=== PATIENT | female | born 1950 | race Caucasian/White ===

== ENCOUNTER 2023-10-15 13:21 | Emergency (ER) | payer OTHER, SELFPAY ==
[2023-10-15 13:29] VITALS: BP 194/97
[2023-10-15 14:02] LABS: % Basophils 0.8 % (0-2); % Eosinophils 2.6 % (0-6); % Immature Granulocytes 0.4 % (0-0.5); % Lymphocytes 21.4 % (20.5-51.1); % Monocytes 10.2 % (1.7-9.3); % Neutrophils 64.6 % (42.2-75.2); Absolute Basophils 0.1 10^3/uL (0-0.2); Absolute Eosinophils 0.2 10^3/uL (0-0.7); Absolute Lymphocytes 1.7 10^3/uL (1.2-3.4); Absolute Monocytes 0.8 10^3/uL (0.1-0.6); Absolute Neutrophils 5.2 10^3/uL (1.4-6.5); Hematocrit 39.4 % (37.0-47.0); Hemoglobin 13.4 g/dL (12.0-16.0); Mean Corpuscular Hgb 29.8 pg (27.0-31.0); Mean Corpuscular Volume 87.8 fL (81.0-99.0); Mean Platelet Volume 9.3 fL (7.4-10.4); Nucleated Red Blood Cells % 0 %; Platelet Count 324 10^3/uL (130-400); Red Blood Cell Count 4.49 10^6/uL (4.20-5.40); Red Cell Dist. Width 13.5 % (11.5-14.5)
[2023-10-15 14:18] LABS: ALT (SGPT) 27 U/L (0-35); AST (SGOT) 27 U/L (14-36); Albumin 4.3 g/dl (3.5-5.0); Alkaline Phosphatase 105 U/L (38-126); Blood Urea Nitrogen 22 mg/dl (7-17); Calcium 9.8 mg/dl (8.4-10.2); Carbon Dioxide 24 mmol/L (22-30); Chloride 103 mmol/L (98-107); Glucose 133 mg/dl (70-99); Potassium 4.2 mmol/L (3.5-5.1); Sodium 137 mmol/L (135-145); Total Bilirubin 0.7 mg/dl (0.2-1.3); Total Protein 7.3 g/dl (6.3-8.2); eGFR > 60.00
[2023-10-15 14:26] LABS: Troponin I < 0.012 ng/ml
--- NOTE | 2023-10-15 16:43 | ED.GENMED ---
History of Present Illness
General
Chief Complaint: Blood Pressure Problem
Source: patient
Exam Limitations: none
Time Seen by Provider: 10/15/23 16:16
Nursing documentation reviewed up to this point in time: agreed with
Travel History
Have you had any contact with someone who has COVID-19?: No
Do you have any symptoms of coronavirus? Fever > 100 degrees, chills, cough, shortness of breath, sore throat, loss of taste or smell, muscle aches, or headache?: No
History of Present Illness
History of Present Illness:
73-year-old female past history of hypertension hiatal hernia reflux presents to the ER for evaluation. She reports her hiatal hernia has been acting up in the past several days has had pain in epigastric area after eating. She feels like she
needs to sit up for a while after eating and that her pain does resolve. Time she feels that her back but this is typical of her reflux pain. She has not seen GI for this. She takes imbv-gds-rndctij Mylanta. In addition she is also has had some
right shoulder pain and right scapular pain which radiates to her right upper arm. She reports this is only worse with moving her right arm or laying on her right shoulder. She denies any actual injury. She has taken occasional Advil. She does
not currently either pain.
She had no associated shortness of breath. She came to the ER today because she was worried about her symptoms and the blood pressure was going up.
Past History
Past History
ED Past Medical History: GERD, HTN and Hypothyroidism
ED Past Surgical History: Cholecystectomy and Orthopedic
Social History
Tobacco: Non-smoker
Alcohol: None
Drug: None
Personal:
Living: with family
Review of Systems
Review of Systems
Allergies reviewed?: Yes
All Other Systems: ROS reviewed and negative except as documented in HPI and ROS
Constitutional: Reports no symptoms; Denies fever, fatigue or chills
EENT: Reports no symptoms
Respiratory: Denies trouble breathing
Cardiac: Denies chest pain, diaphoresis or syncope
ABD/GI: Reports other (Patient has had intermittent epigastric pain after eating which radiates to her back)
: Reports no symptoms
Musculoskeletal: Reports other (Intermittent pain from right shoulder blade to right upper arm)
Phy Exam
General Physical Exam
General Presentation: no apparent distress
General age: appears stated age
General Skin: warm and dry
General Habitus: normal
General Mental: alert
General Hydration: appears well hydrated
Cardiovascular Exam
Cardiovascular Exam: regular rate/rhythm, no murmur and normal peripheral pulses
Gastrointestinal Exam
Gastrointestinal Exam: normal bowel sounds, non tender and soft
Neurological Exam
Neurological Exam: alert and oriented x3
Musculoskeletal Exam
Musculoskeletal Exam: other (Normal inspection to right upper extremity no obvious swelling or redness very mild discomfort with full range of motion to right shoulder)
Skin Exam
Skin Exam: normal color and warm/dry
Psychiatric Exam
Psychiatric Exam: normal mood/affect
Course
Orders/Labs/Results
Orders:
Orders
10/15/23 13:31
Electrocardiogram (*1) Urgent
Reason for Study: Hypertension, Benign
EKG- Treatment ONCE
10/15/23 13:39
Complete Blood Count/With Diff Urgent
Comprehensive Metabolic Panel Urgent
Troponin I Urgent
10/15/23 17:03
Chest [CR Chest - 2 Views ] Urgent
Comment:
Reason For Exam: pain
Abnormal Lab Results
10/15/23
13:39
Absolute Monos (auto) 0.8 H 10^3/uL
(0.1-0.6)
Monocytes % 10.2 H %
(1.7-9.3)
BUN 22 H mg/dl
(7-17)
Glucose 133 H mg/dl
(70-99)
10/15/23 13:39
10/15/23 13:39
Vital Signs
Initial and Last Documented VS:
Initial Vital Signs
Temp Pulse Resp BP Pulse Ox
98.6 F 85 18 194/97 96
10/15/23 13:29 10/15/23 13:29 10/15/23 13:29 10/15/23 13:29 10/15/23 13:29
Last Documented Vital Signs
Temp Pulse Resp BP Pulse Ox
98.6 F 82 23 145/101 94
10/15/23 13:29 10/15/23 17:00 10/15/23 17:00 10/15/23 17:00 10/15/23 17:00
MDM/Problems Addressed
Differential Diagnosis Includes:
not limited to: reflux, known hiatal hernia , right shoulder tendonitis, radicular pain
MDM/Problems Addressed:
Patient is a 73-year-old female with no cardiac history she has a history of hypertension a known hiatal hernia and reflux. She has had issues with her hiatal hernia over the past several days and feels discomfort after eating feels the need to sit
up after eating and feels pain in her back with this. She denies any actual chest pain. She however has also had pain to the right shoulder and back which shoots down her right arm. She was concerned about both of the symptoms and because of this
reports her blood pressure was elevated which prompted her to come to the ER. She presents awake alert no acute distress. Patient has had issues over the past several days, negative cardiac troponin, no acute findings on EKG. Patient is awake
alert no acute distress. No abdominal discomfort normal LFTs normal unremarkable labs patient no acute distress here in the ER. no shoulder pain presenty
Will DC with follow-up with GI will have patient take [id number]-chpnkrv Pepcid and will also refer to Ortho for possible radicular type pain/possible tendinitis
Chronic conditions affecting care:
known hiatial hernia feels similar s/s now. known htn
*Critical Care Note
Total Time (30-74mins, 75-104mins- exclusive of procedures): Not Applicable
ED Attending Note
-
Portions of this chart may have been created with voice recognition software.� Occasional wrong word or��sound alike� substitutions may have occurred due to the inherent limitations of voice recognition software.
Discharge Plan
Departure
Patient Disposition: Home (Routine Discharge)
Date of Disposition: 10/15/23
Time of Disposition: 18:31
Patient with high blood pressure during this ER visit?: Yes
Condition: Fair
Covid-19: Not Applicable
Discharge Problem:
epigastric pain
Instructions: High Blood Pressure (DC), Shoulder Pain (DC), Abdominal Pain, Adult ED, BLOOD PRESSURE
Prescriptions:
No Action
ondansetron [Zofran ODT] 8 MG tablet,disintegrating
8 mg PO TIDPRN PRN (Reason: vomiting) Qty: 15 0RF
bisoprolol-hydrochlorothiazide 1 EACH tablet
1 ea PO DAILY
cyclobenzaprine 10 MG tablet
5 mg PO TID Qty: 15 0RF
liothyronine 5 MICROGRAM tablet
15 mcg PO DAILY 0RF
ibuprofen 800 MG tablet
800 mg PO TID Qty: 15 0RF
cephalexin 500 mg capsule
500 mg PO Q12H 7 Days Qty: 14 0RF
phenazopyridine [Pyridium] 100 mg tablet
100 mg PO TID PRN (Reason: Pain with urination) Qty: 6 0RF
Referrals:
Praneeth Campoverde MD [Family Provider] -
Gabe Moreira MD [Active] -
Josephine Olivo DO [Active] -
Activity Restrictions/Additional Instructions:
As discussed you may try ihzd-rgn-qhmeroc Pepcid but follow-up with family doctor as well as GI for further evaluation of your hiatal hernia and symptoms. Follow-up with orthopedics for further evaluation of your right arm/shoulder pain. He may
need more imaging to further evaluate this. Return if any worsening of symptoms
Interventions
Interventions:
*Risk Screen - Suicide Last Done: 10/15/23 13:29
*General Assessment Last Done: 10/15/23 13:29
*Neglect/Abuse Screening Last Done: 10/15/23 13:29
ED- Fall Risk Assessment Last Done: 10/15/23 16:48
*ED COVID-19 Vaccine History Last Done: 10/15/23 13:29
ED- Cardiac Assessment Last Done: 10/15/23 16:52
ED- Neurological Assessment Last Done: 10/15/23 16:48
ED- Pulmonary Assessment Last Done: 10/15/23 16:48
[2023-10-15 16:48] VITALS: BMI 38.5
[2023-10-15 16:56] VITALS: BP 139/101
[2023-10-15 17:00] VITALS: BP 145/101
== END 2023-10-15 18:45 | disposition home or self-care (01) ==
LOC: EMR 13:21
PROVIDERS: Emergency Medicine; EMERGENCY PHYSICIAN Emergency Medicine; FAMILY PHYSICIAN Internal Medicine
DX: R10.13 Epigastric pain (principal); I10 Essential (primary) hypertension; K21.9 Gastro-esophageal reflux disease without esophagitis; K44.9 Diaphragmatic hernia without obstruction or gangrene
CPT/HCPCS: 99285; 71046; 80053; 84484; 85025; 93005

== ENCOUNTER 2024-05-27 13:06 | Outpatient (RCR) | payer OTHER, SELFPAY | END 2024-05-27 23:59 | disposition home or self-care (01) | LOC: RPT 13:06 | PROVIDERS: ATTENDING PHYSICIAN Physician Assistant Medical; FAMILY PHYSICIAN Internal Medicine | DX: M62.838 Other muscle spasm (principal); M25.511 Pain in right shoulder; Z73.6 Limitation of activities due to disability | CPT/HCPCS: 97010; 97110; 97140; 97162 ==

== ENCOUNTER 2024-06-24 12:54 | Outpatient (RCR) | payer OTHER, SELFPAY | END 2024-06-24 23:59 | disposition home or self-care (01) | LOC: RPT 12:54 | PROVIDERS: ATTENDING PHYSICIAN Physician Assistant Medical; FAMILY PHYSICIAN Internal Medicine | DX: M62.838 Other muscle spasm (principal); M25.511 Pain in right shoulder; Z73.6 Limitation of activities due to disability; M54.2 Cervicalgia | CPT/HCPCS: 97010; 97110; 97140 ==

== ENCOUNTER 2024-08-11 06:22 | Day surgery (SDC) | payer OTHER, SELFPAY | END 2024-08-11 12:27 | disposition home or self-care (01) | LOC: GI 06:22 | PROVIDERS: ATTENDING PHYSICIAN Internal Medicine Gastroenterology | DX: R10.84 Generalized abdominal pain (principal); K57.30 Diverticulosis of large intestine without perforation or abscess without bleeding; K64.0 First degree hemorrhoids; R13.10 Dysphagia, unspecified; K22.89 Other specified disease of esophagus; K31.7 Polyp of stomach and duodenum; K63.5 Polyp of colon; D12.2 Benign neoplasm of ascending colon | CPT/HCPCS: 45385; 45380; 43239; 88305; 88342 ==

== ENCOUNTER 2024-12-10 16:48 | Inpatient (IN) | payer OTHER, SELFPAY ==
[2024-12-10] VITALS (35 sets, daily range): BP systolic 70–133; BP diastolic 20–119; BMI 38.6
[2024-12-10 12:41] LABS: % Basophils 0.2 % (0-2); % Eosinophils 0.1 % (0-6); % Immature Granulocytes 0.6 % (0-0.5); % Lymphocytes 10.6 % (20.5-51.1); % Neutrophils 80.5 % (42.2-75.2); Absolute Immature Granulocytes 0.1 10^3/uL (0-0.05); Absolute Lymphocytes 1.3 10^3/uL (1.2-3.4); Absolute Neutrophils 9.8 10^3/uL (1.4-6.5); Hematocrit 34.6 % (37.0-47.0); Hemoglobin 11.4 g/dL (12.0-16.0); Mean Corp Hgb Conc. 32.9 g/dL (33.0-37.0); Mean Corpuscular Hgb 29.7 pg (27.0-31.0); Mean Corpuscular Volume 90.1 fL (81.0-99.0); Mean Platelet Volume 10.7 fL (7.4-10.4); Nucleated Red Blood Cells % 0.2 %; Platelet Count 424 10^3/uL (130-400); Red Blood Cell Count 3.84 10^6/uL (4.20-5.40); White Blood Cell Count 12.1 10^3/uL (4.8-10.8)
[2024-12-10 12:54] LABS: Lactic Acid 2.5 mmol/L (0.7-2.0)
[2024-12-10 12:56] LABS: ALT (SGPT) 48 U/L (0-35); AST (SGOT) 50 U/L (14-36); Albumin 3.7 g/dl (3.5-5.0); Alkaline Phosphatase 110 U/L (38-126); Blood Urea Nitrogen 58 mg/dl (7-17); Calcium 9.4 mg/dl (8.4-10.2); Carbon Dioxide 21 mmol/L (22-30); Chloride 103 mmol/L (98-107); Estimated Creatinine Clearance 36 ml/min; Glucose 167 mg/dl (70-99); Lipase 71 U/L (23-300); Potassium 5.3 mmol/L (3.5-5.1); Sodium 135 mmol/L (135-145); Total Protein 6.6 g/dl (6.3-8.2); eGFR 31.47
[2024-12-10 13:14] LABS: NT-proBNP > 27000 pg/ml
--- NOTE | 2024-12-10 13:17 | ED.GENMED ---
History of Present Illness
<Mckenzie Ortiz PA-C - Last Filed: 12/10/24 15:22>
General
Chief Complaint: Cold/Flu/URI Symptoms
Source: patient
Exam Limitations: none
Time Seen by Provider: 12/10/24 11:07
Nursing documentation reviewed up to this point in time: agreed with
History of Present Illness
History of Present Illness:
74 y/o F with h/o HTN, IBS
here with gen fatigue, low bp, cough
cough started 2 weeks ago and is mostly dry but occ productive
she has felt fevers come and go, t max 100.5
she finally went to her PCP 2 days ago who noted her BP was low 90/50s which is unusual for her. he adalberto dher to stop her BP med
ordered labs and cxr but pt was too eweak to get it done yesterday
then last night was getting woken feelin ganxious and abdomianl pain
she apparently has had abdomina pain for months, related to suspected IBS but since being sick she has had more abdominal pain
she never had chest pain, pleuritic pain, significant SOB
she denies vomiting, diarrhea
has some constpation sometimes
has bentyl for her abdomianl pain to take from GI doctor from time to time
she was given tessalon for her cogh yesterday but it didn't help and hse felt sluggish so she didn't take any more doses
Past History
<Mckenzie Ortiz PA-C - Last Filed: 12/10/24 15:22>
Past History
ED Past Medical History: GERD, HTN and Hypothyroidism
ED Past Surgical History: Cholecystectomy and Orthopedic
Social History
Tobacco: Non-smoker
Alcohol: None
Drug: None
Personal:
Living: with family
Review of Systems
<Mckenzie Ortiz PA-C - Last Filed: 12/10/24 15:22>
Review of Systems
Allergies reviewed?: Yes
All Other Systems: Not applicable
Phy Exam
<Mckenzie Ortiz PA-C - Last Filed: 12/10/24 15:22>
Physical Exam
Physical Exam:
GENERAL: Alert , in no apparent distress, nonotixc, no distress
EYE: pupils equal and reactive
NECK: Supple
ENT: o/p clr, mmm.
CARDIAC: Regular rate and rhythm .no edema
LUNGS: occ cough, no tachypnea, sligh trales L base; no obvious murmur
ABDOMEN: Soft, without focal tenderness, no r/g, no cvat, normal bowel sounds
NEUROLOGICAL: Alert and oriented, no focal neuro deficits
SKIN: Warm and dry, skin intact.
MUSCULOSKELETAL: No edema, well perfused. neg estefanía's sign
PSYCH: Normal and appropriate interaction.
Course
<Mckenzie Ortiz PA-C - Last Filed: 12/10/24 15:22>
Orders/Labs/Results
Orders:
Orders
12/10/24 11:59
CR Abdomen - 2 Views Urgent
Reason For Exam: abd pain, constpation
CR Chest - 2 Views Urgent
Comment:
Reason For Exam: fever, cough x 2 weeks
12/10/24 12:33
Complete Blood Count/With Diff Urgent
Comprehensive Metabolic Panel Urgent
Lactic Acid Urgent
Lipase Urgent
NT-proBNP Urgent
Troponin I Urgent
12/10/24 13:17
Electrocardiogram (*1) Urgent
Reason for Study: Fatigue / Weakness
EKG- Treatment ONCE
12/10/24 13:34
Azithromycin 500 mg/250 ml [Zithromax Infusion] 500 mg in 250 ml IV NOW
CefTRIAXone [Rocephin] 2,000 mg IV NOW STA
12/10/24 13:40
Echo 2D MMode Color/Doppler Urgent
Reason for Study: elevated troponin, pneumonia
12/10/24 13:41
Sterile Water [Sterile Water For Injection] 20 ml .ROUTE .STK-MED
12/10/24 13:51
Aspirin Chewable [Low Strength Aspirin] 324 mg PO NOW STA
12/10/24 14:26
Ondansetron Injectable [Zofran] 4 mg IV NOW STA
12/10/24 14:55
Admit Patient As Directed
Co-Sign Provider:
Level of Care: Inpatient admission
Assign to:: IMU- Intermediate Care
Physician / Group: Dr. Cole
Diagnosis: Acute heart failure , HFrEF
Patient Condition: Serious
Reason for Hospitalization: Acute heart failure
Expected length of stay greater than two midnights?: Yes
ELOS- Estimated Length of Stay in days: 2
I certify the patient meets the requirements for IP care: Yes
Code Status As Directed
Resuscitation Status: Full Code
Activity As Directed
Activity Level: With Assistance
Notify MD As Directed
Notify physician if: Bridge Admission orders placed.
Notify attending physician:
-- upon arrival to unit
OR
-- when patient is identified as an ED hold
Vital Signs As Directed
Frequency: Per unit guidelines
O2 Therapy [RESP] Routine
Titrate/Wean O2 to maintain O2 sat greater than (%): 92
12/10/24 14:58
Morphine Sulfate 2 mg .ROUTE .STK-MED ONE
12/10/24 14:59
PRN Pain Medication Management As Directed
May give lesser potent ordered pain med per pt: Yes
preference::
Protocol:: Medication orders for pain may be administered in a
manner that supports deferring to patient preference
when the pt is:
- Requesting an ordered lesser potent pain medication.
Least to most potent pain medications are defined
as: acetaminophen < NSAID < tramadol < opioids
(morphine, oxycodone, hydromorphone).
- Requesting a lesser dose of the same medication IF
ORDERED.
- Requesting a less intrusive route of administration
if both routes are prescribed by the provider (PO <
IV).
12/10/24 Dinner
Cholesterol Lowering
Fluid Restriction: 1500 mL/day (50 oz)
Cholesterol Lowering: Sodium, 2 Gram
0.9% Sodium Chloride 1000 ml [Nss] 1,000 ml IV BOLUS
12/10/24 15:01
Morphine Sulfate 2 mg IV NOW STA
12/10/24 15:03
DX Deep Vein Thrombosis Video Routine
12/10/24 15:12
0.9% Sodium Chloride 500 ml [Nss] 500 ml IV BOLUS
12/10/24 16:00
Flush (0.9% Sodium Chloride) [Flush (Nss)] See Dose Instructions IV PER PROTOCOL
12/10/24 20:00
Heparin 5,000 units SC Q12
Abnormal Lab Results
12/10/24
12:33
WBC 12.1 H 10^3/uL
(4.8-10.8)
RBC 3.84 L 10^6/uL
(4.20-5.40)
Hgb 11.4 L g/dL
(12.0-16.0)
Hct 34.6 L %
(37.0-47.0)
MCHC 32.9 L g/dL
(33.0-37.0)
Plt Count 424 H 10^3/uL
(130-400)
MPV 10.7 H fL
(7.4-10.4)
Abs Immat Gran (auto) 0.1 H 10^3/uL
(0-0.05)
Absolute Neuts (auto) 9.8 H 10^3/uL
(1.4-6.5)
Absolute Monos (auto) 1.0 H 10^3/uL
(0.1-0.6)
Immature Gran % 0.6 H %
(0-0.5)
Neutrophils % 80.5 H %
(42.2-75.2)
Lymphocytes % 10.6 L %
(20.5-51.1)
Potassium 5.3 H mmol/L
(3.5-5.1)
Carbon Dioxide 21 L mmol/L
(22-30)
BUN 58 H mg/dl
(7-17)
Creatinine 1.7 H mg/dL
(0.6-1.0)
Glucose 167 H mg/dl
(70-99)
Lactic Acid 2.5 H mmol/L
(0.7-2.0)
AST 50 H U/L
(14-36)
ALT 48 H U/L
(0-35)
Troponin I 12.500 H* ng/ml
12/10/24 12:33
12/10/24 12:33
Vital Signs
Initial and Last Documented VS:
Initial Vital Signs
Temp Pulse Resp BP Pulse Ox
36.7 C 99 18 110/83 99
12/10/24 10:39 12/10/24 10:39 12/10/24 10:39 12/10/24 10:39 12/10/24 10:39
Last Documented Vital Signs
Temp Pulse Resp BP Pulse Ox
36.8 C 69 27 105/80 98
12/10/24 14:31 12/10/24 14:15 12/10/24 14:15 12/10/24 14:00 12/10/24 14:15
<Kevin Cason MD - Last Filed: 12/10/24 13:42>
Orders/Labs/Results
Orders:
Orders
12/10/24 11:59
CR Abdomen - 2 Views Urgent
Reason For Exam: abd pain, constpation
CR Chest - 2 Views Urgent
Comment:
Reason For Exam: fever, cough x 2 weeks
12/10/24 12:33
Complete Blood Count/With Diff Urgent
Comprehensive Metabolic Panel Urgent
Lactic Acid Urgent
Lipase Urgent
NT-proBNP Urgent
Troponin I Urgent
12/10/24 13:17
Electrocardiogram (*1) Urgent
Reason for Study: Fatigue / Weakness
EKG- Treatment ONCE
12/10/24 13:34
Azithromycin 500 mg/250 ml [Zithromax Infusion] 500 mg in 250 ml IV NOW
CefTRIAXone [Rocephin] 2,000 mg IV NOW STA
12/10/24 13:40
Echo 2D MMode Color/Doppler Urgent
Reason for Study: elevated troponin, pneumonia
12/10/24 13:41
Sterile Water [Sterile Water For Injection] 20 ml .ROUTE .STK-MED
12/10/24 13:51
Aspirin Chewable [Low Strength Aspirin] 324 mg PO NOW STA
12/10/24 14:26
Ondansetron Injectable [Zofran] 4 mg IV NOW STA
12/10/24 14:55
Admit Patient As Directed
Co-Sign Provider:
Level of Care: Inpatient admission
Assign to:: IMU- Intermediate Care
Physician / Group: Dr. Cole
Diagnosis: Acute heart failure , HFrEF
Patient Condition: Serious
Reason for Hospitalization: Acute heart failure
Expected length of stay greater than two midnights?: Yes
ELOS- Estimated Length of Stay in days: 2
I certify the patient meets the requirements for IP care: Yes
Code Status As Directed
Resuscitation Status: Full Code
Activity As Directed
Activity Level: With Assistance
Notify MD As Directed
Notify physician if: Bridge Admission orders placed.
Notify attending physician:
-- upon arrival to unit
OR
-- when patient is identified as an ED hold
Vital Signs As Directed
Frequency: Per unit guidelines
O2 Therapy [RESP] Routine
Titrate/Wean O2 to maintain O2 sat greater than (%): 92
12/10/24 14:58
Morphine Sulfate 2 mg .ROUTE .STK-MED ONE
12/10/24 14:59
PRN Pain Medication Management As Directed
May give lesser potent ordered pain med per pt: Yes
preference::
Protocol:: Medication orders for pain may be administered in a
manner that supports deferring to patient preference
when the pt is:
- Requesting an ordered lesser potent pain medication.
Least to most potent pain medications are defined
as: acetaminophen < NSAID < tramadol < opioids
(morphine, oxycodone, hydromorphone).
- Requesting a lesser dose of the same medication IF
ORDERED.
- Requesting a less intrusive route of administration
if both routes are prescribed by the provider (PO <
IV).
12/10/24 Dinner
Cholesterol Lowering
Fluid Restriction: 1500 mL/day (50 oz)
Cholesterol Lowering: Sodium, 2 Gram
0.9% Sodium Chloride 1000 ml [Nss] 1,000 ml IV BOLUS
12/10/24 15:01
Morphine Sulfate 2 mg IV NOW STA
12/10/24 15:03
DX Deep Vein Thrombosis Video Routine
12/10/24 15:12
0.9% Sodium Chloride 500 ml [Nss] 500 ml IV BOLUS
12/10/24 16:00
Flush (0.9% Sodium Chloride) [Flush (Nss)] See Dose Instructions IV PER PROTOCOL
12/10/24 20:00
Heparin 5,000 units SC Q12
Abnormal Lab Results
12/10/24
12:33
WBC 12.1 H 10^3/uL
(4.8-10.8)
RBC 3.84 L 10^6/uL
(4.20-5.40)
Hgb 11.4 L g/dL
(12.0-16.0)
Hct 34.6 L %
(37.0-47.0)
MCHC 32.9 L g/dL
(33.0-37.0)
Plt Count 424 H 10^3/uL
(130-400)
MPV 10.7 H fL
(7.4-10.4)
Abs Immat Gran (auto) 0.1 H 10^3/uL
(0-0.05)
Absolute Neuts (auto) 9.8 H 10^3/uL
(1.4-6.5)
Absolute Monos (auto) 1.0 H 10^3/uL
(0.1-0.6)
Immature Gran % 0.6 H %
(0-0.5)
Neutrophils % 80.5 H %
(42.2-75.2)
Lymphocytes % 10.6 L %
(20.5-51.1)
Potassium 5.3 H mmol/L
(3.5-5.1)
Carbon Dioxide 21 L mmol/L
(22-30)
BUN 58 H mg/dl
(7-17)
Creatinine 1.7 H mg/dL
(0.6-1.0)
Glucose 167 H mg/dl
(70-99)
Lactic Acid 2.5 H mmol/L
(0.7-2.0)
AST 50 H U/L
(14-36)
ALT 48 H U/L
(0-35)
Troponin I 12.500 H* ng/ml
12/10/24 12:33
12/10/24 12:33
Vital Signs
Initial and Last Documented VS:
Initial Vital Signs
Temp Pulse Resp BP Pulse Ox
36.7 C 99 18 110/83 99
12/10/24 10:39 12/10/24 10:39 12/10/24 10:39 12/10/24 10:39 12/10/24 10:39
Last Documented Vital Signs
Temp Pulse Resp BP Pulse Ox
36.8 C 69 27 105/80 98
12/10/24 14:31 12/10/24 14:15 12/10/24 14:15 12/10/24 14:00 12/10/24 14:15
<Mckenzie Ortiz PA-C - Last Filed: 12/10/24 15:22>
MDM/Problems Addressed
Differential Diagnosis Includes:
pnemonita, myocarditis, pericarditis, pericardial effusion, nstemi
MDM/Problems Addressed:
74 y/o F
from home for 2 weeks of cough and gradual worsening gen weakness/fatigue bx 2 days
she went to PCP who noted pt's BP to be low 90s/50s and told her to stop her BP meds for now
pt didn't have any labs or imaging done becuase she was too weak to get there
no cp, sob
pt says she has had intermittent abd pain, mostly lower abd sometimes upper abd for a year and has had w/u and takes bentyl for it
that was bothering her last night as well but thisis not new, just worse
pt has been seen here for this abdomianl pain before and had neg imaging;
pt says this is similar to previou epsidoes that are chornic
pt appears pale, but is awake and alert and occ coughs but otherwise was in no distress
abd nontender
lungs mostly clear, sublte crackles base
troponin resultted 12, with bnp > [id number], wbc 12, lactate 2.5, MIKI,
ekg is low voltage and q waves septally
d/w ed attending dr cason who saw her
she was wlel appearing during this inital eval, and with no CP
he recommended ASA, holding heparin and consult cards; echo ordered
pt refused the aspirin became nauseaed and was dry heaving
and then developed her typical lower abd pain
i ordered morphine but after her ehco and before she could be given the morphine, pt dropped her BP to 70s/50s;
iinitally was not clear this was sepsis and thus held on IVF but pt was then seen by ed attending
feels that her hypotension is less likely infectious/sepsis but more likely hypoperfusion and recommends IVf
cards to see pt now ([id number]) and hospitalist updated on her condition
<Mckenzie Ortiz PA-C - Last Filed: 12/10/24 15:22>
*Critical Care Note
Total Time (30-74mins, 75-104mins- exclusive of procedures): Not Applicable
ED Attending Note
<Mckenzie Ortiz PA-C - Last Filed: 12/10/24 15:22>
-
Portions of this chart may have been created with voice recognition software.� Occasional wrong word or��sound alike� substitutions may have occurred due to the inherent limitations of voice recognition software.
<Kevin Cason MD - Last Filed: 12/10/24 13:42>
ED Attending Note
Patient seen and examined by attending physician: Yes
I performed the substantive portion of visit, reviewed & personally made and approve the management plan that is documented in note by myself or LENY.: Yes
ED Attending Note:
74-year-old female with vague symptoms for a weeks cough congestion flulike symptoms general fatigue and weakness. No fever. Lightheadedness at times.
On exam patient is nontoxic in no distress. Normocephalic atraumatic. Lungs clear and equal. Heart sounds distant. Abdomen soft nontender. Warm and dry. Perfusing well. Grossly nonfocal.
EKG shows low voltage and nonspecific changes. Nonspecific elevated white count. Positive troponin. EKG renal insufficiency. Significant proBNP elevated
Will admit to hospitalist. Get cardiology involvement. Ordered bedside echo to evaluate for pericardial effusion and possible right heart strain issues.
Discharge Plan
Departure
Patient Disposition: Admit
Date of Disposition: 12/10/24
Time of Disposition: 13:51
Admit to: Telemetry
Presentation/result/management discussed w/ accepting MD/DO: Hospitalist
Condition: Fair
Covid-19: Not Applicable
Discharge Problem:
Pneumonia, Non-STEMI (non-ST elevated myocardial infarction)
Prescriptions:
No Action
No Current Medications
0
Referrals:
Praneeth Campoverde MD [Family Provider] -
Interventions
Interventions:
*Risk Screen - Suicide Last Done: 12/10/24 10:39
*General Assessment Last Done: 12/10/24 10:39
*Neglect/Abuse Screening Last Done: 12/10/24 10:39
*ED COVID-19 Vaccine History Last Done: 12/10/24 10:39
ED- Pulmonary Assessment Last Done: 12/10/24 14:30
Discharge Date and Time
Print Language: BULGARIAN
[2024-12-10] MEDS: ROCEPHIN 2000 MG IV (13:46)
[2024-12-10] MEDS: ZITHROMAX INFUSION 250 IV (13:58)
--- NOTE | 2024-12-10 14:38 | CON.CAR ---
Addendum entered and electronically signed by John Valderrama MD 12/10/24 16:16:
74 yo female with PMH of HTN admitted with malaise, low grade fever, diffuse pain. Symptoms started with cough about 2.5 weeks ago. Then continued to worsen and presented to ED. There is no chest pain. Exam with RRR, III/ systolic murmur at apex,
no edema. Cr 1.7. lac 2.5. TnI 12. Echo: severely reduced biventricular function, severe MR and TR, RV thrombus.
Presentation seems consistent with cardiogenic shock. She has had about 2.5 weeks of symptoms consistent with viral syndrome, so this may likely be secondary to myocarditis. Overall she looks better than one would expect based on echo and lab
finding. BP is low. We will start milrinone, and also levophed for BP support.
Based on Cr trend, will decide on cath tomorrow for ischemic eval. Will eventually add on GDMT.
RV thrombus. Start heparin drip.
Original Note:
Consultation
Consultation Request
Date/Time Consultation Requested: 12/10/24 1340
Date/Time Consultation Performed: 12/10/24 1439
Requesting Provider: Mckenzie EDDY
Performing Provider: Mary WINN for Dr. Valderrama
Reason for Consultation: abnormal troponin
Medical History
-
Chief Complaint: fatigue, fever, cough, hypotension
History of Present Illness:
74 y/o female with hypertension is here for evaluation of fatigue, fever, cough, back/neck, and abdominal pain, and low BP- symptoms started about 2 weeks ago. We are consulted since troponin is 12.5. She is specifically having no CP or SOB. EKG
shows SR with low voltage QRS. Echo in ER showed EF 20%, severe MR, severe TR, and RV thrombus. She is in no distress at the time of my assessment. BP is low and this is concerning for cardiogenic shock and we will begin milrinone and Levophed and
patient for ICU.
Past Medical History
Past Medical History: HTN
Social History
Tobacco: Non-Smoker
Alcohol: None
Drug: None
Family History
Family History: Reviewed & Not Pertinent
Allergies / Home Medications
Allergy/AdvReac Type Severity Reaction Status Date / Time
codeine Allergy VOMITING Verified 04/24/23 12:46
�Medication �Instructions �Recorded �Confirmed �Type
No Meds [No Current Medications] 12/10/24 12/10/24 History
Review of Systems
-
History Source: Patient
All other systems: Negative unless noted
Constitutional: Fever
Respiratory: Cough
Abdomen/GI: Abdominal Pain
Musculoskeletal: Other (back and neck pain)
Physical Exam
Vital Signs
Temp Pulse Resp BP Pulse Ox
98.2 F 69 27 105/80 98
12/10/24 14:31 12/10/24 14:15 12/10/24 14:15 12/10/24 14:00 12/10/24 14:15
Lab Results
12/10/24 12:33
12/10/24 12:33
Troponin I 12.500 ng/ml H* 12/10/24 12:33
Jbi-N-Uaxreiclitb Pept > 31798 pg/ml 12/10/24 12:33
Physical Exam
General: Well Developed, Well Nourished and No Apparent Distress
HEENT: Normocephalic and Anicteric
Respiratory: Clear and Non Labored Respirations
Cardiac: Regular Rhythm
Musculoskeletal: No Edema
Skin: Warm and Dry
Neuro: AO x 3
Psych: Calm
Impression / Plan
-
Myocarditis (sounds like patient with recent viral illness), cardiogenic shock:
-this condition is threat to life
-initiate milrinone and Levophed- these both require intensive monitoring
-ICU care
RV thrombus:
-IV heparin, which requires intensive monitoring
Abnormal troponin:
-acute, non ischemic myocardial injury in setting of above
-trend to peak
-may cath tomorrow if renal function better and patient stable for cath- keep NPO after MN and would need full dose ASA prior if she is going to be cathed.
MIKI:
-repeat in AM
Data:
Echo 12/10/24: Left ventricle is mildly dilated. Severely reduced left ventricular systolic function. Left ventricular ejection fraction is 20%. Severe mitral regurgitation. Enlarged right ventricular size. Reduced right ventricular systolic function.
Severe tricuspid regurgitation. Echodensity seen in right ventricular apex, measuring 2.0 x 1.1 cm. Suspected thrombus.
Data Reviewed
-
EKG: Tracing Personally Visualized and interpreted (SR with PVC's, low voltage QRS)
Radiology: Report Reviewed by me (CXR: There is patchy airspace disease in the lower lobes which could be atelectasis but early pneumonia cannot be excluded.)
Medical Tests (Nuc Med, Echo etc): Report Reviewed by me (echo as noted)
Labs: Labs Reviewed by me
[2024-12-10] MEDS: ZOFRAN 4 MG IV (14:48)
--- NOTE | 2024-12-10 15:11 | HPS.HSE ---
Addendum entered and electronically signed by Garo Cole MD 12/10/24 21:30:
Attending Addendum-
I performed a history and physical exam of the patient and discussed his management with the resident. I reviewed the resident's note and agree with the documented findings and plan of care CC/HPI- Patient present to ED with SOB fever fatigue and
cold like sxs x 2 weeks. PCP ordered labs and cxr but patient was too sick to get them done and came to ed instead. Does admit to PND and orthopnea x a few months.Deneis CP, palps, swelling in LE. Seen with . Full 12 point ROS reviewed and
negative except as documented Exam- vitals reviewed in EMR GEN-NAd Heart RRR 10/09 SM @ apex lungs CTA B/L abd obese soft mildly ttp epigastric area LE no edema
Plan:
# Acute Cardiomyopathy with reduced LV systolic function/Cardiogenic Shock
- admit to ICU
- BNP >36603
- possibly due to recent vial illness and myocarditis
- check COVID
- stat echo done in ED-
Left ventricle is mildly dilated. Severely reduced left ventricular systolic function. Left ventricular ejection fraction is 20%.
Severe mitral regurgitation.
Severe tricuspid regurgitation.
Echodensity seen in right ventricular apex, measuring 2.0 x 1.1 cm. Suspected thrombus.
- start milrinone
- cards c/s- appreciate inout
- strict I and O fluid strict daily weights
# Suspected RV thrombus
- underlying PE vs hypercoag state?
- patient with h/o COVID in 2022, check covid
- check CT with contrast when kidney function improved
- start heparin gtt follow cm closely
# NIMI
- likely from myocarditis
- trend trop until peak, initial 12.5
- cont to monitor closely
# Septic Shock from CAP
- start rocephin/doxy
- start levophed
- maintain MAP > 65
- trend LA
- check stat blood cx (not done)
# Transaminitis
- mild
- trend
# MIKI
- prerenal from cardiogenic shock
- trend BMP
# Hyperkalemia
- from MIKI
- monitor
- trend
# HTN- hold losartan
# H/O Hypothyroidism- per patietn 'resolved' check TSH
DVTp- heparin gtt
CODE- FULL
ACP
Patient consented to discuss, was with , time spent explanation of advance directives, changes in health status, patient�s health care wishes if the patient becomes unable to make health decisions, goals of care, code status, and prognosis-
16 minutes
CC Note
Due to a high probability of clinically significant, life-threatening deterioration, the patient required a high level of preparedness to intervene emergently. I personally spent this critical care time directly and personally managing the patient.
This critical care time included obtaining a history; examining the patient; ordering and review of studies and STAT labs; arranging urgent treatment with development of a management plan; evaluation of patient's response to treatment; reassessment;
and, discussions with other providers.
This critical care time was performed to assess and manage the high probability of imminent, life-threatening deterioration that could result in multi-organ failure. It was exclusive of separately billable procedures and treating other patients and
teaching time. Total time documented is also exclusive of any additional time listed that was spent in advance care planning discussion
Total critical care time: Approximately 37 minutes
Original Note:
Family Physician
-
Family Physician: Praneeth Campoverde
Chief Complaint
-
Dyspnea, cough
History of Present Illness
74-year-old female with past medical history of hypertension presented to the ER reporting cough, fever, fatigue and shortness of breath that started 2-1/2 weeks ago. Patient has been producing purulent sputum when she coughs, tried Mucinex and
Tessalon Perles without much help. She also reports having low-grade fevers with Tmax of 100.5. Patient has a history of IBS with chronic abdominal pain and it has worsened over the past 2 weeks. She had PND and orthopnea. No recent history of
travel, sick contacts. Presentation in the ER EKG showed NSR with low voltage QRS. Echo showed ejection fraction of 20% with severe MR/TR and right ventricle thrombus. Was hypotensive in 80s/50s. Drops elevated at 12.5, proBNP > 27,000, elevated
lactate�2.5, cardiology was consulted and she was started on milrinone and Levophed for cardiogenic shock.
Medical History
Past Medical History
Past Medical History: Reports HTN and Hypothyroidism (Patient reported, but does not take any medications)
Past Surgical History: Reports Cholecystectomy
Social History
Tobacco: Non-smoker
Alcohol: None
Drug: None
Personal:
Living: With Family
Employment: Not Employed
Family History
Family History: Not pertinent
Allergies / Home Medications
Allergies reflects when Allergies were last updated in [facility].
Home Medications with original date entered in [facility]
Allergy/Medication List:
Allergies
Allergy/AdvReac Type Severity Reaction Status Date / Time
codeine Allergy VOMITING Verified 04/24/23 12:46
Home Medications
No Meds [No Current Medications] 12/10/24
Review of Systems
-
A 12 point ROS was completed and negative except as noted: Yes
Physical Exam
Vital Signs
Vital Signs
Temp Pulse Resp BP Pulse Ox
98.2 F 69 27 105/80 98
12/10/24 14:31 12/10/24 14:15 12/10/24 14:15 12/10/24 14:00 12/10/24 14:15
Physical Exam
General: Well Developed and Well Nourished
HEENT: NormoCephalic, Anicteric and Moist mucous membranes
Respiratory: Clear
Cardiac: S1/S2 and Regular Rhythm
GI: Soft and Tender (Diffusely tender)
Skin: Other (Cold lower extremities)
Neuro: Awake, Alert, Oriented and AO x 3
Laboratory Results
-
12/10/24 12:33
12/10/24 12:33
Laboratory Results
Lactic Acid 2.5 mmol/L (0.7-2.0) H 12/10/24 12:33
Total Bilirubin 1.0 mg/dl (0.2-1.3) 12/10/24 12:
AST 50 U/L (14-36) H 12/10/24 12:
ALT 48 U/L (0-35) H 12/10/24 12:
Alkaline Phosphatase 110 U/L (38-126) 12/10/24 12:33
Troponin I 12.500 ng/ml H* 12/10/24 12:33
Lipase 71 U/L (23-300) 12/10/24 12:33
Impression/Plan
-
IMPRESSION:
74-year-old female presenting with dyspnea, cough, abdominal pain admitted in the ICU for management of cardiogenic shock.
PLAN:
1. Acute onset dyspnea
Differentials might be heart failure, pneumonia, PE, MA
EKG�NSR with low voltage QRS
Echo�20% ejection fraction, severe MR, severe TR, right ventricular thrombus.
Patient on room air saturating at 96%
Patient has history of hypertension, last losartan dose on Sunday.
Cardiology consulted
Patient hypotensive, elevated lactate at 2.5
Cardiogenic shock�2/2 to myocarditis, recent viral infection
Started on pressors�Levophed, milrinone
Monitor I/os
Transfer to ICU
2. Pneumonia
Chest x-ray evidence of patchy airspace disease in the lower lobes
Elevated white count and tachypneic.
Continue ceftriaxone
DC azithromycin, will start doxycycline
Monitor O2 sats
3. Elevated troponins
12.5, likely due to nonischemic cardiomyopathy
EKG low voltage QRS complexes, negative for MA., x-ray showed evidence of cardiomegaly
No pericardial rub
Trend troponins X2
Cardiology on board
Possible cath tomorrow if patient is stable to rule out ischemia
4. Right ventricular thrombus
Started on heparin drip
5. MIKI
No known kidney injury from labs on 10/15/2023
Baseline serum creatinine at 0.9.
Serum creatinine today at 1.7, BUN at 58.
Likely prerenal.
trend serum creatinine.
6. Mild hyperkalemia-
Likely secondary to MIKI and losartan.
Hold losartan.
7. Elevated blood glucose levels-
Check HbA1c in the a.m.
DVT prophylaxis-
Heparin GTT
CODE STATUS-
Full code
[2024-12-10] MEDS: NSS 500 IV (15:24)
[2024-12-10] MEDS: HEPARIN 8400 UNITS IV (15:56)
[2024-12-10] MEDS: HEPARIN 25000 UNITS/250 ML IV (16:00)
[2024-12-10] MEDS: LEVOPHED 250 IV (16:01)
[2024-12-10] MEDS: PRIMACOR 20 MG 100 IV (17:04)
[2024-12-10 17:36] LABS: APTT > 200 Sec (23.4-35.0)
--- NOTE | 2024-12-10 18:10 | PTCARENOTE ---
Received pt from the ED with RN, monitored w/IV Milrinone, heparin and Norepinephrine. She is awake and alert. Conversant and stated she feels so much better. Right wrist #20g protective catheter and Left wrist #18g protective catheter flushed and
patent. Breath sounds CTA posteriorly. RA pulse ox 95%. +BSX4. CHG bath provided on admission. Safe environment maintained. Informed on the plan of care and the importance of daily weights for early intervention of Heart failure. Will continue to
monitor,
[2024-12-10 19:31] LABS: Magnesium 2.3 mg/dl (1.6-2.3); Phosphorus 6.6 mg/dl (2.5-4.5)
--- NOTE | 2024-12-10 20:30 | PTCARENOTE ---
Pt received start of shift, HR SR/ST w/ PVCs. Milrinone, heparin, and levo gtts infusing as ordered. Pt AAOx4. Pt c/o 9/10 foot cramp in R foot. Pt states she sometimes gets it at home and heat helps - heating pack placed on foot - pain resolved.
B/l DP pulse present, weak on palpation. Educated pt on plan of care, pt states understanding. Call weber within reach.
[2024-12-10] MEDS: DESENEX/MITRAZOL/ZEASORB 1 APPLIC TOPICAL (22:07)
[2024-12-10] MEDS: VIBRAMYCIN 100 MG PO (22:07)
[2024-12-10 22:20] LABS: Lactic Acid 2.8 mmol/L (0.7-2.0)
[2024-12-10 22:25] LABS: COVID-19 Antigen Negative (Negative)
[2024-12-10 22:35] LABS: APTT > 200 Sec (23.4-35.0)
[2024-12-11] VITALS (57 sets, daily range): BP systolic 69–130; BP diastolic 49–116; PULSE 90–99; O2SAT 96; BMI 38.8
[2024-12-11] MEDS: DILAUDID 0.25 MG IV (00:03)
--- NOTE | 2024-12-11 00:46 | PTCARENOTE ---
Pt w/ another episode of cramping in foot. Pt states it feels as if the cramps are intensifying. More PVCs noted on telemetry. Labs drawn and sent. Mi for pain - see OCT. Pt SpO2 86% while asleep, 2L NC placed on pt. No further changes in
assessment.
[2024-12-11 01:09] LABS: ALT (SGPT) 53 U/L (0-35); AST (SGOT) 56 U/L (14-36); Albumin 3.9 g/dl (3.5-5.0); Alkaline Phosphatase 125 U/L (38-126); Blood Urea Nitrogen 62 mg/dl (7-17); Calcium 8.8 mg/dl (8.4-10.2); Carbon Dioxide 13 mmol/L (22-30); Chloride 103 mmol/L (98-107); Estimated Creatinine Clearance 30 ml/min; Glucose 207 mg/dl (70-99); Magnesium 2.3 mg/dl (1.6-2.3); Phosphorus 6.9 mg/dl (2.5-4.5); Potassium 4.5 mmol/L (3.5-5.1); Sodium 133 mmol/L (135-145); Total Bilirubin 0.9 mg/dl (0.2-1.3); Total Protein 6.6 g/dl (6.3-8.2); eGFR 25.89
--- NOTE | 2024-12-11 04:00 | SUR.PHASEI ---
Pt w/o void overnight. Pt states she feels as if there is nothing to come out. Bladder scan 151. bicarb low on AM labs. Amp of bicarb ordered and administered - see MAR. Continuing to titrate levo down.
[2024-12-11 04:10] LABS: Lactic Acid 1.7 mmol/L (0.7-2.0)
[2024-12-11 04:29] LABS: Procalcitonin 0.18 ng/ml (0.0-0.25)
[2024-12-11 04:48] LABS: ALT (SGPT) 61 U/L (0-35); AST (SGOT) 64 U/L (14-36); Albumin 3.9 g/dl (3.5-5.0); Alkaline Phosphatase 126 U/L (38-126); Blood Urea Nitrogen 63 mg/dl (7-17); Calcium 8.7 mg/dl (8.4-10.2); Carbon Dioxide 15 mmol/L (22-30); Chloride 102 mmol/L (98-107); Estimated Creatinine Clearance 30 ml/min; Glucose 192 mg/dl (70-99); Potassium 4.6 mmol/L (3.5-5.1); Sodium 133 mmol/L (135-145); Total Bilirubin 0.9 mg/dl (0.2-1.3); Total Protein 6.6 g/dl (6.3-8.2); eGFR 25.89
[2024-12-11] MEDS: SODIUM BICARBONATE 50 MEQ IV (04:50)
[2024-12-11 05:18] LABS: TSH Reflex To Free T4 2.81 uIU/ml (0.47-4.68)
--- NOTE | 2024-12-11 06:23 | W.PN.HOSP.TC ---
Addendum entered and electronically signed by Garo Cole MD 12/11/24 21:06:
Attending Addendum-
I saw and evaluated the patient. I reviewed the resident�s note and agree with findings and plan as documented in the resident�s note. Sub: Feels improved today. Urinating as usual. Denies CP, palps, SOB fatigue, swelling in LE. Seen with
and daughter. Full 12 point ROS reviewed and negative except as documented Exam- vitals reviewed in EMR GEN-NAD Heart RRR 10/09 SM @ apex lungs CTA B/L abd obese soft NT ND pos BS LE no edema
Plan:
# Acute Cardiomyopathy with reduced LV systolic function/Cardiogenic Shock
- cont care in ICU
- BNP >46509
- possibly due to recent vial illness/myocarditis
- Covid-neg
- stat echo done in ED-
Left ventricle is mildly dilated. Severely reduced left ventricular systolic function. Left ventricular ejection fraction is 20%.
Severe mitral regurgitation.
Severe tricuspid regurgitation.
Echodensity seen in right ventricular apex, measuring 2.0 x 1.1 cm. Suspected thrombus.
- increase milrinone
- cards c/s- appreciate input
- strict I and O fluid strict daily weights
- start lasix gtt
- cont Levophed
- maintain MAP > 65
- eventual cath
- would benefit from afterload reduction unable to use ABDULLAHI/ARB possible hydral+nitrates when able
- avoid bblockers
# RV thrombus
- underlying PE vs hypercoag state?
- patient with h/o COVID in 2022, now covid neg
- check CT PE study when IMKI resolves
- cont heparin gtt follow aptt closely
# NIMI
- likely from myocarditis
- peaked @ 13
- cont to monitor closely
# Hyponatremia
- hypervolemic
- lasix gtt
- CTM
# Metabolic Acidosis
- from MIKI
- CTM
# Hyperphosphatemia
- from MIKI
- CTM
# Transaminitis
- mild
- trend
# MIKI
- worsening
- cardiorenal
- nephro on board
- monitor UO closely check UA P/C ratio
# Hyperkalemia
- from MIKI
- resolved
- CTM
# HTN- hold losartan
# H/O Hypothyroidism- per patient 'resolved' check TSH
DVTp- heparin gtt
CODE- FULL
CC Note
Due to a high probability of clinically significant, life-threatening deterioration, the patient required a high level of preparedness to intervene emergently. I personally spent this critical care time directly and personally managing the patient.
This critical care time included obtaining a history; examining the patient; ordering and review of studies and STAT labs; arranging urgent treatment with development of a management plan; evaluation of patient's response to treatment; reassessment;
and, discussions with other providers.
This critical care time was performed to assess and manage the high probability of imminent, life-threatening deterioration that could result in multi-organ failure. It was exclusive of separately billable procedures and treating other patients and
teaching time.
Total critical care time: Approximately 35 minutes
Original Note:
Today's Communication/Plan
-
Adjust pressors with maintaining MAP> 60.
IV Lasix 80 mg stat
Assessment / Plan
Assessment / Plan
Assessment
74-year-old female with history of hypertension admitted to ICU in critically ill condition for the management of cardiogenic shock
Plan
1. Cardiogenic shock
HFrEF secondary to myocarditis (recent viral infection)
COVID-negative
Patient on Levophed 2, milrinone 0.125
Will wean off Levophed, increase milrinone to 0.25 with MAP> 60
Echo�ejection fraction 20%, right ventricular thrombus
Cannot do right heart catheterization due to thrombus, possibly [place]
If patient is stable, CT chest PE study
Cardiology on board
Strict I/os, daily weights
BNP> 27,000
Trend trops
Eventually will start GDMT, cannot give a beta-michelle, can go with hydralazine.
2. Pneumonia
Chest x-ray�evidence of patchy airspace disease
Continue ceftriaxone/doxycycline
Blood cultures, sputum cultures, urine cultures pending
Lactate trended down from 2.5> 1.7
COVID-negative
Monitor O2 sats
3. Right ventricular thrombus
Continue heparin GTT
Patient in MIKI
CT chest PE study when patient is stable
4. MIKI
No known kidney injury from labs on 10/15/2023
Baseline serum creatinine at 0.9.
Serum creatinine today at 2.0, BUN at 63
Likely prerenal.
trend serum creatinine.
No urine output, bladder scan�200 cc
Will do IV Lasix 80 mg stat
Monitor, may require IV Lasix, if no output.
Losartan on hold
5. Transaminitis
Trending up
Monitor for now
6. History of hypothyroidism
TSH�2.81
DVT prophylaxis
Heparin GTT
CODE STATUS full code
Anticipated Discharge: > 48 hours
Subjective/Interval History
-
Date of Service: December 11, 2024
Patient reports having right foot pain which self resolved. Was not able to sleep properly due to cough, she is orthopneic.
Objective Data
-
Labs:
Laboratory Results
12/10/24 12/11/24 12/11/24
22:00 00:20 03:39
WBC
Hgb
Hct
Plt Count
APTT > 200 H*
Sodium 133 L 133 L
Potassium 4.5 4.6
Chloride 103 102
Carbon Dioxide 13 L* 15 L
BUN 62 H 63 H
Creatinine 2.0 H 2.0 H
Glucose 207 H 192 H
Calcium 8.8 8.7
Total Bilirubin 0.9 0.9
AST 56 H 64 H
ALT 53 H 61 H
Alkaline Phosphatase 125 126
12/11/24 12/11/24
06:00 06:45
WBC Cancelled
Hgb Cancelled
Hct Cancelled
Plt Count Cancelled
APTT Pending
Sodium
Potassium
Chloride
Carbon Dioxide
BUN
Creatinine
Glucose
Calcium
Total Bilirubin
AST
ALT
Alkaline Phosphatase
Vital Signs:
Vital Signs
Temp Pulse Resp BP Pulse Ox
97.3 F 93 0 103/74 94
12/11/24 03:05 12/11/24 04:15 12/11/24 04:00 12/11/24 04:00 12/11/24 04:15
I&O
12/09/24 12/10/24 12/11/24
06:59 06:59 06:59
Intake Total 723.1 / 723.1
Balance 723.1 / 723.1
Review of Systems
-
All other systems: Reviewed and negative (Except as mentioned above)
Physical Exam
-
General: Well Developed, Well Nourished and No Apparent Distress
HEENT: Normocephalic and Atraumatic
Respiratory: Clear to Auscultation
Cardiac: Regular Rhythm, S1/S2 and Murmur
GI: Soft, Nontender, Nondistended and Normal Bowel Sounds
Skin: Dry
Neuro: Awake, Alert, Oriented and AO x 3
Psych: Calm
[2024-12-11 07:03] LABS: APTT 157.9 Sec (23.4-35.0)
[2024-12-11 07:35] LABS: % Basophils 0.5 % (0-2); % Eosinophils 0.2 % (0-6); % Immature Granulocytes 1.2 % (0-0.5); % Lymphocytes 17.4 % (20.5-51.1); % Monocytes 11.5 % (1.7-9.3); % Neutrophils 69.2 % (42.2-75.2); Absolute Basophils 0.1 10^3/uL (0-0.2); Absolute Immature Granulocytes 0.2 10^3/uL (0-0.05); Absolute Lymphocytes 2.2 10^3/uL (1.2-3.4); Absolute Monocytes 1.5 10^3/uL (0.1-0.6); Absolute Neutrophils 8.9 10^3/uL (1.4-6.5); Hematocrit 30.2 % (37.0-47.0); Hemoglobin 10.2 g/dL (12.0-16.0); Mean Corp Hgb Conc. 33.8 g/dL (33.0-37.0); Mean Corpuscular Hgb 29.7 pg (27.0-31.0); Mean Corpuscular Volume 87.8 fL (81.0-99.0); Mean Platelet Volume 10.5 fL (7.4-10.4); Nucleated Red Blood Cells % 0.9 %; Platelet Count 365 10^3/uL (130-400); Red Blood Cell Count 3.44 10^6/uL (4.20-5.40); Red Cell Dist. Width 13.5 % (11.5-14.5); White Blood Cell Count 12.9 10^3/uL (4.8-10.8)
--- NOTE | 2024-12-11 07:50 | PTCARENOTE ---
Received pt awake and alert. She appears tired. Norepinephrine 2mcg/min, Heparin currently off for PTT 157.9, to be restarted shortly. Milrinone @ 0.125mcg/kg/min. Weak peripheral pulses. Skin warm and dry. Left wrist #18g protective catheter
flushed and patent. Lungs CTA. She coughs harshly when placed supine for repositioning, that she gags. No urinary output since arrival to ICU yesterday evening. Bladder scanned for 208ml's. I informed her of my concern given her heart failure and
lack of forward flow of blood pumping from her heart to her kidneys. Again I reinforced the importance of weighing herself every day the same way and calling doctor for 2-3 pound weight gain overnight. Lungs CTA & dim in the bases. Hyperactive BSX4.
Am care given. Safe environment maintained. Will continue to monitor.
[2024-12-11] MEDS: DESENEX/MITRAZOL/ZEASORB 1 APPLIC TOPICAL ×2 (07:52→23:16)
[2024-12-11] MEDS: VIBRAMYCIN 100 MG PO (07:52)
[2024-12-11] MEDS: LEVOPHED 250 IV (07:53)
[2024-12-11] MEDS: PEPCID 40 MG IV (09:41)
[2024-12-11] MEDS: LASIX 80 MG IV (09:42)
--- NOTE | 2024-12-11 09:48 | W.PN.CD ---
Today's Communication / Plan
-
increase milrinone to 0.25, and add lasix 80mg IV x1
may need lasix drip if limited urine output
Impression / Plan
-
Cardiogenic shock
-diagnosis is a threat to life
-increase milrinone to 0.25, and add lasix 80mg IV x1
-requires monitoring of labs/tele
-may need lasix drip if limited urine output
Cardiomyopathy, new, severe
-echo 12/10: EF 20%, severe MR, decreased RV fx, severe TR, +RV thrombus
-etiology may be viral myocarditis: with viral syndrome 2-3 weeks ago
-eventual cath for ischemic eval
-no beta michelle yet
-assess for oral afterload reduction this afternoon vs tomorrow
RV thrombus:
-IV heparin, with eventual transition to eliquis once cath performed
Abnormal troponin:
-acute, non ischemic myocardial injury in setting of above
MIKI:
-trend with diuresis
Severe MR, TR, pulm HTN
-diuresis as above
CCT 35 minutes
Physical Exam
Vital Signs/Labs
Vital Signs
Temp Pulse Resp BP Pulse Ox
97.7 F 90 16 98/62 94
12/11/24 07:23 12/11/24 09:42 12/11/24 08:32 12/11/24 09:42 12/11/24 08:32
12/10/24 12/11/24 12/12/24
06:59 06:59 06:59
Actual Weight 105.8 kg
12/11/24 07:22
12/11/24 03:39
APTT 157.9 Sec (23.4-35.0) H* 12/11/24 06:38
Magnesium 2.3 mg/dl (1.6-2.3) 12/11/24 00:20
12/10/24
12:33
Mvv-Y-Jlwaakafqds Pept > 36440
LAB Results
12/10/24 12/10/24 12/11/24
12:33 22:00 03:39
Troponin I 12.500 H* 13.400 H* 11.600 H*
Physical Exam
Constitutional: No acute distress
EENT: Moist mucous membranes
Cardiovascular: Rhythm & rate is regular, Pedal edema is absent, JVD present and Systolic murmur present
Respiratory: Respiratory effort normal and Lungs clear to auscul.
Neuro/Psych: AO x 3
Data Reviewed
-
Date of Service: December 11, 2024
EKG: Other (Tele: SR PVC's)
Labs: Labs Reviewed by me
Critical Care Time (in minutes): 35
[2024-12-11 10:11] LABS: Urine Albumin 3+ (Neg - Trace); Urine Bilirubin Negative (Negative); Urine Character Clear (Clear); Urine Color Yellow; Urine Glucose 1+ (Negative); Urine Ketone Negative (Negative); Urine Leukocyte Negative (Negative); Urine Nitrite Negative (Negative); Urine Occult Blood 1+ (Negative); Urine Urobilinogen 1+ (Neg - 1+)
[2024-12-11] MEDS: HEPARIN 25000 UNITS/250 ML IV (10:53)
[2024-12-11] MEDS: PRIMACOR 20 MG 100 IV ×2 (10:56→22:11)
[2024-12-11 10:59] LABS: Urine Sodium < 5 mmol/L (30-90)
--- NOTE | 2024-12-11 10:59 | CON.INTV ---
Consultation
Consultation Request
Date/Time Consultation Requested: 12/11/2024
Date/Time Consultation Performed: 12/11/2024
Medical History
-
Chief Complaint: SOB, Cough, Fatigue, Fever
History of Present Illness:
Patient is a 74 year old female with a past medical history significant for hypertension. She reports a 2.5 week history of nonproductive cough, shortness of breath, and a fever of 100.5F. She reports no recent sick contacts, but notes traveling
back and forth to doctor's appointments with her who has had multiple surgeries. She has not noticed any chest pain or dyspnea on exertion, no lower extremity swelling. She has no prior history of heart failure or arrhythmia. She has not
noticed any palpitations, lightheadedness or dizziness. She had seen her primary care doctor for these symptoms a few days ago during which time her blood pressure was low and she was told to stop taking her blood pressure medication Losartan. She
was to be sent for CXR and Blood work but was too weak to pursue these tests and came to the ED instead.
Workup in the ED revealed cardiomyopathy with nsr, low voltage QRS on ECG, elevated troponins. Echo showed EF of 20% with severe MR/TR and a RV thrombus. Her blood pressure was in the 80/50s. She had an MIKI with lining baster of 1.7. [place] [address]403. CXR
showed BL atelectasis vs. PNA. Abd XR was unremarkable. She was put on pressors, milrinone ggt, started on ceftriaxone and doxy, and sent to the ICU.
Past Medical History
Past Medical History: HTN
Past Surgical History: Cholecystectomy and Orthopedic (R knee arthroplasty)
Social History
Tobacco: Non-smoker
Alcohol: None
Drug: None
Personal:
Living: With Family
Family History
Family History: Reviewed & Not Pertinent
Allergies / Home Medications
Allergies
Allergy/AdvReac Type Severity Reaction Status Date / Time
codeine Allergy VOMITING Verified 04/24/23 12:46
Home Medications
�Medication �Instructions �Recorded �Confirmed �Last Taken �Type
No Meds [No Current Medications] 12/10/24 12/10/24 Unknown History
Review of Systems
-
History Source: Patient
Constitutional: Fatigue
Respiratory: Cough and Trouble Breathing
Abdomen/GI: Nausea
Vitals / Labs / Diagnostic Testing
Vital Signs
Temp Pulse Resp BP Pulse Ox
97.7 F 90 18 98/62 87
12/11/24 07:23 12/11/24 09:45 12/11/24 09:30 12/11/24 09:42 12/11/24 09:51
Lab Data
12/11/24 07:22
12/11/24 03:39
Laboratory Results
12/10/24 12/10/24 12/11/24
16:59 22:00 06:38
APTT > 200 H* > 200 H* 157.9 H*
Diagnostic Testing:
Physical Exam
-
HEENT: Normocephalic and Moist Mucous Membranes
Cardiovascular: S1/S2 and Regular Rhythm
Respiratory: Clear and Non-Labored Respirations
GI: Soft, Non Distended, Non Tender and Normal Bowel Sounds
Neurology: AO x 3
Skin: Warm and Dry
General: Comfortable
Assessment
-
ASSESSMENT:
74 year old female with 2.5 weeks of cough, shortness of breath, fatigue and fever
Shock (more likely cardiogenic vs. septic)
Cardiomyopathy (viral vs. ischemic)
Acute Heart Failure with Reduced EF
RV Thrombus
MIKI (likely pre-renal)
Metabolic Acidosis
URI, likely viral
Transaminitis (likely shock related)
GERD/Nausea
PLAN:
Currently weaned off pressure support with MAPs 70-80s, will c/t monitor for MAP >65
C/w Milrinone ggt. Given 80mg IV Lasix.
Requiring 1-2L NC intermittently, worse at night with desaturation into the 80s, will wean as able.
Strict I&Os.
Eventual cath for ischemic workup given acuity and severity.
On Heparin ggt for RV Thrombus w/ eventual transition to OAC.
COVID (-), will send for Flu swab.
No leukocytosis, negative procal, severe GERD sx -- will stop Abx as suspicion for superimposed bacterial infection minimal at this time -- stop Doxy for sx of Gastritis -- C/t monitor CBC/temp curve
MIKI/Acidosis worsening, will monitor with improvement s/p lasix as CO should improve s/p diuresis -- nephro consulted for further input as patient is also oliguric/anuric with bladder scan showing 200cc
Will check VBG and CK.
Patient with transaminitis and no GI/Abd sx. Likely a consequence of shock/poor perfusion. Will c/t monitor clinically.
Will give IV pepcid for nausea as suspected related to chronic GERD sx and erosive gastritis from Doxy. Given 40mg IV now, will keep 20mg PO BID moving forward
DVT PPx: on heparin ggt
Code Status: full code
--- NOTE | 2024-12-11 11:24 | PTCARENOTE ---
Multiple labs ordered. Pt stuck several times. Phlebotomy paged x2 awaiting call back. in the room. Discussed need for central access with ICU care team.
--- NOTE | 2024-12-11 11:25 | PTCARENOTE ---
Dr. Valderrama TT's regarding no urinary output from Lasix administration @ [id number].
[2024-12-11 11:44] LABS: Urine Squamous Cell >30 /LPF (Few)
[2024-12-11 11:45] LABS: Urine Amorphous Seen; Urine Urothelial Cell >30 /LPF (FEW)
--- NOTE | 2024-12-11 11:49 | PTCARENOTE ---
s/p 80mg IVP lasix. No urinary output at this time.
[2024-12-11 11:50] LABS: Urine Bacteria Few (Negative)
[2024-12-11 12:05] LABS: Venous Blood Gas B.E. -7.8 mmol/L (-4 to +4); Venous Blood Gas HCO3 17.5 mmol/L (22-27); Venous Blood Gas pCO2 34 mmHg (35-48); Venous Blood Gas pH 7.32 (7.32-7.43); Venous Blood Gas pO2 158 mmHg (30-50)
--- NOTE | 2024-12-11 12:40 | W.CON.NEPH ---
Consultation
-
Date/Time Consultation Requested: December 11, 2024 at 12 PM
Date/Time Consultation Performed: December 2024 at 12:40 PM
Requesting Provider: Dr. Valderrama
Performing Provider: Dr. Padilla
Reason for Consultation: Acute kidney injury and cardiorenal syndrome
Medical History
-
Chief Complaint: Acute kidney injury and cardiorenal syndrome
History of Present Illness:
74-year-old female with past medical history of hypertension presented to the ER reporting cough, fever, fatigue and shortness of breath that started 2-1/2 weeks ago. Presentation in the ER EKG showed NSR with low voltage QRS. Echo showed
ejection fraction of 20% with severe MR/TR and right ventricle thrombus. Was hypotensive in 70s/50s. proBNP > 27,000, elevated lactate�2.5,
Renal consult for acute kidney injury with a creatinine of 2
Patient denies any alcohol use. She takes antihypertensive medication for many years well-controlled.
COVID-19 and flu test done earlier in the week was negative
Family was present: Her daughter and her help provide history. Patient is alert on milrinone and Levophed for blood pressure support
Past Medical History
Hypertension, IBS, obesity
Social History
Tobacco: Non-Smoker
Alcohol: None
Drug: None
Family History
No renal disease
Allergies / Home Medications
Allergy/AdvReac Type Severity Reaction Status Date / Time
codeine Allergy VOMITING Verified 04/24/23 12:46
�Medication �Instructions �Recorded �Confirmed �Type
No Meds [No Current Medications] 12/10/24 12/10/24 History
Review of Systems
-
Cough
Decreased urine output
No chest pain or shortness of breath
All other systems: Negative unless noted
Physical Exam
Vital Signs
Vital Signs
Temp Pulse Resp BP Pulse Ox
97.5 F 92 23 84/62 90
12/11/24 12:07 12/11/24 11:45 12/11/24 11:45 12/11/24 11:30 12/11/24 11:45
Lab Results
WBC 12.9 10^3/uL (4.8-10.8) H 12/11/24 07:22
RBC 3.44 10^6/uL (4.20-5.40) L 12/11/24 07:22
Hgb 10.2 g/dL (12.0-16.0) L 12/11/24 07:22
Hct 30.2 % (37.0-47.0) L 12/11/24 07:22
Plt Count 365 10^3/uL (130-400) 12/11/24 07:22
Sodium 133 mmol/L (135-145) L 12/11/24 03:39
Potassium 4.6 mmol/L (3.5-5.1) 12/11/24 03:39
Chloride 102 mmol/L (98-107) 12/11/24 03:39
Carbon Dioxide 15 mmol/L (22-30) L 12/11/24 03:39
BUN 63 mg/dl (7-17) H 12/11/24 03:39
Creatinine 2.0 mg/dL (0.6-1.0) H 12/11/24 03:39
eGFR 25.89 12/11/24 03:39
Glucose 192 mg/dl (70-99) H 12/11/24 03:39
Calcium 8.7 mg/dl (8.4-10.2) 12/11/24 03:39
Phosphorus 6.9 mg/dl (2.5-4.5) H 12/11/24 00:20
Exd-W-Hvgznizqqpm Pept > 36785 pg/ml 12/10/24 12:33
Albumin 3.9 g/dl (3.5-5.0) 12/11/24 03:39
Physical Exam
General no acute distress
HEENT no cephalic atraumatic extraocular muscle intact no scleral icterus no JVD neck supple
lungs rhonchi bilateral with fine crackle
heart regular S1-S2 positive
abdomen soft nontender positive bowel sounds
extremities no edema pulses present bilateral
Neurologically nonfocal alert and oriented x 3
Skin no lesions no abrasions no petechiae
Psych normal affect no bizarre behavior
Data Reviewed
-
Radiology: Image Personally Visualized and interpreted (Mild cephalization)
Assessment/Plan
-
74-year-old female with past medical history of hypertension presented to the ER reporting cough, Echo showed ejection fraction of 20% with severe MR/TR and right ventricle thrombus. Was hypotensive in 70s/50s. proBNP > 27,000, elevated
lactate�2.5,
Renal consult for acute kidney injury with a creatinine of 2
Patient denies any alcohol use. She takes antihypertensive medication for many years well-controlled.
COVID-19 and flu test done earlier in the week was negative
Impression.
Acute kidney injury with creatinine of 2 with admission creatinine 1.7 etiology cardiorenal syndrome as likely etiology
Hematuria 7-10 red blood cells with 3+ albumin on urinalysis
New cardiomyopathy with ejection fraction 20% severe valve disorder MR and TR with right throb
Cardiogenic shock/NSTEMI
Mild transaminitis
Recent viral infection
Hypertension history
Plan.
Inotropic support
Lasix 80 mg IV x 1 with a Lasix drip pending
Mild metabolic acidosis attributed to decreased perfusion in the setting of hypotension and elevated lactate which has improved = no indication for alkaline therapy at this time
Monitor urine output
Daily weight
Ischemic workup pending once more stable
Heparin drip
Will check protein creatinine ratio and will need follow-up on the hematuria
There is no acute need for dialysis at this time
Discussed with family at bedside including her and her daughter

35 minutes critical care time
[2024-12-11] MEDS: LASIX 50 IV (13:23)
--- NOTE | 2024-12-11 13:42 | PTCARENOTE ---
Clarified furosemide drip dose with Dr. Valderrama. He is also aware that Norepinephrine was restarted.
[2024-12-11 14:44] LABS: Creatine Phosphokinase 136 U/L (30-135)
[2024-12-11 14:48] LABS: INR 1.27; PT 16.4 Sec (11.4-14.6)
[2024-12-11 14:49] LABS: APTT 83.4 Sec (23.4-35.0)
--- NOTE | 2024-12-11 15:14 | PTCARENOTE ---
TT'd VAT regarding INR result for PICC placement.
--- NOTE | 2024-12-11 15:23 | PTCARENOTE ---
Updated regarding VAT inserting PICC soon. Explained the procedure to her and that a CXR will be obtained afterwards to verify placement.
[2024-12-11 15:26] LABS: Protein/creatinine Ratio 0.2; Urine Protein 69 mg/dl
--- NOTE | 2024-12-11 16:50 | PTCARENOTE ---
Repositioned. Awaiting official read on chest x-ray for use of left upper arm DL PICC. Bladder scanned for 301ml's. She verbalized that her is not grasping the gravity of his 's health crisis. She is afraid he will not understand
decisions for her. She requested her daughter be the primary contact.
--- NOTE | 2024-12-11 18:15 | PTCARENOTE ---
New IV tubing for all drips and now infusing via left upper arm DL PICC. 1 assist to the bedside commode after. Voided 400ml dark yellow urine. Principal Statistical Programmer in color compared to this morning.
[2024-12-11 18:40] LABS: Glucose - Point of Care 154 mg/dl (70-99)
[2024-12-11 18:51] LABS: ALT (SGPT) 57 U/L (0-35); AST (SGOT) 51 U/L (14-36); Albumin 3.2 g/dl (3.5-5.0); Alkaline Phosphatase 119 U/L (38-126); Blood Urea Nitrogen 67 mg/dl (7-17); Calcium 8.7 mg/dl (8.4-10.2); Carbon Dioxide 22 mmol/L (22-30); Chloride 100 mmol/L (98-107); Estimated Creatinine Clearance 32 ml/min; Glucose 173 mg/dl (70-99); Potassium 3.9 mmol/L (3.5-5.1); Sodium 132 mmol/L (135-145); Total Bilirubin 0.7 mg/dl (0.2-1.3); Total Protein 5.8 g/dl (6.3-8.2); eGFR 27.54
--- NOTE | 2024-12-11 19:06 | PTCARENOTE ---
Pt remained in the chair at handoff. He is sleeping at this time. Mother remains right next to him.
--- NOTE | 2024-12-11 20:45 | PTCARENOTE ---
Pt received start of shift, HR SR/ST w/ PVCs on telemetry. Pt w/ run of multiple PVCs in a row at 20:24:55 - alarmed for VT. Pt asymptomatic. Denied lightheadedness/dizziness or fluttering in chest. Milrinone, heparin, levo, and lasix infusing as
ordered. Reinforced heart failure education w pt.
[2024-12-11 22:06] LABS: Glucose - Point of Care 176 mg/dl (70-99)
[2024-12-11 23:40] LABS: APTT 44.6 Sec (23.4-35.0)
[2024-12-12] VITALS (35 sets, daily range): BP systolic 75–127; BP diastolic 40–106; BMI 39.0
[2024-12-12] MEDS: HEPARIN 8400 UNITS IV
--- NOTE | 2024-12-12 01:09 | PTCARENOTE ---
Pt ambulated to bedside commode, voided moderate amount yellow urine. No further change in assessment
[2024-12-12] MEDS: LASIX 50 IV ×2 (02:12→21:06)
[2024-12-12 04:45] LABS: % Basophils 0.4 % (0-2); % Eosinophils 0.9 % (0-6); % Immature Granulocytes 1.3 % (0-0.5); % Monocytes 9.9 % (1.7-9.3); % Neutrophils 72.5 % (42.2-75.2); Absolute Basophils 0.1 10^3/uL (0-0.2); Absolute Eosinophils 0.1 10^3/uL (0-0.7); Absolute Immature Granulocytes 0.2 10^3/uL (0-0.05); Absolute Monocytes 1.3 10^3/uL (0.1-0.6); Absolute Neutrophils 9.8 10^3/uL (1.4-6.5); Hematocrit 29.8 % (37.0-47.0); Hemoglobin 9.9 g/dL (12.0-16.0); Mean Corp Hgb Conc. 33.2 g/dL (33.0-37.0); Mean Corpuscular Hgb 29.9 pg (27.0-31.0); Mean Platelet Volume 10.8 fL (7.4-10.4); Platelet Count 359 10^3/uL (130-400); Red Blood Cell Count 3.31 10^6/uL (4.20-5.40); Red Cell Dist. Width 13.8 % (11.5-14.5); White Blood Cell Count 13.5 10^3/uL (4.8-10.8)
[2024-12-12] MEDS: HEPARIN 25000 UNITS/250 ML IV (05:00)
[2024-12-12 05:17] LABS: ALT (SGPT) 55 U/L (0-35); AST (SGOT) 45 U/L (14-36); Albumin 3.5 g/dl (3.5-5.0); Alkaline Phosphatase 117 U/L (38-126); Blood Urea Nitrogen 66 mg/dl (7-17); Calcium 8.2 mg/dl (8.4-10.2); Carbon Dioxide 22 mmol/L (22-30); Chloride 98 mmol/L (98-107); Estimated Creatinine Clearance 30 ml/min; Glucose 222 mg/dl (70-99); Magnesium 2.1 mg/dl (1.6-2.3); Phosphorus 4.8 mg/dl (2.5-4.5); Potassium 3.5 mmol/L (3.5-5.1); Sodium 130 mmol/L (135-145); Total Bilirubin 0.7 mg/dl (0.2-1.3); Total Protein 6.2 g/dl (6.3-8.2); eGFR 25.89
--- NOTE | 2024-12-12 06:39 | PTCARENOTE ---
Pt w/ c/o nausea, pain in belly. States this is how she felt when she first came to ED. EKG completed. Pt then stated she does not actually have to have a BM at this time, but it feels like her bowels are hyperactive. Pt just on commode with loose
stool and x1 episode of small amount incontinence bowels prior. light brown. warm compress provided for belly. Pt states repositioning helps a little.
--- NOTE | 2024-12-12 06:57 | W.PN.HOSP.TC ---
Addendum entered and electronically signed by Garo Cole MD 12/12/24 19:35:
Attending Addendum-
I saw and evaluated the patient. I reviewed the resident�s note and agree with findings and plan as documented in the resident�s note. Sub: Feels fatigued and nauseous with episode of vomiting. Complains of mild generalized abd pain. Urinating more
frequently.. Denies CP, palps, SOB fatigue, swelling in LE. Seen with . Full 12 point ROS reviewed and negative except as documented Exam- vitals reviewed in EMR GEN-NAD Heart RRR 10/09 SM @ apex lungs CTA B/L abd obese soft mild ttp
epigastric area ND pos BS LE no edema
Plan:
# Cardiogenic Shock/New Onset Cardiomyopathy
- cont care in ICU
- fulminant myocarditis-autoimmune vs post viral?
- Covid-neg
- stat echo done in ED-
Left ventricle is mildly dilated. Severely reduced left ventricular systolic function. Left ventricular ejection fraction is 20%.
Severe mitral regurgitation.
Severe tricuspid regurgitation.
Echodensity seen in right ventricular apex, measuring 2.0 x 1.1 cm. Suspected thrombus.
- titrate milrinone and levophed for MAP > 65
- cards c/s- appreciate input
- strict I and O fluid strict daily weights
- cont lasix gtt
- add metolazone
- eventual cath
# RV thrombus
- underlying PE vs hypercoag state?
- patient with h/o COVID in 2022, now covid neg
- check CT PE study when MIKI resolves
- cont heparin gtt follow aptt closely
# Hyperglycemia
- lantus started
- hba1c 6.4
# Leukocytosis
- inflammatory etiology vs infectious - procal neg
- increasing
- cont to trend
# NIMI
- likely from myocarditis
- peaked @ 13
- cont to monitor closely
- eventual cath
# Hyponatremia
- likely hypervolemic
- cont lasix gtt add metolazone
- CTM
# Metabolic Acidosis
- resolved
- CTM
# Hyperphosphatemia
- from MIKI - improved
- CTM
# Transaminitis
- mild
- trend
# MIKI
- worsening
- cardiorenal
- nephro on board
- monitor UO closely check UA P/C ratio
- cont aggressive diuresis
- patient is amenable to HD if required
# Hyperkalemia
- from MIKI
- resolved
- CTM
# HTN- hold losartan
# H/O Hypothyroidism- per patient 'resolved' - TSH WNL
DVTp- heparin gtt
CODE- FULL
CC Note
Due to a high probability of clinically significant, life-threatening deterioration, the patient required a high level of preparedness to intervene emergently. I personally spent this critical care time directly and personally managing the patient.
This critical care time included obtaining a history; examining the patient; ordering and review of studies and STAT labs; arranging urgent treatment with development of a management plan; evaluation of patient's response to treatment; reassessment;
and, discussions with other providers.
This critical care time was performed to assess and manage the high probability of imminent, life-threatening deterioration that could result in multi-organ failure. It was exclusive of separately billable procedures and treating other patients and
teaching time.
Total critical care time: Approximately 36 minutes
Original Note:
Today's Communication/Plan
-
.
Assessment / Plan
Assessment / Plan
Assessment
74-year-old female with history of hypertension admitted to ICU in critically ill condition for the management of cardiogenic shock
Plan
1. Cardiogenic shock
HFrEF secondary to myocarditis (recent viral infection)
COVID-negative
Patient on Levophed 2, milrinone 0.125
Continue Levophed, milrinone with MAP >65
Wean off of Levophed, would start hydralazine (MIKI) for afterload reduction
Echo�ejection fraction 20%, right ventricular thrombus
Eventual left heart catheterization for ischemic evaluation
If patient is stable, CT chest PE study
Cardiology on board
Strict I/os, daily weights
BNP> 27,000
Trend trops
Eventually will start GDMT, cannot give a beta-michelle.
2. Right ventricular thrombus
Continue heparin GTT
Transition to Eliquis after cath
Patient in MIKI
3. MIKI
No known kidney injury from labs on 10/15/2023
Baseline serum creatinine at 0.9.
Serum creatinine today at 2.0, BUN at 66
Likely prerenal.
trend serum creatinine.
Mild metabolic acidosis
Patient diuresing well with IV Lasix
Losartan on hold
4. Transaminitis
Trending up
Monitor for now
Likely from hepatic congestion
5. History of hypothyroidism
TSH�2.81
DVT prophylaxis
Heparin GTT
CODE STATUS full code
Anticipated Discharge: > 48 hours
Subjective/Interval History
-
Date of Service: December 12, 2024
Patient reports having some nausea, cramping the abdomen. Cough is improved
Objective Data
-
Labs:
Laboratory Results
12/11/24 12/12/24 12/12/24
23:21 04:33 06:53
WBC 13.5 H
Hgb 9.9 L
Hct 29.8 L
Plt Count 359
APTT 44.6 H Pending
Sodium 130 L
Potassium 3.5
Chloride 98
Carbon Dioxide 22
BUN 66 H
Creatinine 2.0 H
Glucose 222 H
Calcium 8.2 L
Total Bilirubin 0.7
AST 45 H
ALT 55 H
Alkaline Phosphatase 117
Vital Signs:
Vital Signs
Temp Pulse Resp BP Pulse Ox
97.7 F 101 24 99/64 96
12/12/24 03:12 12/12/24 06:30 12/12/24 06:30 12/12/24 06:00 12/11/24 19:32
I&O
12/10/24 12/11/24 12/12/24
06:59 06:59 06:59
Intake Total 783.4 / 809.8 1021.1 / 1021.1
Output Total 950 / 950
Balance 783.4 / 809.8 71.1 / 71.1
Review of Systems
-
All other systems: Reviewed and negative (Except as mentioned above)
Physical Exam
-
General: Well Developed, Well Nourished and No Apparent Distress
HEENT: Normocephalic, Atraumatic and Oxygen (On 2 L nasal cannula)
Respiratory: Clear to Auscultation and Other
Cardiac: Regular Rhythm, S1/S2 and Murmur
GI: Soft, Normal Bowel Sounds and Tender
Musculoskeletal: Other (No pedal edema)
Skin: Warm and Dry
Neuro: Awake, Alert, Oriented and AO x 3
[2024-12-12 07:20] LABS: APTT 182.7 Sec (23.4-35.0)
[2024-12-12 08:08] LABS: Glucose - Point of Care 183 mg/dl (70-99)
--- NOTE | 2024-12-12 08:44 | W.PN.CD ---
Today's Communication / Plan
-
continue milrinone 0.25, and lasix drip at 20mg/hr
starting to make urine
Impression / Plan
-
Cardiogenic shock
-diagnosis is a threat to life
-continue milrinone 0.25, and lasix drip at 20mg/hr
-requires monitoring of labs/tele
Cardiomyopathy, new, severe
-echo 12/10: EF 20%, severe MR, decreased RV fx, severe TR, +RV thrombus
-etiology may be viral myocarditis: with viral syndrome 2-3 weeks ago
-eventual cath for ischemic eval
-no beta michelle yet
-assess for oral afterload reduction once off of levophed
-will start with hydralazine given MIKI
RV thrombus:
-IV heparin, with eventual transition to eliquis once cath performed
Abnormal troponin:
-acute, non ischemic myocardial injury in setting of above
MIKI:
-trend with diuresis
Severe MR, TR, pulm HTN
-diuresis as above
CCT 30 minutes
Physical Exam
Vital Signs/Labs
Vital Signs
Temp Pulse Resp BP Pulse Ox
97.5 F 101 24 99/64 96
12/12/24 08:02 12/12/24 06:30 12/12/24 06:30 12/12/24 06:00 12/11/24 19:32
12/11/24 12/12/24 12/13/24
06:59 06:59 06:59
Actual Weight 105.8 kg 106.4 kg
12/12/24 04:33
12/12/24 04:33
PT 16.4 Sec (11.4-14.6) H 12/11/24 14:12
INR 1.27 12/11/24 14:12
APTT 182.7 Sec (23.4-35.0) H* 12/12/24 06:53
Magnesium 2.1 mg/dl (1.6-2.3) 12/12/24 04:33
12/10/24
12:33
Yfh-U-Ubpssebwvgk Pept > 02821
LAB Results
12/10/24 12/10/24 12/11/24
12:33 22:00 03:39
Troponin I 12.500 H* 13.400 H* 11.600 H*
Physical Exam
Constitutional: No acute distress
EENT: Moist mucous membranes
Cardiovascular: Rhythm & rate is regular, Pedal edema is absent, Pedal edema present and JVD present
Neuro/Psych: AO x 3
Data Reviewed
-
Date of Service: December 12, 2024
EKG: Other (Tele: SR, PVC's)
Labs: Labs Reviewed by me
Critical Care Time (in minutes): 30
[2024-12-12] MEDS: NOVOLOG FLEXPEN-LOW RESISTANCE 1 UNITS SC ×2 (08:55→13:15)
[2024-12-12] MEDS: PEPCID 20 MG PO (09:00)
[2024-12-12] MEDS: DESENEX/MITRAZOL/ZEASORB 1 APPLIC TOPICAL ×2 (09:00→20:57)
[2024-12-12] MEDS: KCL 40 MEQ PO (09:25)
--- NOTE | 2024-12-12 09:30 | PTCARENOTE ---
Complete assessment done and documented. Pt received oriented x3, pleasant. Pt received with Levophed, milrinon, lasix, and heparin drip infusing via L upper arm PICC. Levophed drip was weaned to off over the last 2 hrs, keeping map > 60. Pt was
seen by Dr Valderrama and Dr Galindo.
[2024-12-12] MEDS: PRIMACOR 20 MG 100 IV ×2 (09:37→22:05)
--- NOTE | 2024-12-12 10:59 | W.PN.NEPH.PH ---
Today's Communication / Plan
-
Continue diuresing
Assessment/Plan
-
74-year-old female with past medical history of hypertension presented to the ER reporting cough, Echo showed ejection fraction of 20% with severe MR/TR and right ventricle thrombus. Was hypotensive in 70s/50s. proBNP > 27,000, elevated
lactate�2.5,
Renal consult for acute kidney injury with a creatinine of 2
Patient denies any alcohol use. She takes antihypertensive medication for many years well-controlled.
COVID-19 and flu test done earlier in the week was negative
Impression.
Acute kidney injury with creatinine of 2 with admission creatinine 1.7 etiology cardiorenal syndrome as likely etiology
Hematuria 7-10 red blood cells with 3+ albumin on urinalysis
New cardiomyopathy with ejection fraction 20% severe valve disorder MR and TR with right throb
Cardiogenic shock/NSTEMI
Mild transaminitis
Recent viral infection
Hypertension history
Plan.
Inotropic support
Mild metabolic acidosis improved with improved blood pressures
Monitor urine output
Daily weight
Ischemic workup pending once more stable
Heparin drip
Protein creatinine ratio 0.2
There is no acute need for dialysis at this time
Discussed with family at bedside including her and her daughter
Creatinine remains at 2 with improved urine output
Continue milrinone and Bumex drip with addition of Levophed

35 minutes critical care time
-
-
Date of Service: December 12, 2024
CC / HPI / ROS
-
Chief Complaint:
Presents with cough
History of Present Illness:
Presents with cough increased weight and acute cardiomyopathy acute kidney injury
Review of Systems:.
No chest pain or shortness of breath
Nonoliguric
Labs
-
Labs:
WBC 13.5 10^3/uL (4.8-10.8) H 12/12/24 04:33
RBC 3.31 10^6/uL (4.20-5.40) L 12/12/24 04:33
Hgb 9.9 g/dL (12.0-16.0) L 12/12/24 04:33
Hct 29.8 % (37.0-47.0) L 12/12/24 04:33
Plt Count 359 10^3/uL (130-400) 12/12/24 04:33
eGFR 25.89 12/12/24 04:33
Phosphorus 4.8 mg/dl (2.5-4.5) H 12/12/24 04:33
Vpl-I-Ukqfpbgnvld Pept > 15282 pg/ml 12/10/24 12:33
Albumin 3.5 g/dl (3.5-5.0) 12/12/24 04:33
Physical Exam
-
Vital Signs:
Vital Signs
Temp Pulse Resp BP Pulse Ox
97.5 F 101 24 99/64 96
12/12/24 08:02 12/12/24 06:30 12/12/24 06:30 12/12/24 06:00 12/11/24 19:32
Respiratory:: Bilateral: Rales
Lung Excursion:: Normal
Abdomen:: Soft
Bowel Sounds:: Normal
Extremity Edema:: None: Bilateral:
Gacria Catheter: No
--- NOTE | 2024-12-12 11:50 | W.PN.INTV ---
Today's Communication / Plan
Recommendations
1 dose metolazone, trend IOs, repeat bmp qpm
add 10U lantus qhs
increase to MDISS
Assessment
-
ASSESSMENT:
74 year old female with 2.5 weeks of cough, shortness of breath, fatigue and fever
Shock (more likely cardiogenic vs. septic)
Cardiomyopathy (viral vs. ischemic)
Acute Heart Failure with Reduced EF
RV Thrombus
MIKI (likely pre-renal)
Metabolic Acidosis
URI, likely viral
Transaminitis (likely shock related)
GERD/Nausea
PLAN:
Requiring minimal intermittent pressure support, will c/t wean as able
C/w Milrinone ggt
C/w Lasix ggt. Monitor and replete K prn
Requiring 1-2L NC intermittently, worse at night with desaturation into the 80s, will wean as able.
Strict I&Os -- still oliguric with ~500cc overnight and no improvement in data collection interviewer. Repeat CXR today showing mild improvement compared to yesterday. Will give one dose of metolazone and observe output w/ repeat bmp in afternoon today
Eventual cath for ischemic workup for cardiomyopathy, pending medical stabilization
On Heparin ggt for RV Thrombus w/ eventual transition to OAC. no signs of active bleeding, hgb/plts stable.
COVID (-), Flu swab negative. Blood Cultures NGTD. Concern for superimposed bacterial PNA is low. No immediate need for abx at this time. C/t monitor CBC/temp curve
MIKI/Acidosis -- nephro consulted, no immediate need for HD -- advised to c/w diuresis
Will add 10U Lantus qhs and switch to MDISS. Pending A1C%
Patient with transaminitis and no GI/Abd sx. Likely a consequence of shock/poor perfusion. Will c/t monitor clinically.
C/w PO Pepcid for GERD sx
DVT PPx: on heparin ggt
Code Status: full code
Subjective Dataa
Subjective Data
Date of Service:
Date of Service: December 12, 2024
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
Subjective:
Patient feels well this morning. No acute complaints and no acute overnight events.
Review of Systems
Cardiopulmonary: Dyspnea
GI: Nausea
Objective Data
Data Reviewed
Vital Signs / I&O / Oxygen:
Vital Signs
Temp Pulse Resp BP Pulse Ox
97.5 F 101 24 99/64 96
12/12/24 08:02 12/12/24 06:30 12/12/24 06:30 12/12/24 06:00 12/11/24 19:32
Intake and Output
12/11/24 12/12/24 12/13/24
06:59 06:59 06:59
Intake Total 783.4 / 809.8 1261.1 / 1261.1
Output Total 950 / 950
Balance 783.4 / 809.8 311.1 / 311.1
SaO2 96
Nasal Cannula flow liters per 2
minute
Physical Exam
General: Comfortable and Good Appetite
HEENT: Normocephalic, Anicteric and Moist Mucous Membranes
Cardiovascular: S1-S2 and Irregular Rhythm
Respiratory: Clear and Non-Labored Respirations
GI: Soft, Non Distended, Non Tender and Normal Bowel Sounds
Neurology: AO x 3
Skin: Warm and Dry
Labs/Micro/Reports
Lab Data
12/12/24 04:33
Laboratory Results
12/11/24 12/11/24 12/12/24
14:12 23:21 06:53
PT 16.4 H
INR 1.27
APTT 83.4 H 44.6 H 182.7 H*
Microbiology
12/11/24 10:52 Nasal Swab Influenza Types A & B (TABITHA) - Final
Negative for Influenza A & B, NAAT
Negative results must be combined with clinical observations
and patient history.
Nucleic Acid Amplification test (NAAT)performed on the
[employer] platform.
[2024-12-12] MEDS: ZAROXOLYN 5 MG PO (12:31)
[2024-12-12 13:25] LABS: Glucose - Point of Care 172 mg/dl (70-99)
--- NOTE | 2024-12-12 13:45 | PTCARENOTE ---
Pt OOB to chair for 3 hrs and tolerating well. Pt assisted to commode and voided 200 ml of dark yellow urine. Urine sent for protein/creat ratio.
[2024-12-12 14:30] LABS: Glycohemoglobin (HgbA1c) 6.4 % (4.0-5.6)
[2024-12-12 14:35] LABS: Urine Protein 27 mg/dl
[2024-12-12 14:41] LABS: Protein/creatinine Ratio 0.2
[2024-12-12 15:18] LABS: INR 1.15
[2024-12-12 15:19] LABS: APTT 49.2 Sec (23.4-35.0)
--- NOTE | 2024-12-12 16:30 | PTCARENOTE ---
Pt's last PTT was low at 49.2, b/c of pt's extreme high and low PTT levels, pharmacy and Dr Valderrama discussed change in this one time PTT/heparin treatment. PT was given bolus of 4200 units insulin, and heparin drip increased 200 units instead of 400
units/hr. Heparin drip increased to 1500 units/hr, and will recheck PTT level at [address] Galindo. Pt also assisted to bed side commode, and voided 400 ml of yellow urine and had a mod brown BM. Pt now eating dinner back in bed. Pt also remains
on lasix and milrinone iv drip.
[2024-12-12] MEDS: HEPARIN 4200 UNITS IV (16:38)
--- NOTE | 2024-12-12 16:38 | CM ---
Angelika lives with her in a 2 story home with 2 entry steps. She has a first floor set up at home, has been (I) amb and adls,no DME, drives locally.
Plan: CM to follow to coordinate all identified needs for safe discharge to home pending improvement in PT. Home care services are suggested.
[2024-12-12 17:18] LABS: Glucose - Point of Care 189 mg/dl (70-99)
[2024-12-12] MEDS: NOVOLOG FLEXPEN-MODERATE RESISTANCE 1 UNITS SC (17:36)
[2024-12-12 17:59] LABS: Blood Urea Nitrogen 72 mg/dl (7-17); Calcium 8.5 mg/dl (8.4-10.2); Carbon Dioxide 22 mmol/L (22-30); Chloride 98 mmol/L (98-107); Estimated Creatinine Clearance 30 ml/min; Glucose 202 mg/dl (70-99); Potassium 3.9 mmol/L (3.5-5.1); Sodium 132 mmol/L (135-145); eGFR 25.89
--- NOTE | 2024-12-12 20:00 | PTCARENOTE ---
Pt Aox3, VSS, c/o neck pain, requested Tylenol. NSR with multiple monomorphic PVcs. Positive pulses, no edema. Patient remains on milrinone, Heparin and Lasix gtt. Lungs diminished on 2L NC. oob to commode, rings appropriately.
[2024-12-12] MEDS: TYLENOL 650 MG PO (20:57)
[2024-12-12] MEDS: LANTUS 0.1 UNITS SC (22:09)
[2024-12-12 22:19] LABS: Glucose - Point of Care 184 mg/dl (70-99)
--- NOTE | 2024-12-12 23:50 | PTCARENOTE ---
Ptt and 1st set of blood cultures obtained.
[2024-12-13] VITALS (34 sets, daily range): BP systolic 72–113; BP diastolic 46–82; BMI 39.1
[2024-12-13] MEDS: DILAUDID 0.5 MG IV (00:15)
[2024-12-13 00:16] LABS: APTT 139.7 Sec (23.4-35.0)
[2024-12-13] MEDS: HEPARIN 25000 UNITS/250 ML IV ×2 (02:11→23:35)
[2024-12-13 04:22] LABS: % Basophils 0.4 % (0-2); % Eosinophils 0.8 % (0-6); % Immature Granulocytes 1.9 % (0-0.5); % Monocytes 10.4 % (1.7-9.3); % Neutrophils 68.5 % (42.2-75.2); Absolute Eosinophils 0.1 10^3/uL (0-0.7); Absolute Immature Granulocytes 0.2 10^3/uL (0-0.05); Absolute Lymphocytes 1.9 10^3/uL (1.2-3.4); Absolute Monocytes 1.1 10^3/uL (0.1-0.6); Absolute Neutrophils 7.4 10^3/uL (1.4-6.5); Hematocrit 28.4 % (37.0-47.0); Hemoglobin 9.6 g/dL (12.0-16.0); Mean Corp Hgb Conc. 33.8 g/dL (33.0-37.0); Mean Corpuscular Hgb 30.6 pg (27.0-31.0); Mean Corpuscular Volume 90.4 fL (81.0-99.0); Mean Platelet Volume 10.5 fL (7.4-10.4); Nucleated Red Blood Cells % 1.1 %; Platelet Count 309 10^3/uL (130-400); Red Blood Cell Count 3.14 10^6/uL (4.20-5.40); Red Cell Dist. Width 14.1 % (11.5-14.5); White Blood Cell Count 10.8 10^3/uL (4.8-10.8)
[2024-12-13 05:24] LABS: ALT (SGPT) 45 U/L (0-35); AST (SGOT) 38 U/L (14-36); Albumin 3.1 g/dl (3.5-5.0); Alkaline Phosphatase 86 U/L (38-126); Blood Urea Nitrogen 65 mg/dl (7-17); Calcium 7.8 mg/dl (8.4-10.2); Carbon Dioxide 17 mmol/L (22-30); Chloride 107 mmol/L (98-107); Estimated Creatinine Clearance 32 ml/min; Glucose 147 mg/dl (70-99); Magnesium 2.2 mg/dl (1.6-2.3); Potassium 3.6 mmol/L (3.5-5.1); Sodium 134 mmol/L (135-145); Total Bilirubin 0.5 mg/dl (0.2-1.3); Total Protein 5.2 g/dl (6.3-8.2); eGFR 27.54
--- NOTE | 2024-12-13 06:14 | PTCARENOTE ---
Pt c/o 03/15 pain in neck PRN Tylenol did not help much. One time dose Dilaudid given with relief of neck pain. patient slept through the night, bp on the soft side, maintained a MAP of 60 for the most part.
[2024-12-13 07:58] LABS: APTT > 200 Sec (23.4-35.0)
[2024-12-13 08:21] LABS: Glucose - Point of Care 164 mg/dl (70-99)
[2024-12-13] MEDS: NOVOLOG FLEXPEN-MODERATE RESISTANCE 1 UNITS SC (08:26)
[2024-12-13] MEDS: DESENEX/MITRAZOL/ZEASORB 1 APPLIC TOPICAL ×2 (08:28→19:36)
[2024-12-13] MEDS: PEPCID 20 MG PO (08:30)
[2024-12-13 08:38] LABS: APTT 45.6 Sec (23.4-35.0)
--- NOTE | 2024-12-13 08:52 | W.PN.INTV ---
Today's Communication / Plan
Recommendations
- Metolazone 5 mg repeat
- Labs in AM
Assessment
-
Patient is a very pleasant 74-year-old female who presents after cough, flulike symptoms that started about 2 weeks ago. She also had low-grade fever and presented to the ER with increasing fatigue and shortness of breath. Workup in the emergency
room showed elevated troponin, significantly elevated BNP and a low voltage EKG. Stat echocardiogram showed reduced biventricular systolic function and patient was noted to be in cardiogenic shock. She was started on milrinone infusion. RV
thrombus was also noted and heparin drip was also started. She was admitted to the ICU for further management and unit assembler consultation was requested.
12/13. Patient is afebrile.. MAP around 65. Saturating 96% on 4 L supplemental oxygen.
Current infusions. Heparin drip, Lasix 20 mg/h, milrinone at 0.25.
Fluid balance, +595 mL. Patient made 800 mL of urine last 24 hours.
#1. Shock, cardiogenic. Biventricular severe dilation, LVEF 20%. Severe mitral regurgitation as well as severe tricuspid regurgitation with RV thrombus.
- ?Viral myocarditis. Low voltage EKG noted. No changes of pericarditis noted. No pleuritic discomfort or chest pain reported
- Cardiology service on case. Patient currently on milrinone infusion, earlier required Levophed, currently off Levophed
- Minimal response to IV Lasix 80 mg, now transitioned to Lasix infusion, still oliguric. Give another dose of metolazone 5 mg p.o.
- Levophed as needed to keep MAP above 65
- Monitor electrolytes closely
#2. RV thrombus. Suspect this is in the setting of severe biventricular dilation and resultant stasis.
- Patient has been started on heparin infusion.
#3. Acute kidney injury with hyperkalemia and metabolic acidosis. Suspect this is related to cardiogenic shock and decreased cardiac output.
- Creatinine at 1.9 this morning, continues to be oligouric
- Avoid hypotension, keep MAP above 65
- Urine sodium less than 5, consistent with severe decrease in renal perfusion with underlying cardiogenic shock.
- Nephrology consultation
- Strict input/output, Lasix infusion currently, give another dose of metolazone 5 mg.
- Lactate minimally elevated, likely reflective of poor perfusion in the setting of cardiogenic shock. Follow-up lactate improved from 2.8 earlier to most recently 1.7
#4. Mildly abnormal LFTs. Suspect this is related to cardiogenic shock and probably hepatic congestion. Lactate minimally elevated.
#5. Cough with recent URI symptoms. X-ray is not suggestive of lebron consolidation or pneumonia.
- Procalcitonin unremarkable, monitor off antibiotics
- Continue volume management with aggressive diuresis
- No cough or dyspnea reported this morning, comfortably lying in bed without orthopnea
#6. DM with hyperglycemia.
- Continue Lantus 10 units nightly.
- SSI in addition
DVT prophylaxis: On heparin infusion
GERD symptoms. On Pepcid.
Critical Care time 45 mins -- The patient is admitted for acute critical illness for the treatment of vital organ failure and/or prevention of further life-threatening conditions. Total care includes time spent in review of history, physical exam,
medications, hemodynamic/ventilator parameters, laboratory data, imaging and discussion with house staff, pharmacy, respiratory therapy, voice teacher, and nursing.
Subjective Dataa
Subjective Data
Date of Service:
Date of Service: December 13, 2024
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
Subjective:
Patient comfortably lying in bed in no acute distress.
Review of Systems
Genitourinary: Other (All 14 systems reviewed and negative except as stated above in the history of present illness.)
Objective Data
Data Reviewed
Vital Signs / I&O / Oxygen:
Vital Signs
Temp Pulse Resp BP Pulse Ox
97.5 F 92 20 92/53 92
12/13/24 07:00 12/13/24 07:00 12/13/24 07:00 12/13/24 07:00 12/13/24 07:00
Intake and Output
12/12/24 12/13/24 12/14/24
06:59 06:59 06:59
Intake Total 1261.1 / 1294.5 1523.4 / 1523.4
Output Total 950 / 950 800 / 800
Balance 311.1 / 344.5 723.4 / 723.4
SaO2 92
Nasal Cannula flow liters per 2
minute
Physical Exam
General: Comfortable and Good Appetite
HEENT: Normocephalic, Anicteric and Moist Mucous Membranes
Cardiovascular: S1-S2 and Irregular Rhythm
Respiratory: Clear and Non-Labored Respirations
GI: Soft, Non Distended, Non Tender and Normal Bowel Sounds
Neurology: AO x 3
Skin: Warm and Dry
Labs/Micro/Reports
Lab Data
12/13/24 04:13
12/13/24 04:13
Laboratory Results
12/12/24 12/12/24 12/13/24
14:58 23:53 07:10
PT 15.0 H
INR 1.15
APTT 49.2 H 139.7 H > 200 H*
12/13/24
08:16
PT
INR
APTT 45.6 H
Microbiology
12/11/24 14:02 Blood/Venous Blood Culture - Preliminary
No Growth in 24 hours- Final report to follow
12/11/24 14:13 Blood/Venous Blood Culture - Preliminary
No Growth in 24 hours- Final report to follow
12/11/24 10:52 Nasal Swab Influenza Types A & B (TABITHA) - Final
Negative for Influenza A & B, NAAT
Negative results must be combined with clinical observations
and patient history.
Nucleic Acid Amplification test (NAAT)performed on the
[employer] platform.
[2024-12-13] MEDS: HEPARIN 8400 UNITS IV (09:00)
--- NOTE | 2024-12-13 09:00 | PTCARENOTE ---
Complete assessment done and documented in electronic chart. Pt states that she slept well last night. PTT was drawn at the end of the previous shift, results >200, PTT redrawn =45.6, Dr Galindo aware and heparin protocol followed, bolus given and
heparin drip was increased to 1600 units/hr. Will recheck PTT in 6 hrs.
[2024-12-13] MEDS: ZAROXOLYN 5 MG PO (09:50)
--- NOTE | 2024-12-13 11:01 | W.PN.CD ---
Today's Communication / Plan
-
continue milrinone 0.25, and lasix drip at 20mg/hr
add hydralazine 10mg tid for oral afterload reduction: if tolerates, will titrate, and start weaning off of milrinone
Impression / Plan
-
Cardiogenic shock
-diagnosis is a threat to life
-continue milrinone 0.25, and lasix drip at 20mg/hr
-requires monitoring of labs/tele
-assess for oral afterload reduction once off of levophed: off since 12/12
-add hydralazine 10mg tid: if tolerates, will titrate, and start weaning off of milrinone
Cardiomyopathy, new, severe
-echo 12/10: EF 20%, severe MR, decreased RV fx, severe TR, +RV thrombus
-etiology may be viral myocarditis: with viral syndrome 2-3 weeks ago
-eventual cath for ischemic eval
-no beta michelle yet
RV thrombus:
-IV heparin, with eventual transition to eliquis once cath performed
Abnormal troponin:
-acute, non ischemic myocardial injury in setting of above
MIKI:
-trend with diuresis
Severe MR, TR, pulm HTN
-diuresis as above
CCT 35 minutes
Physical Exam
Vital Signs/Labs
Vital Signs
Temp Pulse Resp BP Pulse Ox
97.5 F 90 18 97/64 94
12/13/24 07:00 12/13/24 10:45 12/13/24 10:45 12/13/24 10:22 12/13/24 10:58
12/12/24 12/13/24 12/14/24
06:59 06:59 06:59
Actual Weight 106.4 kg 106.5 kg
12/13/24 04:13
PT 15.0 Sec (11.4-14.6) H 12/12/24 14:58
INR 1.15 12/12/24 14:58
APTT 45.6 Sec (23.4-35.0) H 12/13/24 08:16
Magnesium 2.2 mg/dl (1.6-2.3) 12/13/24 04:13
12/10/24
12:33
Bve-Z-Oknxtgwdgzs Pept > 86183
LAB Results
12/10/24 12/10/24 12/11/24
12:33 22:00 03:39
Troponin I 12.500 H* 13.400 H* 11.600 H*
Physical Exam
Constitutional: No acute distress
EENT: Moist mucous membranes
Cardiovascular: Rhythm & rate is regular, Pedal edema is absent, JVD present and Systolic murmur present
Respiratory: Respiratory effort normal and Lungs clear to auscul.
Neuro/Psych: AO x 3
Data Reviewed
-
Date of Service: December 13, 2024
EKG: Other (Tele: SR, frequent ventricular ectopy)
Labs: Labs Reviewed by me
Critical Care Time (in minutes): 35
--- NOTE | 2024-12-13 11:17 | PTCARENOTE ---
Dr Valderrama in to see pt, aware of pt's BPs, running at times 80s systolically, which is good with Dr Valderrama, as long as pt's MAP is 60 or >. Pt also remains on lasix, milrinone iv drips. Pt brushed teeth and finishing breakfast. Family visiting.
--- NOTE | 2024-12-13 11:28 | PTCARENOTE ---
Dr Fernando in to see pt and updated. Lasix drip now increased to 30 mg/hr as per Dr Fernando.
[2024-12-13] MEDS: APRESOLINE 10 MG PO ×3 (11:35→22:10)
--- NOTE | 2024-12-13 11:54 | W.PN.HOSP.TC ---
Today's Communication/Plan
-
Continue milrinone and Lasix
Agree with hydralazine
Continue IV heparin
Plan for repeat TTE
Trend BMP and weights
Assessment / Plan
Assessment / Plan
#Cardiogenic shock
#Acute biventricular heart failure
#New onset cardiomyopathy with reduced LVEF
#Type I cardiorenal syndrome with MIKI
- Differential diagnoses include viral myocarditis versus ischemic disease; no signs of infiltrative disease, recent viral infection
- Echocardiogram here showed LVEF 20% with severely reduced RV systolic function, RV thrombus seen
- Has been started on milrinone drip, Lasix drip with as needed metolazone; status post Levophed
- I's/O's and weights are fairly stable, renal function also currently plateaued
- Cardiology following, added hydralazine for afterload reduction
- Unable to place RHC/Alexander-Colten due to RV thrombus and risk for dislodgment
Plan
- Continue with IV Lasix drip and milrinone drip
- Continue hydralazine for afterload reduction, uptitrate as needed
- Hold antihypertensives and negative inotropic agents; wean milrinone as tolerated
- Monitor on telemetry for arrhythmias and ectopy from milrinone
- Monitor strict I's/O's, daily weights, BMP
- Check coxsackie A and B viral serology
#RV echodensity concerning for thrombus
- Seen on echocardiogram, unclear if this is clot in transit versus RV fixed thrombi w/ low flow state
- No known underlying hypercoagulable diseases or known cancer history, has not had clots before
- Has not had significant hypoxemia, low concern for transit causing PE at this time
- Was started on heparin drip upon arrival, planning for CTA thorax PE when renal function improved
Plan
- Consider hypercoag workup (factor V Leiden, APS Abs, Protein C/S deficiency, ATIII deficiency)
- Planning to repeat echocardiogram on Narciso to reassess
- Monitor respiratory status
#Transaminitis
- Suspect related to congestive hepatopathy due to cardiogenic shock
- No known history of underlying liver disease
- Will trend LFTs, consider RUQ US and hep panel if worsening
#Prediabetes
- Hemoglobin A1c was 6.4; associated with hyperglycemia in the hospital
- Was started on Lantus 10 units nightly with ISS and Accu-Cheks
- Glucose currently improved and stable
#Nonischemic myocardial injury
- Likely secondary to viral myocarditis
- No chest pain or ischemic ECG findings
- Flat troponin trend not consistent with ACS
#Primary hypertension
- Home regimen reportedly included losartan, noncompliant
- No known history of hypertensive systemic disease
- Holding antihypertensives due to cardiogenic shock
#Hypothyroidism
- Unclear etiology, does not take levothyroxine replacement
- TSH on arrival was 2.81, no symptoms of abnormal thyroid function
Diet: Cholesterol-lowering, 1500 mL fluid restriction
DVT prophylaxis: IV heparin drip
CODE STATUS: Full code
Anticipated Discharge: > 48 hours
Subjective/Interval History
-
Date of Service: December 13, 2024
Seen and examined at the bedside. No acute events reported overnight. Hemodynamically stable on milrinone and Lasix drip, otherwise afebrile and on room air
Patient states she feels better today. Renal function stable without significant improvement. Leukocytosis resolved
She denies any new complaints as of this morning
Objective Data
-
Labs:
Laboratory Results
12/12/24 12/13/24 12/13/24
23:53 04:13 07:10
WBC 10.8
Hgb 9.6 L
Hct 28.4 L
Plt Count 309
APTT 139.7 H > 200 H*
Sodium 134 L
Potassium 3.6
Chloride 107
Carbon Dioxide 17 L
BUN 65 H
Creatinine 1.9 H
Glucose 147 H
Calcium 7.8 L
Total Bilirubin 0.5
AST 38 H
ALT 45 H
Alkaline Phosphatase 86
12/13/24 12/13/24 12/13/24
08:16 15:00 17:00
WBC
Hgb
Hct
Plt Count
APTT 45.6 H Pending
Sodium Pending
Potassium Pending
Chloride Pending
Carbon Dioxide Pending
BUN Pending
Creatinine Pending
Glucose Pending
Calcium Pending
Total Bilirubin
AST
ALT
Alkaline Phosphatase
Vital Signs:
Vital Signs
Temp Pulse Resp BP Pulse Ox
97.5 F 85 18 96/64 94
12/13/24 07:00 12/13/24 11:35 12/13/24 10:45 12/13/24 11:35 12/13/24 10:58
I&O
12/12/24 12/13/24 12/14/24
06:59 06:59 06:59
Intake Total 1261.1 / 1294.5 1523.4 / 1545.3 271.5 / 271.5
Output Total 950 / 950 800 / 800
Balance 311.1 / 344.5 723.4 / 745.3 271.5 / 271.5
Review of Systems
-
History Source: Patient
All other systems: Reviewed and negative
Physical Exam
-
General: Well Developed, No Apparent Distress and Obese
HEENT: Normocephalic, Atraumatic, Moist Mucous Membranes and Anicteric
Respiratory: Rales (bibasilar, mild) and Non Labored Respirations; Negative Wheezes, Rhonchi or Accessory Resp Muscle Use
Cardiac: Regular Rhythm, S1/S2 and Murmur; Negative Rub, JVD or Gallop
GI: Soft, Nontender, Nondistended and Normal Bowel Sounds
Musculoskeletal: No Clubbing, No Cyanosis and No Edema
Skin: Warm, Dry and Normal Turgor; Negative Rash
Neuro: AO x 3 and Nonfocal/Grossly Intact; Negative Tremors
Psych: Calm
Data Reviewed
-
Labs: Labs Reviewed by me, Discussed with Physician (Cardiology) and Discussed with Patient
--- NOTE | 2024-12-13 12:13 | W.PN.NEPH.PH ---
Today's Communication / Plan
-
Increase furosemide drip
Assessment/Plan
-
74-year-old female with past medical history of hypertension presented to the ER reporting cough, Echo showed ejection fraction of 20% with severe MR/TR and right ventricle thrombus. Was hypotensive in 70s/50s. proBNP > 27,000, elevated
lactate�2.5,
Renal consult for acute kidney injury with a creatinine of 2
Patient denies any alcohol use. She takes antihypertensive medication for many years well-controlled.
COVID-19 and flu test done earlier in the week was negative
Impression.
Acute kidney injury with creatinine of 2 with admission creatinine 1.7 etiology cardiorenal syndrome as likely etiology
Hematuria 7-10 red blood cells with 3+ albumin on urinalysis
New cardiomyopathy with ejection fraction 20% severe valve disorder MR and TR with right throb
Cardiogenic shock/NSTEMI
Mild transaminitis
Recent viral infection
Hypertension history
Plan.
Continue milrinone, watch ectopy this may become an issue
Continue furosemide drip, increased dose given poor urine output still
May consider the addition of Diuril if needed
Follow BMP
No emergent dialysis needs
May need pressors if systolics remain under 90
Discussed with patient and family
Critical care time spent 32 minutes
-
-
Date of Service: December 13, 2024
CC / HPI / ROS
-
Chief Complaint:
Presents with cough
History of Present Illness:
Presents with cough increased weight and acute cardiomyopathy acute kidney injury
MIKI/Cr 1.9 stable
On milrinone and Lasix drip for decompensated heart failure
Occasional ectopy on telemetry
Hemoglobin lower at 9.6
Blood pressure low
Critically ill in ICU
Review of Systems:.
No chest pain or shortness of breath
Not currently wearing supplemental O2 with oxygen saturation 93%
No Garcia catheter in place patient states that she has only urinated once today
Labs
-
Labs:
WBC 10.8 10^3/uL (4.8-10.8) 12/13/24 04:13
RBC 3.14 10^6/uL (4.20-5.40) L 12/13/24 04:13
Hgb 9.6 g/dL (12.0-16.0) L 12/13/24 04:13
Hct 28.4 % (37.0-47.0) L 12/13/24 04:13
Plt Count 309 10^3/uL (130-400) 12/13/24 04:13
eGFR 27.54 12/13/24 04:13
Phosphorus 4.8 mg/dl (2.5-4.5) H 12/12/24 04:33
Oys-L-Desrfvstgnz Pept > 88680 pg/ml 12/10/24 12:33
Albumin 3.1 g/dl (3.5-5.0) L 12/13/24 04:13
Physical Exam
-
Vital Signs:
Vital Signs
Temp Pulse Resp BP Pulse Ox
97.2 F 85 18 96/64 94
12/13/24 11:56 12/13/24 11:35 12/13/24 10:45 12/13/24 11:35 12/13/24 10:58
Cardiovascular:: Regular rate and rhythm
Respiratory:: Bilateral: Coarse
Lung Excursion:: Normal
Abdomen:: Nontender and Soft
Bowel Sounds:: Normal
Extremity Edema:: +2: Bilateral:
[2024-12-13] MEDS: PRIMACOR 20 MG 100 IV (12:50)
[2024-12-13] MEDS: NOVOLOG FLEXPEN-MODERATE RESISTANCE 3 UNITS SC ×2 (15:39→18:48)
[2024-12-13 15:48] LABS: Glucose - Point of Care 214 mg/dl (70-99)
[2024-12-13 16:14] LABS: Blood Urea Nitrogen 77 mg/dl (7-17); Calcium 8.9 mg/dl (8.4-10.2); Carbon Dioxide 22 mmol/L (22-30); Chloride 98 mmol/L (98-107); Estimated Creatinine Clearance 26 ml/min; Glucose 160 mg/dl (70-99); Sodium 132 mmol/L (135-145)
[2024-12-13 16:26] LABS: APTT > 200 Sec (23.4-35.0)
--- NOTE | 2024-12-13 17:11 | PTCARENOTE ---
Pt has had some episodes of VT runs, BP maps 66-83. Dr Valderrama shown strips. As per Dr Valderrama, Pt tolerating the new hydralazine med started today, so the milrinone can be decreased now to 0.125 mcg/kg/min now, which will help with her ectopy. Milrinone
decreased to 3.9 ml/hr (0.125 mcg/kg/min)
--- NOTE | 2024-12-13 17:20 | PTCARENOTE ---
PT's PTT level tend to alternate with too high and then too low. Dr Valderrama and Dr Galindo updated on all levels and protocol treatments. Heparin drip rate only to be reduced by 200 units this time instead of [address] Valderrama at 1800 when
restarted at 1800.
[2024-12-13] MEDS: LASIX 50 IV (18:41)
[2024-12-13 18:48] LABS: Glucose - Point of Care 228 mg/dl (70-99)
[2024-12-13] MEDS: TYLENOL 650 MG PO ×2 (19:34→23:36)
--- NOTE | 2024-12-13 20:30 | PTCARENOTE ---
Pt received start of shift, HR SR/ST with frequent PVCs (trigeminy, couplets) on telemetry. Milrinone, heparin, and Lasix gtts infusing as documented in worklist. Updated pt on plan of care, pt states understanding. Pt c/o pain in abdomen that has
been on and off for a few hours - requesting tylenol. PRN tylenol administered - see OCT. 2L NC.
[2024-12-13] MEDS: LANTUS 0.1 UNITS SC (22:09)
[2024-12-13 22:20] LABS: Glucose - Point of Care 163 mg/dl (70-99)
[2024-12-14] VITALS (34 sets, daily range): BP systolic 82–121; BP diastolic 34–88; BMI 38.7
[2024-12-14 00:24] LABS: APTT 71.3 Sec (23.4-35.0)
--- NOTE | 2024-12-14 00:30 | PTCARENOTE ---
Voiding in bedside commode. Pt states she feels as if the insulin she is receiving is giving her stomach aches as they seems to come on only after insulin administration. Pt states tylenol is effective to relieve ache - PRN tylenol (see MAR).
--- NOTE | 2024-12-14 00:53 | PTCARENOTE ---
PTT 71.3. Spoke with RAULITO Benitez about current order to rebolus based on PTT. Hold bolus, but still increase gtt +200u/hr.
[2024-12-14 04:24] LABS: % Basophils 0.3 % (0-2); % Eosinophils 1.8 % (0-6); % Immature Granulocytes 1.5 % (0-0.5); % Lymphocytes 16.4 % (20.5-51.1); % Monocytes 9.1 % (1.7-9.3); % Neutrophils 70.9 % (42.2-75.2); Absolute Eosinophils 0.2 10^3/uL (0-0.7); Absolute Immature Granulocytes 0.2 10^3/uL (0-0.05); Absolute Lymphocytes 1.9 10^3/uL (1.2-3.4); Absolute Monocytes 1.1 10^3/uL (0.1-0.6); Absolute Neutrophils 8.2 10^3/uL (1.4-6.5); Hematocrit 28.9 % (37.0-47.0); Hemoglobin 9.7 g/dL (12.0-16.0); Mean Corp Hgb Conc. 33.6 g/dL (33.0-37.0); Mean Corpuscular Hgb 29.9 pg (27.0-31.0); Mean Corpuscular Volume 89.2 fL (81.0-99.0); Mean Platelet Volume 10.6 fL (7.4-10.4); Nucleated Red Blood Cells % 1.2 %; Platelet Count 316 10^3/uL (130-400); Red Blood Cell Count 3.24 10^6/uL (4.20-5.40); Red Cell Dist. Width 14.6 % (11.5-14.5); White Blood Cell Count 11.6 10^3/uL (4.8-10.8)
[2024-12-14 05:24] LABS: ALT (SGPT) 45 U/L (0-35); AST (SGOT) 36 U/L (14-36); Albumin 3.5 g/dl (3.5-5.0); Alkaline Phosphatase 107 U/L (38-126); Blood Urea Nitrogen 80 mg/dl (7-17); Calcium 8.8 mg/dl (8.4-10.2); Carbon Dioxide 20 mmol/L (22-30); Chloride 99 mmol/L (98-107); Direct Bilirubin 0.4 mg/dl (0.0-0.4); Estimated Creatinine Clearance 23 ml/min; Glucose 157 mg/dl (70-99); Magnesium 2.3 mg/dl (1.6-2.3); Potassium 3.6 mmol/L (3.5-5.1); Sodium 132 mmol/L (135-145); Total Bilirubin 0.6 mg/dl (0.2-1.3)
[2024-12-14] MEDS: KCL 40 MEQ PO (06:26)
[2024-12-14] MEDS: NOVOLOG FLEXPEN-MODERATE RESISTANCE 1 UNITS SC ×2 (07:31→12:40)
[2024-12-14 07:35] LABS: APTT 103.5 Sec (23.4-35.0)
[2024-12-14] MEDS: TYLENOL 650 MG PO (07:45)
[2024-12-14] MEDS: APRESOLINE 10 MG PO (07:45)
[2024-12-14] MEDS: PRIMACOR 20 MG 100 IV ×3 (07:46→22:13)
[2024-12-14] MEDS: DESENEX/MITRAZOL/ZEASORB 1 APPLIC TOPICAL ×2 (07:48→21:30)
[2024-12-14 07:53] LABS: Glucose - Point of Care 166 mg/dl (70-99)
[2024-12-14] MEDS: PEPCID PO (08:23)
[2024-12-14] MEDS: PROTONIX IV 40 MG IV (09:00)
[2024-12-14] MEDS: CORDARONE 518 MG IV (09:00)
[2024-12-14] MEDS: NSS (PRESERVATIVE FREE) 10 ML IV (09:00)
--- NOTE | 2024-12-14 09:14 | W.PN.CD ---
Today's Communication / Plan
-
go back to milrinone 0.25
amiodarone for ventricular ectopy
repeat echo tomorrow
Impression / Plan
-
Cardiogenic shock
-diagnosis is a threat to life
-we tried adding hydralazine and reducing milrinone, but she looks worse today
-go back to milrinone 0.25
-requires monitoring of labs/tele
Acute HFrEF
-continue lasix drip: nephrology had increased to 30
Cardiomyopathy, new, severe
-echo 12/10: EF 20%, severe MR, decreased RV fx, severe TR, +RV thrombus
-etiology may be viral myocarditis: with viral syndrome 2-3 weeks ago
-eventual cath for ischemic eval
-no beta michelle yet
RV thrombus:
-IV heparin, with eventual transition to eliquis once cath performed
NSVT
-add amiodarone
Abnormal troponin:
-acute, non ischemic myocardial injury in setting of above
MIKI:
-trend with diuresis
Severe MR, TR, pulm HTN
-diuresis as above
CCT 30 minutes
Physical Exam
Vital Signs/Labs
Vital Signs
Temp Pulse Resp BP Pulse Ox
97.3 F 89 20 110/80 93
12/14/24 08:00 12/14/24 07:45 12/14/24 07:00 12/14/24 07:45 12/14/24 07:00
12/13/24 12/14/24 12/15/24
06:59 06:59 06:59
Actual Weight 106.5 kg 105.4 kg
12/14/24 04:12
12/14/24 04:12
PT 15.0 Sec (11.4-14.6) H 12/12/24 14:58
INR 1.15 12/12/24 14:58
APTT 103.5 Sec (23.4-35.0) H 12/14/24 06:38
Magnesium 2.3 mg/dl (1.6-2.3) 12/14/24 04:12
12/10/24
12:33
Vmk-O-Gqaviiftlym Pept > 65704
Physical Exam
Constitutional: No acute distress and Comfortable
EENT: Moist mucous membranes
Cardiovascular: Pedal edema is absent, Rhythm/rate is irregular and JVD present
Respiratory: Respiratory effort normal
Neuro/Psych: AO x 3
Data Reviewed
-
Date of Service: December 14, 2024
EKG: Other (tele: SR, PVC's, NVST)
Labs: Labs Reviewed by me
Critical Care Time (in minutes): 30
--- NOTE | 2024-12-14 09:17 | W.PN.NEPH.PH ---
Today's Communication / Plan
-
CRRT
Assessment/Plan
-
74-year-old female with past medical history of hypertension presented to the ER reporting cough, Echo showed ejection fraction of 20% with severe MR/TR and right ventricle thrombus. Was hypotensive in 70s/50s. proBNP > 27,000, elevated
lactate�2.5,
Renal consult for acute kidney injury with a creatinine of 2
Patient denies any alcohol use. She takes antihypertensive medication for many years well-controlled.
COVID-19 and flu test done earlier in the week was negative
Impression.
Acute kidney injury with creatinine of 2 with admission creatinine 1.7 etiology cardiorenal syndrome as likely etiology
Hematuria 7-10 red blood cells with 3+ albumin on urinalysis
New cardiomyopathy with ejection fraction 20% severe valve disorder MR and TR with right throb
Cardiogenic shock/NSTEMI
Mild transaminitis
Recent viral infection
Hypertension history
Plan.
cardiology managing milrinone, watch ectopy, for amiodarone
stop furosemide drip no significant UOP change with increased dose
can attempt lasix bolus with diuril in the interim
Follow BMP
No emergent dialysis needs, but she will need CRRT
keep MAP > 65
Discussed with patient
critical care time 40 minutes
-
-
Date of Service: December 14, 2024
CC / HPI / ROS
-
Chief Complaint:
Presents with cough
History of Present Illness:
Presents with cough increased weight and acute cardiomyopathy acute kidney injury
MIKI/Cr worse to 2.6
On milrinone and Lasix drip for decompensated heart failure, but only 800ml/d UOP
increasing ectopy on telemetry
Hemoglobin low stable at 9.7
Blood pressure lowm but off levophed
Critically ill in ICU
Review of Systems:.
No chest pain or shortness of breath
Garcia catheter in place
nausea and malaise
Labs
-
Labs:
WBC 11.6 10^3/uL (4.8-10.8) H 12/14/24 04:12
RBC 3.24 10^6/uL (4.20-5.40) L 12/14/24 04:12
Hgb 9.7 g/dL (12.0-16.0) L 12/14/24 04:12
Hct 28.9 % (37.0-47.0) L 12/14/24 04:12
Plt Count 316 10^3/uL (130-400) 12/14/24 04:12
Sodium 132 mmol/L (135-145) L 12/14/24 04:12
Potassium 3.6 mmol/L (3.5-5.1) 12/14/24 04:12
Chloride 99 mmol/L (98-107) 12/14/24 04:12
Carbon Dioxide 20 mmol/L (22-30) L 12/14/24 04:12
BUN 80 mg/dl (7-17) H 12/14/24 04:12
Creatinine 2.6 mg/dL (0.6-1.0) H 12/14/24 04:12
eGFR 18.90 12/14/24 04:12
Glucose 157 mg/dl (70-99) H 12/14/24 04:12
Calcium 8.8 mg/dl (8.4-10.2) 12/14/24 04:12
Phosphorus 4.8 mg/dl (2.5-4.5) H 12/12/24 04:33
Per-P-Gjntbvgsxbs Pept > 92311 pg/ml 12/10/24 12:33
Albumin 3.5 g/dl (3.5-5.0) 12/14/24 04:12
Physical Exam
-
Vital Signs:
Vital Signs
Temp Pulse Resp BP Pulse Ox
97.3 F 89 20 110/80 93
12/14/24 08:00 12/14/24 07:45 12/14/24 07:00 12/14/24 07:45 12/14/24 07:00
Cardiovascular:: Irregular rate and rhythm
Respiratory:: Bilateral: Coarse
Lung Excursion:: Normal
Abdomen:: Nontender and Soft
Bowel Sounds:: Normal
Extremity Edema:: None: Bilateral:
--- NOTE | 2024-12-14 10:18 | W.PN.INTV ---
Today's Communication / Plan
Recommendations
- Discontinue Lasix infusion
- Start amiodarone infusion
- Follow-up echocardiogram in a.m.
- Placed Trialysis for CRRT access
Assessment
-
Patient is a very pleasant 74-year-old female who presents after cough, flulike symptoms that started about 2 weeks ago. She also had low-grade fever and presented to the ER with increasing fatigue and shortness of breath. Workup in the emergency
room showed elevated troponin, significantly elevated BNP and a low voltage EKG. Stat echocardiogram showed reduced biventricular systolic function and patient was noted to be in cardiogenic shock. She was started on milrinone infusion. RV
thrombus was also noted and heparin drip was also started. She was admitted to the ICU for further management and framing mechanic consultation was requested.
Last 24 hours, 12/14. 108/50, not needing Levophed. Saturating 92 to 93% on room air.
Continues to be severely oligoanuric, total urine output 900 over last 24 hours with rising creatinine
Current infusions heparin drip, milrinone, Lasix.
Hemoglobin stable at 9.7, WBC count slightly elevated 11.6, normal platelets.
Sodium 132, creatinine up to 2.6 now. It was 1.9 yesterday. Magnesium normal at 2.3. Potassium at 3.6, patient received 40 of potassium already.
Blood cultures have stayed negative
#1. Shock, cardiogenic. Biventricular severe dilation, LVEF 20%. Severe mitral regurgitation as well as severe tricuspid regurgitation with RV thrombus.
- ?Viral myocarditis. Low voltage EKG noted. No changes of pericarditis noted. No pleuritic discomfort or chest pain reported
- Cardiology service on case. Patient currently on milrinone infusion, earlier required Levophed, currently off Levophed
- Minimal response to IV Lasix 80 mg, now transitioned to Lasix infusion, still oliguric. Received metolazone for 2 days without any significant response.
- Levophed as needed to keep MAP above 65
- Monitor electrolytes closely
- Follow-up echocardiogram 12/15. Anticipate left heart cath and possibly right heart cath also in next 24 hours. Patient might need LVAD
- Amiodarone to be started per cardiology recommendations in view of ectopy. Magnesium normal, potassium replaced with 40 mill equivalent p.o.
#2. RV thrombus. Suspect this is in the setting of severe biventricular dilation and resultant stasis.
- Patient has been started on heparin infusion.
#3. Acute kidney injury with hyperkalemia and metabolic acidosis, oliguric. Suspect this is related to cardiogenic shock and decreased cardiac output.
- Creatinine rising, 2.6 this morning. Continues to be oligoanuric. Patient developing more nausea and decreased appetite
-Nephrology service on case, CRRT recommended, will obtain HD access
- Avoid hypotension, keep MAP above 65
- Urine sodium less than 5, consistent with severe decrease in renal perfusion with underlying cardiogenic shock.
- Discontinue Lasix infusion
- Lactate minimally elevated, likely reflective of poor perfusion in the setting of cardiogenic shock. Follow-up lactate improved from 2.8 earlier to most recently 1.7
#4. Mildly abnormal LFTs. Suspect this is related to cardiogenic shock and probably hepatic congestion. Lactate minimally elevated.
#5. Cough with recent URI symptoms. X-ray is not suggestive of lebron consolidation or pneumonia.
- Procalcitonin unremarkable, monitor off antibiotics
- Continue volume management with aggressive diuresis
- No infiltrate on imaging
#6. DM with hyperglycemia.
- Continue Lantus 10 units nightly.
- SSI in addition
DVT prophylaxis: On heparin infusion
GERD symptoms. On Pepcid.
Case discussed with nephrology and cardiology service,
Critical Care time 52 mins -- The patient is admitted for acute critical illness for the treatment of vital organ failure and/or prevention of further life-threatening conditions. Total care includes time spent in review of history, physical exam,
medications, hemodynamic/ventilator parameters, laboratory data, imaging and discussion with house staff, pharmacy, respiratory therapy, health care technician, and nursing.
Subjective Dataa
Subjective Data
Date of Service:
Date of Service: December 14, 2024
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
Subjective:
Patient sitting in bed, reports feeling nauseous and mildly increased coughing.
Review of Systems
Genitourinary: Other (All 14 systems reviewed and negative except as stated above in the history of present illness.)
Objective Data
Data Reviewed
Vital Signs / I&O / Oxygen:
Vital Signs
Temp Pulse Resp BP Pulse Ox
97.3 F 89 22 108/50 96
12/14/24 08:00 12/14/24 09:42 12/14/24 09:42 12/14/24 09:42 12/14/24 09:42
Intake and Output
12/13/24 12/14/24 12/15/24
06:59 06:59 06:59
Intake Total 1523.4 / 1545.3 1100.6 / 1123.5 192.3 / 192.3
Output Total 800 / 800 975 / 975
Balance 723.4 / 745.3 125.6 / 148.5 192.3 / 192.3
SaO2 96
Nasal Cannula flow liters per 2
minute
Physical Exam
General: Comfortable and Good Appetite
HEENT: Normocephalic, Anicteric and Moist Mucous Membranes
Cardiovascular: S1-S2 and Irregular Rhythm
Respiratory: Clear and Non-Labored Respirations
GI: Soft, Non Distended, Non Tender and Normal Bowel Sounds
Neurology: AO x 3
Skin: Warm and Dry
Labs/Micro/Reports
Lab Data
12/14/24 04:12
12/14/24 04:12
Laboratory Results
12/13/24 12/14/24 12/14/24
15:30 00:03 06:38
APTT > 200 H* 71.3 H 103.5 H
Microbiology
12/12/24 23:53 Blood/Venous Blood Culture - Preliminary
No Growth in 24 hours- Final report to follow
12/11/24 14:02 Blood/Venous Blood Culture - Preliminary
No Growth in 48 hours- Final report to follow
12/11/24 14:13 Blood/Venous Blood Culture - Preliminary
No Growth in 48 hours- Final report to follow
12/11/24 10:52 Nasal Swab Influenza Types A & B (TABITHA) - Final
Negative for Influenza A & B, NAAT
Negative results must be combined with clinical observations
and patient history.
Nucleic Acid Amplification test (NAAT)performed on the
[employer] platform.
[2024-12-14] MEDS: STERILE WATER FOR INJECTION 18 ML IV ×2 (10:29→19:59)
[2024-12-14] MEDS: DIURIL 0.5 GRAM VIAL 0.5 GRAMS IV ×2 (10:30→19:59)
[2024-12-14] MEDS: LASIX 100 MG IV (10:37)
--- NOTE | 2024-12-14 11:19 | W.PN.HOSP.TC ---
Today's Communication/Plan
-
Start CRRT
Increased milrinone at 0.25
Lasix IV push + chlorthalidone
Amiodarone drip for NSVT
Heparin drip for RV thrombus
May need Impella v LVAD (relative contraindications with RV systolic dysfunction)
Assessment / Plan
Assessment / Plan
#Cardiogenic shock
#Acute biventricular heart failure
#New onset cardiomyopathy with reduced LVEF
#Type I cardiorenal syndrome with MIKI
#NSVT
- Differential diagnoses include viral myocarditis versus ischemic disease; recent viral infection
- Echocardiogram here showed LVEF 20% with severely reduced RV systolic function, RV thrombus seen
- Was started on milrinone and Lasix drip with as needed metolazone; transitioned to Lasix IV push
- Cardiology following, added hydralazine PO 10 mg 3 times daily for afterload reduction
- Unable to place RHC/[place] due to RV thrombus and risk for dislodgment
- Has developed ectopy/NSVT on milrinone infusion, cardiology started IV amiodarone
- Remains cool/wet phenotype, on room air; I/Os and weight not improving as hoped
- Creatinine increased as of morning 12/14; nephrology planning for CRRT
Plan
- Continue with IV Lasix pushes, PRN metolazone/chlorthalidone for diuresis
- Continue with milrinone drip now at 0.25 and monitor telemetry
- Continue hydralazine for afterload reduction, uptitrate as needed
- Continue IV amiodarone for NSVT/ectopy
- Hold antihypertensives and negative inotropic agents
- Starting CRRT today for MIKI and uptrending creatinine
- May need Impella device or LVAD (Both relative contraindication with RV dysfucntion)
- Monitor strict I's/O's, daily weights, BMP
- Plan for LHC and RHC
- Repeat TTE 12/15
#RV echodensity concerning for thrombus
- Seen on echocardiogram, unclear if this is clot in transit versus RV fixed thrombi w/ low flow state
- No known underlying hypercoagulable diseases or known cancer history, has not had clots before
- Has not had significant hypoxemia, low concern for transit causing PE at this time
- Was started on heparin drip upon arrival, planning for CTA thorax PE when renal function improved
Plan
- Consider hypercoag workup (factor V Leiden, APS Abs, Protein C/S deficiency, ATIII deficiency)
- Planning to repeat echocardiogram on Sunday to reassess
- Monitor respiratory status
- Continue heparin drip with plan for DOAC
#Transaminitis
- Suspect related to congestive hepatopathy due to cardiogenic shock
- No known history of underlying liver disease
- Will trend LFTs, consider RUQ US and hep panel if worsening
#Prediabetes
- Hemoglobin A1c was 6.4; associated with hyperglycemia in the hospital
- Was started on Lantus 10 units nightly with ISS and Accu-Cheks
- Glucose currently improved and stable
#Nonischemic myocardial injury
- Likely secondary to viral myocarditis
- No chest pain or ischemic ECG findings
- Flat troponin trend not consistent with ACS
#Primary hypertension
- Home regimen reportedly included losartan, noncompliant
- No known history of hypertensive systemic disease
- Holding antihypertensives due to cardiogenic shock
#Hypothyroidism
- Unclear etiology, does not take levothyroxine replacement
- TSH on arrival was 2.81, no symptoms of abnormal thyroid function
Diet: Cholesterol-lowering, 1500 mL fluid restriction
DVT prophylaxis: IV heparin drip
CODE STATUS: Full code
Anticipated Discharge: > 48 hours
Subjective/Interval History
-
Date of Service: December 14, 2024
Seen and examined at the bedside. No acute events reported overnight. AFVSS with milrinone dependency
Renal function not improving with sequential nephron blockade and milrinone. Milrinone dose increased, transitioned off Lasix drip to IV push. Planning for CRRT with nephrology.
Patient states she has some cramping pain in her belly consistent with her IBS. Denies chest pain or dyspnea. Is anxious about change to her plan today
Objective Data
-
Labs:
Laboratory Results
12/14/24 12/14/24 12/14/24
00:03 04:12 06:38
WBC 11.6 H
Hgb 9.7 L
Hct 28.9 L
Plt Count 316
APTT 71.3 H 103.5 H
Sodium 132 L
Potassium 3.6
Chloride 99
Carbon Dioxide 20 L
BUN 80 H
Creatinine 2.6 H
Glucose 157 H
Calcium 8.8
Total Bilirubin 0.6
AST 36
ALT 45 H
Alkaline Phosphatase 107
12/14/24
14:00
WBC
Hgb
Hct
Plt Count
APTT Pending
Sodium
Potassium
Chloride
Carbon Dioxide
BUN
Creatinine
Glucose
Calcium
Total Bilirubin
AST
ALT
Alkaline Phosphatase
Vital Signs:
Vital Signs
Temp Pulse Resp BP Pulse Ox
97.3 F 88 21 121/84 94
12/14/24 08:00 12/14/24 10:45 12/14/24 10:45 12/14/24 10:29 12/14/24 10:00
I&O
12/13/24 12/14/24 12/15/24
06:59 06:59 06:59
Intake Total 1523.4 / 1545.3 1100.6 / 1123.5 249.4 / 249.4
Output Total 800 / 800 975 / 975 450 / 450
Balance 723.4 / 745.3 125.6 / 148.5 -200.6 / -200.6
Review of Systems
-
History Source: Patient
All other systems: Reviewed and negative
Physical Exam
-
General: Well Developed, Well Nourished, No Apparent Distress and Comfortable
HEENT: Normocephalic, Atraumatic, Moist Mucous Membranes and Anicteric
Respiratory: Clear to Auscultation and Non Labored Respirations; Negative Accessory Resp Muscle Use
Cardiac: Regular Rhythm, S1/S2 and JVD (Mandibular angle); Negative Murmur, Rub or Gallop
GI: Soft, Nontender, Nondistended and Normal Bowel Sounds
Musculoskeletal: No Clubbing, No Cyanosis and No Edema
Skin: Warm, Dry and Normal Turgor; Negative Rash
Neuro: AO x 3 and Nonfocal/Grossly Intact; Negative Central Nerve's Intact
Psych: Calm
Data Reviewed
-
Labs: Labs Reviewed by me, Discussed with Patient and Discussed with Family
--- NOTE | 2024-12-14 11:29 | OR.RPT ---
Operative Report
Operative Report
Right IJ Trialysis Catheter placement (15 cm)
Indication: Cardiogenic shock, MIKI, access for HD/CRRT
Consent obtained from: Patient. Daughter also at bedside.
Time-out was performed and patient was placed in Trendelenburg position. Ultrasound was used to assess patency of Right IJ vein. Under sterile conditions, area was cleaned with chlorhexidine and then a full body drape was placed. 3 mL of local
anesthesia with lidocaine was injected. Under real-time ultrasound guidance, long axis view, the needle was inserted and vein was punctured, once blood was aspirated, syringe was removed and guidewire was advanced which did not meet any resistance.
Subsequently needle was withdrawn and guidewire was left in place. Ultrasound was used again to confirm presence of guidewire inside the vein lumen. A small ander was placed at the skin and a dilator was advanced to about 50% of its length.
Serial dilation was performed with 3 progressively larger dilators. Last dilator was removed and Trilalysis catheter was advanced over guidewire and subsequently guidewire was removed. All 3 ports were capped and they were easy to flush and were
withdrawing blood without any resistance. Catheter was sutured to the skin and dressing was applied.
Ultrasound of the lungs was performed and good lung sliding was obtained. Patient stayed hemodynamically stable through the procedure.
Complications: None. CXR showed appropriate positioning. No Pneumothorax.
Blood loss: 1-2 ml
Time spent: 30 min
Date of Service: 12/14/2024
[2024-12-14 11:37] LABS: Glucose - Point of Care 172 mg/dl (70-99)
--- NOTE | 2024-12-14 11:41 | PTCARENOTE ---
Updated assessment, vital signs ongoing and as documented. Follow up plan of cares with critical care team. Site Coordinator team, cardiology, nephrology and hospitalist team in and out at bedside thru am. HD line placed. Await radiology team for
placement confirmation. VSS thru procedure. Primacor titration as per cardiology, noted therapeutic PTT trend, continue protocol trends. Garcia placed for critical care i/o and robert. Site Coordinator with family at bedside to update events,
hospitalization, procedure and ongoing plan of cares. Continue ongoing critical care trends. Vital signs and CRRT orders with follow up. Continue teaching and supportive cares. Update with pharmacy, will update lab orders and trends as per
nephrology. Critical care nursing at bedside.
[2024-12-14] MEDS: RFP-401 HD Soln (K+ 4 mEq/L) 15000 ML CRRT-IRR (12:48)
--- NOTE | 2024-12-14 14:08 | PTCARENOTE ---
Updated plan of cares. Nephrology at bedside for initiation of CRRT. Update response to previous medications. Update adjustment and start of amiodarone. Will follow up labs, lyte trends as ordered. Follow up with hotel maintenance engineer team. VS as documented,
assessment unchanged, continue to follow along with critical care team. Update with patient at bedside continue teaching and supportive cares.
[2024-12-14] MEDS: HEPARIN 25000 UNITS/250 ML IV (15:24)
[2024-12-14 15:27] LABS: APTT 146.1 Sec (23.4-35.0)
[2024-12-14] MEDS: APRESOLINE PO ×2 (15:31→21:36)
--- NOTE | 2024-12-14 15:43 | CM ---
Alert awake oriented patient who lives with her Kaleb in a 2 story home with 2 steps to enter and 15steps to bed/bathroom but has first floor set up also. She is independent in activates of daily living.She does drive .No DME.
Had [facility] in past . No SNF hx
Pharmacy [facility]
PCP Dr Campoverde
PLAN Will need PT OT bill for dc planning
--- NOTE | 2024-12-14 15:48 | PTCARENOTE ---
Continue with heparin, amiodarone protocols. CRRT ongoing and hourly/bedside follow up. Updates with supervisor powdered metal thru shift. Urine output remains about 75-100ml/hrly. Continue supportive cares. Nausea continues. Continue with sips as tolerated. Will
try again with po intake for dinner. Updates with family ongoing. Teaching and supportive cares ongoing.
[2024-12-14] MEDS: OFIRMEV 100 IV (16:58)
[2024-12-14] MEDS: NOVOLOG FLEXPEN-MODERATE RESISTANCE SC (17:15)
[2024-12-14 17:25] LABS: Glucose - Point of Care 136 mg/dl (70-99)
--- NOTE | 2024-12-14 18:34 | PTCARENOTE ---
Patient vss as documented. Follow up assessment. Family home at this time. Circuit down with CRRt at this time despite intervention. Setting up second system. Heparin drip on and protocol follow up in process. Patient presently making 50-100 hrly
urine output. Will restart when ready follow up labs still ordered for 2000hrs. Will update Dr Fernando and follow up isidro labs as ordered. Patient resting comfortable 50% of dinner taken this pm.
--- NOTE | 2024-12-14 19:07 | W.PN.UPDATE ---
Update Note
Progress Note Update
RTSP. CRRT running during day, Just clotted off. Heparin gtt running. ectopy improved with amio
BP stable
remove UF from CRRT in lieu of Lasix/diuril for more reliable output in case CRRT clots overnight.
--- NOTE | 2024-12-14 19:43 | PTCARENOTE ---
Received pt at 19:00. CRRT filter change in progress, restarted treatment at 19:13. Pt with immediate increased venous and effluent pressures, attempted to switch venous and arterials lines, pressures worse. Placed back to initial venous and
arterial lines. Nephrology changed the CRRT order to no UF. Nephrology made aware of pressures with start of treatment.
Pt Ox3, pleasant. Breath sounds diminished t/o. Weak but palpable pulses, SR with frequent multifocal PVCs. Continues on milrinone, amiodarone, heparin gtts as ordered. Abdomen round, hypoactive bowel sounds. Poor appetite, attempting to eat at this
time and states that she is done as it 'doesn't feel right'. Safe environment maintained, call weber within reach, plan of care ongoing.
[2024-12-14] MEDS: LASIX 80 MG IV (19:57)
[2024-12-14 20:18] LABS: Ionized Calcium 1.13 mMOL/L (1.15-1.33)
[2024-12-14 20:41] LABS: Blood Urea Nitrogen 66 mg/dl (7-17); Calcium 8.5 mg/dl (8.4-10.2); Carbon Dioxide 23 mmol/L (22-30); Chloride 101 mmol/L (98-107); Estimated Creatinine Clearance 25 ml/min; Glucose 174 mg/dl (70-99); Magnesium 2.2 mg/dl (1.6-2.3); Phosphorus 4.7 mg/dl (2.5-4.5); Sodium 133 mmol/L (135-145)
[2024-12-14] MEDS: LANTUS 0.1 UNITS SC (21:30)
[2024-12-14] MEDS: CALCIUM GLUCONATE 130 MG IV (21:30)
[2024-12-14 23:49] LABS: APTT 113.5 Sec (23.4-35.0)
[2024-12-15] VITALS (43 sets, daily range): BP systolic 83–120; BP diastolic 47–80; PULSE 83–87; O2SAT 93–94; BMI 39.4
--- NOTE | 2024-12-15 00:23 | PTCARENOTE ---
CRRT filter with clotting and increased effluent and venous pressures. Venous pressures up to 378 for 00:00 check, immediately after check, venous pressures increased to low 400s and effluent pressures to 500. Emergency rinseback completed. Per
Kassie, not to restart CRRT at this time.
PTT = 113.5, heparin titrated as ordered, now at 1100 units/hr, repeat PTT at 06:00.
[2024-12-15 03:21] LABS: Venous Blood Gas B.E. -3.6 mmol/L (-4 to +4); Venous Blood Gas HCO3 21.5 mmol/L (22-27); Venous Blood Gas O2 Sat % 95.6 %; Venous Blood Gas pCO2 38 mmHg (35-48); Venous Blood Gas pH 7.36 (7.32-7.43); Venous Blood Gas pO2 74 mmHg (30-50)
[2024-12-15 03:36] LABS: % Basophils 0.4 % (0-2); % Eosinophils 0.9 % (0-6); % Immature Granulocytes 1.2 % (0-0.5); % Lymphocytes 12.8 % (20.5-51.1); % Monocytes 8.3 % (1.7-9.3); % Neutrophils 76.4 % (42.2-75.2); Absolute Basophils 0.1 10^3/uL (0-0.2); Absolute Eosinophils 0.1 10^3/uL (0-0.7); Absolute Immature Granulocytes 0.2 10^3/uL (0-0.05); Absolute Lymphocytes 1.8 10^3/uL (1.2-3.4); Absolute Monocytes 1.2 10^3/uL (0.1-0.6); Absolute Neutrophils 10.6 10^3/uL (1.4-6.5); Hemoglobin 9.5 g/dL (12.0-16.0); Mean Corp Hgb Conc. 32.8 g/dL (33.0-37.0); Mean Corpuscular Hgb 29.5 pg (27.0-31.0); Mean Corpuscular Volume 90.1 fL (81.0-99.0); Mean Platelet Volume 10.6 fL (7.4-10.4); Nucleated Red Blood Cells % 0.6 %; Platelet Count 192 10^3/uL (130-400); Red Blood Cell Count 3.22 10^6/uL (4.20-5.40); Red Cell Dist. Width 15.3 % (11.5-14.5); White Blood Cell Count 13.9 10^3/uL (4.8-10.8)
[2024-12-15 03:45] LABS: Lactic Acid 1.1 mmol/L (0.7-2.0)
[2024-12-15 03:50] LABS: ALT (SGPT) 37 U/L (0-35); AST (SGOT) 28 U/L (14-36); Albumin 3.1 g/dl (3.5-5.0); Alkaline Phosphatase 89 U/L (38-126); Blood Urea Nitrogen 60 mg/dl (7-17); Calcium 9.1 mg/dl (8.4-10.2); Carbon Dioxide 23 mmol/L (22-30); Chloride 102 mmol/L (98-107); Direct Bilirubin 0.4 mg/dl (0.0-0.4); Estimated Creatinine Clearance 27 ml/min; Glucose 142 mg/dl (70-99); Magnesium 2.1 mg/dl (1.6-2.3); Phosphorus 4.8 mg/dl (2.5-4.5); Sodium 133 mmol/L (135-145); Total Bilirubin 0.8 mg/dl (0.2-1.3); Total Protein 5.6 g/dl (6.3-8.2)
[2024-12-15 03:55] LABS: NT-proBNP > 27000 pg/ml
[2024-12-15] MEDS: LASIX 80 MG IV ×3 (05:09→20:07)
--- NOTE | 2024-12-15 06:28 | W.PN.HOSP.TC ---
Today's Communication/Plan
-
Continue milrinone
Continue heparin gtt
IV diuresis
Assessment / Plan
Assessment / Plan
Assessment
74-year-old female with history of hypertension admitted to ICU in critically ill condition for the management of cardiogenic shock
Plan
1. Cardiogenic shock
HFrEF secondary to myocarditis (recent viral infection)
COVID-negative
Weaned off Levophed
Continue milrinone with MAP >65
Hydralazine 10mg TID for afterload reduction
Developed NSVT on milrinone, now on Amio ggt
Repeat echo�ejection fraction 15�20%, right ventricular thrombus
May need Impella vs. LVAD if systolic function does not improve
Eventual left heart catheterization for ischemic evaluation
If patient is stable, CT chest PE study
Cardiology on board
Strict I/os, daily weights
BNP> 27,000
Trend trops
Eventually will start GDMT, cannot give a beta-michelle.
2. Right ventricular thrombus
Continue heparin GTT
Transition to Eliquis after cath
Patient in MIKI
3. MIKI
No known kidney injury from labs on 10/15/2023
Baseline serum creatinine at 0.9.
RIJ Trialysis catheter placed, CRRT initiated yesterday.
CRRT stopped due to clots.
Currently diuresing on Lasix and chlorothiazide IV
4. Transaminitis
Trending up
Monitor for now
Likely from hepatic congestion
5. History of hypothyroidism
TSH�2.81
DVT prophylaxis
Heparin GTT
CODE STATUS full code
Diet: Cholesterol-lowering, 1500 mL fluid restriction
DVT prophylaxis: IV heparin drip
Anticipated Discharge: > 48 hours
Subjective/Interval History
-
Date of Service: December 15, 2024
Patient reports feeling tired, fatigued. Her cough has improved.
Objective Data
-
Labs:
Laboratory Results
12/14/24 12/14/24 12/15/24
20:11 23:20 02:00
WBC
Hgb
Hct
Plt Count
APTT 113.5 H
Sodium 133 L Cancelled
Potassium 4.0 Cancelled
Chloride 101 Cancelled
Carbon Dioxide 23 Cancelled
BUN 66 H Cancelled
Creatinine 2.4 H Cancelled
Glucose 174 H Cancelled
Calcium 8.5 Cancelled
Total Bilirubin
AST
ALT
Alkaline Phosphatase
12/15/24 12/15/24
03:14 06:03
WBC 13.9 H
Hgb 9.5 L
Hct 29.0 L
Plt Count 192 D
APTT Pending
Sodium 133 L
Potassium 4.0
Chloride 102
Carbon Dioxide 23
BUN 60 H
Creatinine 2.3 H
Glucose 142 H
Calcium 9.1
Total Bilirubin 0.8
AST 28
ALT 37 H
Alkaline Phosphatase 89
Vital Signs:
Vital Signs
Temp Pulse Resp BP Pulse Ox
97.3 F 89 20 102/63 93
12/14/24 23:23 12/15/24 03:45 12/15/24 03:45 12/15/24 05:09 12/15/24 03:45
I&O
12/13/24 12/14/24 12/15/24
06:59 06:59 06:59
Intake Total 1523.4 / 1545.3 1100.6 / 1123.5 1572.1 / 1572.1
Output Total 800 / 800 975 / 975 1746 / 1746
Balance 723.4 / 745.3 125.6 / 148.5 -173.9 / -173.9
Review of Systems
-
All other systems: Reviewed and negative (Except as mentioned in HPI)
Physical Exam
-
General: Well Developed, Well Nourished and No Apparent Distress
HEENT: Normocephalic, Atraumatic and Other (With IJ catheter)
Respiratory: Clear to Auscultation
Cardiac: Regular Rhythm, S1/S2 and Murmur
GI: Soft, Nontender, Nondistended and Normal Bowel Sounds
Skin: Dry
Neuro: Awake, Alert, Oriented and AO x 3
Psych: Calm
[2024-12-15 06:48] LABS: APTT 186.2 Sec (23.4-35.0)
[2024-12-15] MEDS: NOVOLOG FLEXPEN-MODERATE RESISTANCE SC (07:15)
--- NOTE | 2024-12-15 07:26 | PTCARENOTE ---
Assumed care of pt. approx 0700.
AAox3, focally intact, normocephalic, generalized weakness however no further neurological deficits noted.
Sinus w. noted ectopy polymorphic pvcs no V runs at this time maintained on amio gtt. Normotensive w. Primacor titration metrics based on NIBP, Normothermic.
Adequate urine OP via lowery cath, CVVHD off at this time due to clotting issues reported by night team.
Poor appetite noted, will follow.
All questions answered at this time, awaiting ECHO.
[2024-12-15] MEDS: NSS (PRESERVATIVE FREE) 10 ML IV (08:01)
[2024-12-15] MEDS: STERILE WATER FOR INJECTION 18 ML IV ×2 (08:01→20:07)
[2024-12-15] MEDS: PROTONIX IV 40 MG IV (08:01)
[2024-12-15] MEDS: DIURIL 0.5 GRAM VIAL 0.5 GRAMS IV ×2 (08:01→20:07)
[2024-12-15] MEDS: DESENEX/MITRAZOL/ZEASORB 1 APPLIC TOPICAL ×2 (08:02→20:08)
--- NOTE | 2024-12-15 08:22 | PTCARENOTE ---
ECHO in progress bedside.
--- NOTE | 2024-12-15 08:30 | W.PN.NEPH.PH ---
Today's Communication / Plan
-
Continue Lasix and IV Diuril
Will hold off further CRRT for now as patient is nonoliguric
Maintain MAP 65 or greater
Remains on milrinone and amiodarone
Assessment/Plan
-
74-year-old female with past medical history of hypertension presented to the ER reporting cough, Echo showed ejection fraction of 20% with severe MR/TR and right ventricle thrombus. Was hypotensive in 70s/50s. proBNP > 27,000, elevated
lactate�2.5,
Renal consult for acute kidney injury with a creatinine of 2
Patient denies any alcohol use. She takes antihypertensive medication for many years well-controlled.
COVID-19 and flu test done earlier in the week was negative
Impression.
Acute kidney injury with creatinine of 2 with admission creatinine 1.7 etiology cardiorenal syndrome as likely etiology
Hematuria 7-10 red blood cells with 3+ albumin on urinalysis
New cardiomyopathy with ejection fraction 20% severe valve disorder MR and TR with right throb
Cardiogenic shock/NSTEMI
Mild transaminitis
Recent viral infection
Hypertension history
Plan.
cardiology managing milrinone, watch ectopy, for amiodarone
Systolic blood pressure around 90
Now nonoliguric on high-dose Lasix 80 mg 3 times daily and Diuril
Rechecks labs at 1500
We will hold off further CRRT for now
Follow BMP
keep MAP > 65
Discussed with patient
critical care time 31minutes
Total Time Spent with Patient (in minutes): 31
-
-
Date of Service: December 15, 2024
CC / HPI / ROS
-
Chief Complaint:
Presents with cough
History of Present Illness:
Presents with cough increased weight and acute cardiomyopathy acute kidney injury
Creatinine 2.3
On milrinone and Lasix 80 mg IV 3 times daily and Diuril for decompensated heart failure
Remains on amiodarone for ectopy
Patient did not tolerate milrinone wean overnight hemodynamically
Hemoglobin low stable at 9.5
Critically ill in ICU
Review of Systems:.
No chest pain or shortness of breath
Garcia catheter in place
nausea and malaise
weight up
Labs
-
Labs:
WBC 13.9 10^3/uL (4.8-10.8) H 12/15/24 03:14
RBC 3.22 10^6/uL (4.20-5.40) L 12/15/24 03:14
Hgb 9.5 g/dL (12.0-16.0) L 12/15/24 03:14
Hct 29.0 % (37.0-47.0) L 12/15/24 03:14
Plt Count 192 10^3/uL (130-400) D 12/15/24 03:14
Sodium 133 mmol/L (135-145) L 12/15/24 03:14
Potassium 4.0 mmol/L (3.5-5.1) 12/15/24 03:14
Chloride 102 mmol/L (98-107) 12/15/24 03:14
Carbon Dioxide 23 mmol/L (22-30) 12/15/24 03:14
BUN 60 mg/dl (7-17) H 12/15/24 03:14
Creatinine 2.3 mg/dL (0.6-1.0) H 12/15/24 03:14
eGFR 21.90 12/15/24 03:14
Glucose 142 mg/dl (70-99) H 12/15/24 03:14
Calcium 9.1 mg/dl (8.4-10.2) 12/15/24 03:14
Phosphorus 4.8 mg/dl (2.5-4.5) H 12/15/24 03:14
Yro-S-Cwgaqrzxzcc Pept > 12723 pg/ml 12/15/24 03:14
Albumin 3.1 g/dl (3.5-5.0) L 12/15/24 03:14
Physical Exam
-
Vital Signs:
Vital Signs
Temp Pulse Resp BP Pulse Ox
97.0 F 89 18 102/68 97
12/15/24 07:13 12/15/24 07:00 12/15/24 07:00 12/15/24 07:00 12/15/24 07:48
Cardiovascular:: Irregular rate and rhythm
Respiratory:: Bilateral: Coarse
Lung Excursion:: Normal
Abdomen:: Nontender and Soft
Bowel Sounds:: Normal
Extremity Edema:: None: Bilateral:
Garcia Catheter: Yes
[2024-12-15 08:46] LABS: Reticulocyte Count 5.5 % (0.4-2.8)
--- NOTE | 2024-12-15 08:46 | CARDSERVLU ---
Echocardiogram with Lumason completed after protocol screening completed. Allergies verified.
Patent IV site: _Rt hand____
IV site flushed with 0.9% NaCl pre and post administration.
Diluted bolus method utilized to enhance visualization of ventricular aparicio.
Total volume given: ___3.0_ mL
Patient tolerated all procedures well without complications.
--- NOTE | 2024-12-15 09:07 | W.PN.INTV ---
Today's Communication / Plan
Recommendations
c/w inotropic support, heparin ggt, IV diuresis
Monitor urine output for diuresis response
Pending repeat Echo
repeat bmp in pm
Assessment
-
ASSESSMENT:
74 year old female with 2.5 weeks of cough, shortness of breath, fatigue and fever
Shock (more likely cardiogenic vs. septic)
Cardiomyopathy (viral vs. ischemic)
Acute Heart Failure with Reduced EF
NSVT
RV Thrombus
MIKI (likely pre-renal)
Metabolic Acidosis
URI, likely viral
Transaminitis (likely shock related)
GERD/Nausea
PLAN:
Still on Milrinone ggt 0.25. Off levophed, pressures still soft -- added Hydralazine 10mg TID for afterload reduction
Off lasix ggt and transitioned to 80mg IV Lasix TID/Diuril BID, had minimal urine output with increasing horse trekking guide over the weekend-- [facility] Trialysis catheter placed, CRRT initiated yesterday, however clotted several times, CRRT stopped today -- has so far
put out >1300cc from Garcia -- will c/t monitor urine output for response to diuresis, if not responding may re-initiate CRRT
Saturating well on room air, intermittent nocturnal hypoxemia requiring 2L NC.
Developed NSVT on milrinone, now on Amio ggt
Repeat Echo done this AM, pending read. May need Impella vs. LVAD if systolic function does not improve
On Heparin ggt for RV Thrombus. no signs of active bleeding, hgb/plts stable. Repeat echo today to assess RV thrombus.
COVID (-), Flu swab negative. Blood Cultures NGTD. Concern for superimposed bacterial PNA is low. No immediate need for abx at this time. C/t monitor CBC/temp curve
Will add 10U Lantus qhs and c/w MDISS. A1C 6.4%
Patient with transaminitis and no GI/Abd sx. Likely a consequence of shock/poor perfusion. Will c/t monitor clinically.
C/w PO Pepcid for GERD sx
DVT PPx: on heparin ggt
Code Status: full code
Subjective Dataa
Subjective Data
Date of Service:
Date of Service: December 15, 2024
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
Subjective:
Patient feels well this morning. She has no acute complaints and there were no overnight events. She feels ready to move around, or at least to the chair to sit up.
Review of Systems
Genitourinary: Garcia
Objective Data
Data Reviewed
Vital Signs / I&O / Oxygen:
Vital Signs
Temp Pulse Resp BP Pulse Ox
97.0 F 89 18 102/68 97
12/15/24 07:13 12/15/24 07:00 12/15/24 07:00 12/15/24 07:00 12/15/24 07:48
Intake and Output
12/14/24 12/15/24 12/16/24
06:59 06:59 06:59
Intake Total 1100.6 / 1123.5 1607.7 / 1643.3 92.8 / 92.8
Output Total 975 / 975 1801 / 1901 270 / 270
Balance 125.6 / 148.5 -193.3 / -257.7 -177.2 / -177.2
SaO2 97
Nasal Cannula flow liters per 2
minute
Physical Exam
General: Comfortable and Good Appetite
HEENT: Normocephalic, Anicteric and Moist Mucous Membranes
Cardiovascular: S1-S2 and Irregular Rhythm
Respiratory: Clear, Non-Labored Respirations and Other (diminished air entry BL)
GI: Soft, Non Distended, Non Tender and Normal Bowel Sounds
Neurology: AO x 3
Skin: Warm and Dry
Labs/Micro/Reports
Lab Data
12/15/24 03:14
Laboratory Results
12/14/24 12/14/24 12/14/24
14:46 15:09 23:20
APTT Cancelled 146.1 H 113.5 H
12/15/24
06:03
APTT 186.2 H*
Microbiology
12/12/24 23:53 Blood/Venous Blood Culture - Preliminary
No Growth in 48 hours- Final report to follow
12/11/24 14:02 Blood/Venous Blood Culture - Preliminary
No Growth in 72 hours- Final report to follow
12/11/24 14:13 Blood/Venous Blood Culture - Preliminary
No Growth in 72 hours- Final report to follow
[2024-12-15] MEDS: APRESOLINE PO ×3 (09:15→22:39)
--- NOTE | 2024-12-15 09:29 | W.PN.CD ---
Today's Communication / Plan
-
Cont milrinone
IV diuresis per nephro
Impression / Plan
-
Cardiogenic shock
-diagnosis is a threat to life
-hold hydralazine for now repeat echo pending
- cont milrinone 0.25 --> with combo of lasix and diuril she has increase urine output
-requires monitoring of labs/tele
Acute HFrEF
-per nephro
Cardiomyopathy, new, severe
-echo 12/10: EF 20%, severe MR, decreased RV fx, severe TR, +RV thrombus
-etiology may be viral myocarditis: with viral syndrome 2-3 weeks ago
-eventual cath for ischemic eval
-no beta michelle yet
RV thrombus:
-IV heparin, with eventual transition to eliquis once cath performed
NSVT
-add amiodarone
Abnormal troponin:
-acute, non ischemic myocardial injury in setting of above
MIKI:
-trend with diuresis
Severe MR, TR, pulm HTN
-diuresis as above
Subjective: Feels good no new complaints
CCT 30 minutes
Physical Exam
Vital Signs/Labs
Vital Signs
Temp Pulse Resp BP Pulse Ox
97.0 F 89 18 102/68 97
12/15/24 07:13 12/15/24 07:00 12/15/24 07:00 12/15/24 07:00 12/15/24 07:48
12/14/24 12/15/24 12/16/24
06:59 06:59 06:59
Actual Weight 232 lb 5.875 oz 236 lb 8.896 oz
12/15/24 03:14
PT 15.0 Sec (11.4-14.6) H 12/12/24 14:58
INR 1.15 12/12/24 14:58
APTT 186.2 Sec (23.4-35.0) H* 12/15/24 06:03
Magnesium 2.1 mg/dl (1.6-2.3) 12/15/24 03:14
12/10/24 12/15/24
12:33 03:14
Gja-Z-Srszyzqszwn Pept > 31913 > 88791
Physical Exam
Constitutional: No acute distress
EENT: Anicteric
Cardiovascular: Rhythm & rate is regular
Respiratory: Respiratory effort normal and Lungs clear to auscul.
GI: Soft
Neuro/Psych: AO x 3
Data Reviewed
-
Date of Service: December 15, 2024
Medical Decision Making: Reviewed Test Results
EKG: Tracing Personally Visualized and interpreted (sr nsvt)
Echo: Tracing Personally Visualized and interpreted and Report Reviewed by me
Labs: Labs Reviewed by me
[2024-12-15] MEDS: PRIMACOR 20 MG 100 IV ×2 (09:53→23:19)
--- NOTE | 2024-12-15 10:53 | PTCARENOTE ---
Rounds completed, awaiting ECHO results, Nephro notified of low urine op.
[2024-12-15] MEDS: NOVOLOG FLEXPEN-MODERATE RESISTANCE 1 UNITS SC ×2 (11:23→17:18)
[2024-12-15 11:34] LABS: Glucose - Point of Care 160 mg/dl (70-99)
--- NOTE | 2024-12-15 12:09 | PTCARENOTE ---
Pt. OOB to chair, remains on primacor, heparin, amio, still having low urine op medical team aware.
[2024-12-15 13:10] LABS: APTT 106.9 Sec (23.4-35.0)
--- NOTE | 2024-12-15 13:12 | PTCARENOTE ---
bouts of hypotension noted, band attacher notified orders for Norepi. See flow sheets for details.
[2024-12-15 13:13] LABS: Iron 46 ug/dl (37-170)
[2024-12-15 13:22] LABS: Percent Saturation 13 % (20-50); Total Iron Binding Capacity 337 ug/dl (265-497)
--- NOTE | 2024-12-15 14:09 | PTCARENOTE ---
Cardiology (Summer) notified of consistent Vruns 4-5 beats in frequency, orders via TT to increase amio gtt to 1mg.
--- NOTE | 2024-12-15 14:30 | PTCARENOTE ---
Blade Bender Furnace Tender/Cardiology/nephro made aware of low urine op, BMP w. Mag/Phos sent early.
Norepi titrated off 1330. pt. maintaining maps 65>.
No further change in assessment.
--- NOTE | 2024-12-15 14:41 | PTCARENOTE ---
Followed up with lab regarding BMP results, lab states they will attempt to find it and run results as soon as feasible.
[2024-12-15 14:57] LABS: Blood Urea Nitrogen 64 mg/dl (7-17); Calcium 9.4 mg/dl (8.4-10.2); Carbon Dioxide 21 mmol/L (22-30); Chloride 104 mmol/L (98-107); Estimated Creatinine Clearance 23 ml/min; Glucose 153 mg/dl (70-99); Magnesium 2.2 mg/dl (1.6-2.3); Potassium 3.8 mmol/L (3.5-5.1); Sodium 134 mmol/L (135-145); eGFR 18.06
--- NOTE | 2024-12-15 15:07 | PTCARENOTE ---
Cards bedside, discussion had regarding transferring down to [facility] for further interventions.
Nephro aware, holding off on reinitiation of CVVHD for now unless pt. develops volume overload/SOB.
--- NOTE | 2024-12-15 15:26 | CM ---
Reviewed the chart notes and spoke with the patient at the bedside. PT recommending SNF. CM continues to be available to patient/family and is monitoring medical plan for needs at discharge.
Plan: Discharge plans will depend on the patient's progress.
--- NOTE | 2024-12-15 16:02 | PTCARENOTE ---
Pt. stating severe bladder spasms, intern brand notified, orders for valium.
[2024-12-15 16:08] LABS: Folate > 20.0 ng/ml (2.76-20); Vitamin B12 961 pg/ml (239-931)
[2024-12-15] MEDS: VALIUM INJECTION 1 MG IV (16:23)
--- NOTE | 2024-12-15 16:50 | PTCARENOTE ---
Family decided they are ok to transfer to [facility], Cards/Utilization Review Specialist made aware.
[2024-12-15] MEDS: HEPARIN 25000 UNITS/250 ML IV (17:06)
[2024-12-15 17:20] LABS: Glucose - Point of Care 171 mg/dl (70-99)
[2024-12-15 18:28] LABS: APTT 85.8 Sec (23.4-35.0)
[2024-12-15 21:16] LABS: Glucose - Point of Care 163 mg/dl (70-99)
[2024-12-15] MEDS: LANTUS 0.1 UNITS SC (22:39)
[2024-12-16] VITALS (47 sets, daily range): BP systolic 84–126; BP diastolic 51–79; BMI 39.8
--- NOTE | 2024-12-16 00:12 | PTCARENOTE ---
Josech run, asymptomatic. AM labs collected at this time--pending.
[2024-12-16 00:30] LABS: APTT 73.3 Sec (23.4-35.0)
[2024-12-16 00:32] LABS: ALT (SGPT) 35 U/L (0-35); AST (SGOT) 27 U/L (14-36); Albumin 3.7 g/dl (3.5-5.0); Alkaline Phosphatase 94 U/L (38-126); Blood Urea Nitrogen 63 mg/dl (7-17); Calcium 9.1 mg/dl (8.4-10.2); Carbon Dioxide 21 mmol/L (22-30); Chloride 103 mmol/L (98-107); Estimated Creatinine Clearance 22 ml/min; Glucose 158 mg/dl (70-99); Potassium 3.7 mmol/L (3.5-5.1); Sodium 133 mmol/L (135-145); Total Bilirubin 0.9 mg/dl (0.2-1.3); eGFR 17.29
[2024-12-16 00:47] LABS: % Basophils 0.3 % (0-2); % Eosinophils 0.9 % (0-6); % Immature Granulocytes 0.8 % (0-0.5); % Lymphocytes 15.1 % (20.5-51.1); % Monocytes 9.4 % (1.7-9.3); % Neutrophils 73.5 % (42.2-75.2); Absolute Eosinophils 0.1 10^3/uL (0-0.7); Absolute Immature Granulocytes 0.1 10^3/uL (0-0.05); Absolute Lymphocytes 1.7 10^3/uL (1.2-3.4); Absolute Monocytes 1.1 10^3/uL (0.1-0.6); Absolute Neutrophils 8.2 10^3/uL (1.4-6.5); Hematocrit 29.5 % (37.0-47.0); Hemoglobin 9.8 g/dL (12.0-16.0); Mean Corp Hgb Conc. 33.2 g/dL (33.0-37.0); Mean Corpuscular Hgb 29.7 pg (27.0-31.0); Mean Corpuscular Volume 89.4 fL (81.0-99.0); Mean Platelet Volume 10.7 fL (7.4-10.4); Nucleated Red Blood Cells % 0.9 %; Platelet Count 215 10^3/uL (130-400); Red Cell Dist. Width 16.1 % (11.5-14.5); White Blood Cell Count 11.2 10^3/uL (4.8-10.8)
[2024-12-16] MEDS: KCL 50 IV (01:04)
[2024-12-16 02:01] LABS: Magnesium 2.2 mg/dl (1.6-2.3)
[2024-12-16] MEDS: VALIUM INJECTION 2 MG IV (02:32)
--- NOTE | 2024-12-16 02:37 | PTCARENOTE ---
Pt c/o urge to void, lowery catheter in place, draining yellow urine. x1 valium IVP ordered and given.
[2024-12-16] MEDS: CORDARONE 518 MG IV ×2 (03:13→19:06)
[2024-12-16] MEDS: LASIX 80 MG IV ×3 (04:05→20:14)
--- NOTE | 2024-12-16 06:46 | W.PN.HOSP.TC ---
Addendum entered and electronically signed by Brandt Enriquez DO 12/16/24 16:18:
I have independently evaluated the patient at the bedside. I reviewed the case with the resident and agree with all documentation unless otherwise specified.
Renal function continuing to worsen despite adequate urine output and use of sequential diuresis and inotropes. Has been unable to titrate milrinone due to inability to place [place] secondary to RV thrombus.
Cardiogenic shock secondary to acute biventricular heart failure with LVEF 15 to 20%. Likely viral myocarditis versus ischemic heart disease. C/B type I cardiorenal syndrome. Currently facilitating transfer to [facility]. Will continue with IV
milrinone, IV Lasix + Diuril. Remains on low-dose oral hydralazine for afterload reduction. Holding other antihypertensives and GDMT. Continue on amiodarone for NSVT associated with milrinone drip. May require LVAD versus Impella if RV systolic
dysfunction not contraindication. Continue to trend BMP, UOP, strict I's and O's with daily weights here. Plan for left heart cath. K >4 and mag >2
Right ventricular thrombus. Persistently present on repeat TTE. Remains on IV heparin drip with plan to transition to DOAC after procedures. Do not feel there is indication for hypercoagulable workup, likely driven by stasis with severe
ventricular dysfunction. Continue to trend CBC on anticoagulation.
IV heparin for DVT prophylaxis
Low-cholesterol, 1500 mL FR
Full code
Pending transfer to [facility]
Original Note:
Today's Communication/Plan
-
Continue milrinone
Continue heparin GTT
Continue IV diuresis
Continue amiodarone
Assessment / Plan
Assessment / Plan
Assessment
74-year-old female with history of hypertension admitted to ICU in critically ill condition for the management of cardiogenic shock
Plan
1. Cardiogenic shock
HFrEF secondary to myocarditis (recent viral infection)
COVID-negative
Weaned off Levophed
Continue milrinone with MAP >65
Hydralazine 10mg TID for afterload reduction
Developed NSVT on milrinone, now on Amio ggt
Repeat echo�ejection fraction 15�20%, right ventricular thrombus
May need Impella vs. LVAD if systolic function does not improve
Eventual left heart catheterization for ischemic evaluation
If patient is stable, CT chest PE study
Cardiology on board
Strict I/os, daily weights
Weight increased overnight despite increased urine output
BNP> 27,000
Trend trops
Eventually will start GDMT, cannot give a beta-michelle.
2. Right ventricular thrombus
Continue heparin GTT
Transition to Eliquis after cath
Patient in MIKI
3. MIKI
No known kidney injury from labs on 10/15/2023
Baseline serum creatinine at 0.9, trending up, now at 2.8
RIJ Trialysis catheter placed, CRRT initiated , but discontinued a due to clots
Currently diuresing on Lasix and chlorothiazide IV
Appreciate nephro input
Potassium at 3.7, repleted.
4. Transaminitis
Resolved
Monitor for now
5. History of hypothyroidism
TSH�2.81
DVT prophylaxis
Heparin GTT
CODE STATUS full code
Diet: Cholesterol-lowering, 1500 mL fluid restriction
DVT prophylaxis: IV heparin drip
Anticipated Discharge: > 48 hours
Subjective/Interval History
-
Date of Service: December 16, 2024
Patient reporting mild lower abdominal pain.
Objective Data
-
Labs:
Laboratory Results
12/16/24 12/16/24
00:06 00:07
WBC 11.2 H
Hgb 9.8 L
Hct 29.5 L
Plt Count 215
APTT 73.3 H
Sodium 133 L
Potassium 3.7
Chloride 103
Carbon Dioxide 21 L
BUN 63 H
Creatinine 2.8 H
Glucose 158 H
Calcium 9.1
Total Bilirubin 0.9
AST 27
ALT 35
Alkaline Phosphatase 94
Vital Signs:
Vital Signs
Temp Pulse Resp BP Pulse Ox
97.1 F 77 18 98/71 93
12/16/24 03:08 12/16/24 04:30 12/16/24 04:30 12/16/24 04:30 12/16/24 04:30
I&O
12/14/24 12/15/24 12/16/24
06:59 06:59 06:59
Intake Total 1100.6 / 1123.5 1607.7 / 1643.3 1113.0 / 1113.0
Output Total 975 / 975 1801 / 1901 1815 / 1815
Balance 125.6 / 148.5 -193.3 / -257.7 -702.0 / -702.0
Physical Exam
-
General: No Apparent Distress
HEENT: Normocephalic and Atraumatic
Respiratory: Clear to Auscultation
Cardiac: Regular Rhythm, S1/S2 and Murmur
GI: Soft, Normal Bowel Sounds and Tender
Genito-urinary: Garcia
Skin: Dry and IV Access / Catheter Site (Right IJ, site CDi)
Neuro: Awake, Alert, Oriented and AO x 3
--- NOTE | 2024-12-16 08:11 | W.PN.NEPH.PH ---
Today's Communication / Plan
-
Maintain IV Lasix 80 mg 3 times daily with 500 mg of Diuril twice daily
No CRRT today as patient remains nonoliguric with urine output in excess of 1700 cc
Conventional dialysis will not likely be possible given her hemodynamic instability
Assessment/Plan
-
74-year-old female with past medical history of hypertension presented to the ER reporting cough, Echo showed ejection fraction of 20% with severe MR/TR and right ventricle thrombus. Was hypotensive in 70s/50s. proBNP > 27,000, elevated
lactate�2.5,
Renal consult for acute kidney injury with a creatinine of 2
Patient denies any alcohol use. She takes antihypertensive medication for many years well-controlled.
COVID-19 and flu test done earlier in the week was negative
Impression.
Acute kidney injury with creatinine of 2 with admission creatinine 1.7 etiology cardiorenal syndrome as likely etiology
Hematuria 7-10 red blood cells with 3+ albumin on urinalysis
New cardiomyopathy with ejection fraction 20% severe valve disorder MR and TR with right throb
Cardiogenic shock/NSTEMI
Mild transaminitis
Recent viral infection
Hypertension history
Plan.
cardiology managing milrinone, watch ectopy, for amiodarone
Systolic blood pressure around 87-92
Now nonoliguric on high-dose Lasix 80 mg 3 times daily and Diuril ~1800cc
creatinine up to 2.8 and serum sodium down to 133 in setting of advanced cardio renal syndrome
We will hold off further CRRT for now
Follow BMP
keep MAP > 65, patient remains critically ill with worsening renal failure in setting of decompensated congestive heart failure on milrinone and amiodarone
Discussed with patient
critical care time 31minutes
-
-
Date of Service: December 16, 2024
CC / HPI / ROS
-
Chief Complaint:
Presents with cough
History of Present Illness:
Presents with cough increased weight and acute cardiomyopathy acute kidney injury
MIKI worsening with creatinine up to 2.8
On milrinone and Lasix 80 mg IV 3 times daily and Diuril for decompensated heart failure
Remains on amiodarone for ectopy
Patient did not tolerate milrinone wean
Hemoglobin low stable at 9.8
Critically ill in ICU
Review of Systems:.
No chest pain or shortness of breath
Garcia catheter in place
Complains of catheter discomfort
weight up
Labs
-
Labs:
WBC 11.2 10^3/uL (4.8-10.8) H 12/16/24 00:07
RBC 3.30 10^6/uL (4.20-5.40) L 12/16/24 00:07
Hgb 9.8 g/dL (12.0-16.0) L 12/16/24 00:07
Hct 29.5 % (37.0-47.0) L 12/16/24 00:07
Plt Count 215 10^3/uL (130-400) 12/16/24 00:07
Sodium 133 mmol/L (135-145) L 12/16/24 00:07
Potassium 3.7 mmol/L (3.5-5.1) 12/16/24 00:07
Chloride 103 mmol/L (98-107) 12/16/24 00:07
Carbon Dioxide 21 mmol/L (22-30) L 12/16/24 00:07
BUN 63 mg/dl (7-17) H 12/16/24 00:07
Creatinine 2.8 mg/dL (0.6-1.0) H 12/16/24 00:07
eGFR 17.29 12/16/24 00:07
Glucose 158 mg/dl (70-99) H 12/16/24 00:07
Calcium 9.1 mg/dl (8.4-10.2) 12/16/24 00:07
Phosphorus 4.8 mg/dl (2.5-4.5) H 12/15/24 03:14
Oui-Y-Ibazotnmyyi Pept > 53905 pg/ml 12/15/24 03:14
Albumin 3.7 g/dl (3.5-5.0) 12/16/24 00:07
Physical Exam
-
Vital Signs:
Vital Signs
Temp Pulse Resp BP Pulse Ox
97.1 F 77 21 92/73 92
12/16/24 03:08 12/16/24 08:00 12/16/24 08:00 12/16/24 08:00 12/16/24 08:00
Cardiovascular:: Regular rate and rhythm
Respiratory:: Bilateral: Coarse
Lung Excursion:: Normal
Abdomen:: Nontender and Soft
Bowel Sounds:: Normal
Extremity Edema:: None: Bilateral:
Garcia Catheter: Yes
[2024-12-16 08:14] LABS: Glucose - Point of Care 152 mg/dl (70-99)
[2024-12-16] MEDS: APRESOLINE 10 MG PO ×3 (08:46→22:18)
[2024-12-16] MEDS: NOVOLOG FLEXPEN-MODERATE RESISTANCE 1 UNITS SC ×3 (08:46→18:05)
[2024-12-16] MEDS: DESENEX/MITRAZOL/ZEASORB 1 APPLIC TOPICAL ×2 (08:46→20:08)
[2024-12-16] MEDS: NSS (PRESERVATIVE FREE) 10 ML IV (08:47)
[2024-12-16] MEDS: PROTONIX IV 40 MG IV (08:47)
[2024-12-16] MEDS: DIURIL 0.5 GRAM VIAL 0.5 GRAMS IV ×2 (08:47→20:13)
[2024-12-16] MEDS: STERILE WATER FOR INJECTION 18 ML IV ×2 (08:47→20:14)
--- NOTE | 2024-12-16 09:28 | W.PN.INTV ---
Today's Communication / Plan
Recommendations
c/w heparin ggt
c/w milrinone/hydralazine
c/w amio ggt
Transfer to [facility]
Assessment
-
ASSESSMENT:
74 year old female with 2.5 weeks of cough, shortness of breath, fatigue and fever
Cardiogenic Shock
Cardiomyopathy (likely viral vs. ischemic)
Acute Heart Failure with Reduced EF
NSVT
RV Echodensity suspicious for RV Thrombus
MIKI (likely pre-renal)
Metabolic Acidosis
URI, likely viral
Transaminitis (likely shock related)
GERD/Nausea
PLAN:
Still on Milrinone ggt 0.25. Off levophed, pressures still soft -- added Hydralazine 10mg TID for afterload reduction
Off lasix ggt and transitioned to 80mg IV Lasix TID/Diuril BID, had minimal urine output with increasing senior geotechnical engineer -- RIJ Trialysis catheter placed, CRRT initiated, however clotted several times, CRRT stopped -- has been making urine and is net negative,
however weights continue to increase and BUN/senior geotechnical engineer remain elevated -- likely a consequence of poor systolic function -- transfer to [facility]
Saturating well on room air, intermittent nocturnal hypoxemia requiring 1-2L NC. Stable
Developed NSVT on milrinone, now on Amio ggt 1mg
Repeat Echo done this AM showing similar biventricular dysfunction. Unable to wean milrinone. Will transfer to [facility] for continuing cardiac management
On Heparin ggt for suspected RV Thrombus. No signs of active bleeding, hgb/plts stable. Repeat echo today showing stable RV thrombus and biventricular dysfunction
COVID (-), Flu swab negative. Blood Cultures NGTD. Concern for superimposed bacterial PNA is low. No immediate need for abx at this time. C/t monitor CBC/temp curve
A1C 6.4%. Continue on 10U Lantus qhs and c/w MDISS for blood glucose target of 140-180s
Patient with transaminitis and no GI/Abd sx. Likely a consequence of shock/poor perfusion. Will c/t monitor clinically
C/w PO Pepcid for GERD sx
DVT PPx: on heparin ggt
Code Status: full code
Subjective Dataa
Subjective Data
Date of Service:
Date of Service: December 16, 2024
Chief Complaint: Blueprint Cutter Follow Up
Subjective:
Feels like a 'wet rag'. She has no new fevers, chills, chest pain or cough. She is still experiencing fatigue, nocturnal dyspnea with intermittent hypoxemia requiring 1-2L supplemental oxygen, and dyspepsia. She is also complaining of new suprapubic
discomfort associated with her Garcia catheter.
Review of Systems
GI: Other (Dyspepsia )
Genitourinary: Garcia
Objective Data
Data Reviewed
Vital Signs / I&O / Oxygen:
Vital Signs
Temp Pulse Resp BP Pulse Ox
97.5 F 77 21 92/73 92
12/16/24 08:00 12/16/24 08:00 12/16/24 08:00 12/16/24 08:00 12/16/24 08:00
Intake and Output
12/15/24 12/16/24 12/17/24
06:59 06:59 06:59
Intake Total 1607.7 / 1643.3 1113.0 / 1162.2 147.6 / 147.6
Output Total 1801 / 1901 1815 / 1815 200 / 200
Balance -193.3 / -257.7 -702.0 / -652.8 -52.4 / -52.4
SaO2 92
Nasal Cannula flow liters per 2
minute
Physical Exam
General: Comfortable and Good Appetite
HEENT: Normocephalic, Anicteric and Moist Mucous Membranes
Cardiovascular: S1-S2 and Irregular Rhythm
Respiratory: Clear, Non-Labored Respirations and Other (diminished air entry BL)
GI: Soft, Non Distended, Non Tender and Normal Bowel Sounds
Neurology: AO x 3
Skin: Warm and Dry
Labs/Micro/Reports
Lab Data
12/16/24 00:07
12/16/24 00:07
Laboratory Results
12/15/24 12/15/24 12/16/24
12:30 18:03 00:06
APTT 106.9 H 85.8 H 73.3 H
Microbiology
12/12/24 23:53 Blood/Venous Blood Culture - Preliminary
No Growth in 72 hours- Final report to follow
12/11/24 14:02 Blood/Venous Blood Culture - Preliminary
No Growth in 4 days- Final report to follow
12/11/24 14:13 Blood/Venous Blood Culture - Preliminary
No Growth in 4 days- Final report to follow
[2024-12-16] MEDS: PRIMACOR 20 MG 100 IV ×2 (09:34→22:18)
[2024-12-16] MEDS: ZOFRAN 4 MG IV (11:24)
[2024-12-16] MEDS: MAALOX 30 ML PO (11:25)
--- NOTE | 2024-12-16 11:51 | W.PN.CD ---
Today's Communication / Plan
-
[facility] transfer
Cont Milrinone
Impression / Plan
-
Cardiogenic shock possibly 2/2 myocarditis
-diagnosis is a threat to life
-hold hydralazine for now repeat echo pending
- cont milrinone 0.25 --> with combo of lasix and diuril urine output of 1.7L
-requires monitoring of labs/tele
Acute HFrEF
Cardiomyopathy, new, severe
-echo 12/10: EF 20%, severe MR, decreased RV fx, severe TR, +RV thrombus
-etiology may be viral myocarditis: with viral syndrome 2-3 weeks ago
-eventual cath for ischemic eval
-no beta michelle yet
- updated echo below
- Complex situation given borderline BP with worsening Cr and unable to titrate milrinone --> Discussed with [facility] for transfer and they are accepting
RV thrombus:
-IV heparin, with eventual transition to eliquis once cath performed
NSVT
-add amiodarone
Abnormal troponin: myocarditis?
-acute, non ischemic myocardial injury in setting of above
MIKI:
-trend with diuresis
- nephro following
Severe MR, TR, pulm HTN
-diuresis as above
Subjective: Tired this AM
CCT 32 minutes
Echo Dec 15 2024:CONCLUSIONS
Mildly dilated LV with severely reduced systolic function.
LVEF is 15-20% by visual estimation. Severe global diffuse hypokinesis.
Dilated RV with reduced systolic function. RV echodensity concerning for
thrombus measuring 2.2 x 1.1 cm.
Moderate to severe mitral regurgitation.
Moderate tricuspid regurgitation.
Compared to prior from December 10, 2024, possible slight improvement in mitral
regurgitation moderate to severe today, previously severe, as well as tricuspid
regurgitation moderate today, previously severe.
Physical Exam
Vital Signs/Labs
Vital Signs
Temp Pulse Resp BP Pulse Ox
97.5 F 72 16 87/61 93
12/16/24 08:00 12/16/24 10:00 12/16/24 10:00 12/16/24 10:00 12/16/24 10:00
12/15/24 12/16/24 12/17/24
06:59 06:59 06:59
Actual Weight 236 lb 8.896 oz 239 lb 3.225 oz
12/16/24 00:07
12/16/24 00:07
PT 15.0 Sec (11.4-14.6) H 12/12/24 14:58
INR 1.15 12/12/24 14:58
APTT 73.3 Sec (23.4-35.0) H 12/16/24 00:06
Magnesium 2.2 mg/dl (1.6-2.3) 12/16/24 00:07
Magnesium Cancelled 12/16/24 00:07
12/10/24 12/15/24
12:33 03:14
Bmd-T-Umkixcdwray Pept > [id number] > [id number]
Physical Exam
Constitutional: No acute distress
EENT: Anicteric
Cardiovascular: Rhythm & rate is regular and Pedal edema present
Respiratory: Respiratory effort normal and Crackles Present (mild)
GI: Soft
Neuro/Psych: AO x 3
Data Reviewed
-
Date of Service: December 16, 2024
Medical Decision Making: Reviewed Test Results
EKG: Tracing Personally Visualized and interpreted (sr)
Echo: Tracing Personally Visualized and interpreted and Report Reviewed by me
Labs: Labs Reviewed by me
[2024-12-16 12:31] LABS: Glucose - Point of Care 188 mg/dl (70-99)
--- NOTE | 2024-12-16 13:09 | PTCARENOTE ---
Pt drowsy, sleeping on and off. Very poor appetite. Refused breakfast. Ate less than half a bowl of tomato soup for lunch.
Sinus rhythm with frequent PVCs.
SpO2 dipping to 87% on room air. Now 93-94% on 2L NC.
Pt noted to be gaging. Reported upset stomach/nausea. One time dose Maalox and Zofran given.
Urine clear yellow. Urine output 40-105ml/hr.
Remains on Milrinone, Heparin, and Amiodarone gtts.
All other assessments unchanged.
[2024-12-16] MEDS: KCL ELIXIR 20 MEQ PO (15:16)
[2024-12-16 17:29] LABS: Glucose - Point of Care 150 mg/dl (70-99)
[2024-12-16] MEDS: HEPARIN 25000 UNITS/250 ML IV ×2 (19:08→22:17)
[2024-12-16 21:28] LABS: Glucose - Point of Care 163 mg/dl (70-99)
[2024-12-16] MEDS: LANTUS 0.1 UNITS SC (22:32)
--- NOTE | 2024-12-16 23:50 | PTCARENOTE ---
Pt D/C'd to [facility] via [place] ground transport. Pt taken w/ personal belongings.
--- NOTE | 2024-12-17 09:05 | CM ---
Patient was discharged to [facility] on 12/16/24 in the evening.
--- NOTE | 2024-12-18 07:08 | W.DCSUMMARY ---
Documented by User: Morales Avery MD, Resident 12/18/24 07:52
Discharge Summary
Discharge Data
Date of Admission: 12/10/24
Date of Discharge: 12/16/24
-
Pending Results: No
Hospital Course
Discharging Physician : Dr. Enriquez,
Disposition : [facility] [place] transfer
Principal Discharge diagnosis : Cardiogenic shock
Hospital Course : 74-year-old female with past medical history of hypertension presented to the ER reporting cough, fever, fatigue and shortness of breath that started 3-1/2 weeks ago. Patient has been producing purulent sputum when she coughs,
tried Mucinex and Tessalon Perles without much help. She also reports having low-grade fevers with Tmax of 100.5. Patient has a history of IBS with chronic abdominal pain and it has worsened over the past 3 weeks. She had PND and orthopnea. No
recent history of travel, sick contacts. Presentation in the ER EKG showed NSR with low voltage QRS. Echo showed ejection fraction of 20% with severe MR/TR and right ventricle thrombus. Was hypotensive in 80s/50s. Trops elevated at 12.5, proBNP
> 27,000, elevated lactate�2.5, cardiology was consulted and she was started on milrinone and Levophed for cardiogenic shock. Heparin GTT was initiated for RV thrombus. Suspect cardiomyopathy due to viral myocarditis (viral prodrome 3 weeks ago).
Patient did not have a prior history of kidney injury, her baseline creatinine was 0.9. Patient's creatinine was trending high at 2.0, BUN at 63�MIKI , likely prerenal. Patient did not have enough urine output, started diuresing with IV Lasix,
losartan held. Nephrology consulted. Patient was transitioned to Lasix gtt due to limited urine output.Protein creatinine ratio 0.2, no plan on dialysis.
Cardiology following, added hydralazine PO 10 mg 3 times daily for afterload reduction.Unable to place RHC/[facility] due to RV thrombus and risk for dislodgment. Not able to proceed with LHC for ischemic evaluation as the patient is unstable.
Patient has developed ectopy/NSVT on milrinone infusion, cardiology started IV amiodarone gtt., monitored on telemetry.
Patient remained oligoanuric despite being diuresed with Lasix, metolazone. Urine sodium less than 5, consistent with severe decrease in renal perfusion with underlying cardiogenic shock. Nephrology started her on CRRT after right IJ catheter
placement, but did not continue further with dialysis as the patient was no more oliguric, and there were clots in the tube. Heparin GTT running.Urine output and renal function improving with high-dose IV Lasix and chlorothiazide.
Patient also had mild transaminitis�likely related to shock. Her blood sugars have been monitored and adequately controlled with insulin Lantus.
Repeat echo showed acute biventricular heart failure with LVEF 15-20%. Despite the above measures, patient has not been clinically improving, complicated by type I cardiorenal syndrome. After speaking with the patient and her family members,
cardiology facilitated transfer to tertiary care center, [facility] as the patient might need LVAD versus [facility].
At the time of transfer patient is on milrinone 0.25, hydralazine, Lasix, chlorthalidone, amiodarone gtt., heparin GTT, on 2L NC .
Important imaging findings :
Chest x-ray�12/10/2024� The heart is mildly enlarged. There is an ectatic aorta. There is patchy airspace disease in both lower lobes. There is no focal consolidation or pleural effusion. There is hyperaeration with flattening of the diaphragms and an
increase in AP diameter of the chest.There are prominent osteophytes in the thoracic spine.
Abdominal x-ray�12/10/2024ir is noted in small and large bowel. Small bowel loops are not distended. There is no evidence of intraperitoneal free air.
There are surgical clips in the right upper quadrant. There are no renal or ureteral calculi. There are calcifications in the pelvis, likely phleboliths. There are degenerative changes in the lumbar spine and involving both hips. There are probable
artifacts overlying the left hip.
Echo�12/15/2024�Mildly dilated LV with severely reduced systolic function.
LVEF is 15-20% by visual estimation. Severe global diffuse hypokinesis.
Dilated RV with reduced systolic function. RV echodensity concerning for
thrombus measuring 2.2 x 1.1 cm.
Moderate to severe mitral regurgitation.
Moderate tricuspid regurgitation.
Compared to prior from December 10, 2024, possible slight improvement in mitral
regurgitation moderate to severe today, previously severe, as well as tricuspid
regurgitation moderate today, previously severe.
Discharge Plan
-
Patient Disposition: Acute Care Hospital
Condition: Critical
Discharge Orders:
Discharge Patient (As Directed); Ordered 12/16/24
Ordered By: Morales Avery
Discharge Date and Time
Discharge Date/Time: 12/16/24 23:50
Print Language: TUNISIAN

Documented by User: Brandt Enriquez DO 12/18/24 08:03
Discharge Summary
Discharge Data
Date of Admission: 12/10/24
Date of Discharge: 12/18/24
Total time spent discharging patient (in min): 40
Discharge Plan
-
Patient Disposition: Acute Care Hospital
Condition: Critical
Discharge Orders:
Discharge Patient (As Directed); Ordered 12/16/24
Ordered By: Morales Avery
Discharge Date and Time
Discharge Date/Time: 12/16/24 23:50
Print Language: TUNISIAN
== END 2024-12-16 23:50 | disposition short-term general hospital (02) | DRG 314 ==
LOC: ICU 16:48
PROVIDERS: Nurse Practitioner; Nurse Practitioner Primary Care; Physician Assistant; Radiology Diagnostic Radiology; Specialist; Student in an Organized Health Care Education/Training Program; ADMITTING PHYSICIAN Family Medicine; ATTENDING PHYSICIAN Internal Medicine; CONSULT PHYSICIAN Internal Medicine; CONSULT PHYSICIAN Internal Medicine Nephrology; EMERGENCY PHYSICIAN Emergency Medicine; FAMILY PHYSICIAN Internal Medicine; OTHER PHYSICIAN Internal Medicine
PROC: 02HV33Z Insertion of Infusion Device into Superior Vena Cava, Percutaneous Approach (ICD-10-PCS; 2024-12-11)
PROC: B5181ZA Fluoroscopy of Superior Vena Cava using Low Osmolar Contrast, Guidance (ICD-10-PCS; 2024-12-11)
PROC: 05HM33Z Insertion of Infusion Device into Right Internal Jugular Vein, Percutaneous Approach (ICD-10-PCS; 2024-12-14)
PROC: B543ZZA Ultrasonography of Right Jugular Veins, Guidance (ICD-10-PCS; 2024-12-14)
DX: B33.22 Viral myocarditis (principal); I50.21 Acute systolic (congestive) heart failure; R57.0 Cardiogenic shock; N17.9 Acute kidney failure, unspecified; E87.20 Acidosis, unspecified; I11.0 Hypertensive heart disease with heart failure; I51.3 Intracardiac thrombosis, not elsewhere classified; E03.9 Hypothyroidism, unspecified; Z11.52 Encounter for screening for COVID-19; E66.9 Obesity, unspecified; Z68.39 Body mass index [BMI] 39.0-39.9, adult; Z86.16 Personal history of COVID-19; I34.0 Nonrheumatic mitral (valve) insufficiency; E87.5 Hyperkalemia; Z90.49 Acquired absence of other specified parts of digestive tract; Z88.5 Allergy status to narcotic agent; K21.9 Gastro-esophageal reflux disease without esophagitis; K58.9 Irritable bowel syndrome, unspecified; Z96.651 Presence of right artificial knee joint
CPT/HCPCS: 93308; 71045; 71046; 74019; 80048; 80053; 81003; 81015; 82248; 82330; 82550; 82570; 82607; 82728; 82746; 82805; 82962; 83036; 83540; 83550; 83605; 83690; 83735; 83880; 84100; 84145; 84156; 84300; 84443; 84484; 85025; 85045; 85610; 85730; 87040; 87502; 87811; 93005; 93306; 93321; 93325; 96365; 96367; 96375; 97116; 97163; 97167; 97530; 97535; 99285; J1205; J2260